=== PATIENT | female | born 1980 | race Caucasian/White ===

== ENCOUNTER 2020-02-01 16:02 | Emergency (ER) | payer BC, SELFPAY ==
--- NOTE | ~2020-02-01 | CT_ITS ---
EXAMINATION: CT brain wo con INDICATION: Headache COMPARISON: None TECHNIQUE: Standard unenhanced head CT. The dose-length product (DLP) was 605.33 mGy-cm. The mA was a djusted according to patient size. Iterative reconstruction technique was employed. FINDINGS: There is no intracranial hemorrhage, acute infarction, or abnormal mass lesion. The ventric les are normal. There is no abnormal mass effect or midline shift. The nava-white matter differentiat ion is normal. The basal cisterns are patent. The orbits are normal. The paranasal sinuses, mastoids and calvarium are normal. IMPRESSION: 1. No acute intracranial abnormality. Reviewed, dictated and finalized at location A. NOLOGIST
[2020-02-01 16:23] VITALS: BP 143/75; PULSE 83; RESP 17; TEMP 36.8; O2SAT 99
--- NOTE | 2020-02-01 17:54 | ED.HA ---
HPI - Headache General Chief Complaint: Headache Stated Complaint: MIGRAINE Time Seen by Provider: 02/01/20 17:33 Source: patient Mode of arrival: ambulatory Limitations: no limitations History of Present Illness HPI Narrative: This is a 39 year old female that presents to the ER for headaches for the last 3 weeks. Reports she has history of empty sella syndrome so gets headaches about once weekly. Reports over the last couple weeks she has been getting headaches daily. Reports no relief with uyop-fwa-ensdrve medications. Reports she also has a history of epilepsy for which she saw a neurologist, but she recently moved to the area and does not have one here. Reports some blurry vision with headaches. Denies fever, congestion, cough, vomiting, numbness, or weakness. Related Data Allergies Allergy/AdvReac Type Severity Reaction Status Date / Time tizanidine [From Zanaflex] Allergy Mild Unknown Verified 02/01/20 16:44 phenobarbital Allergy Unknown Verified 02/01/20 16:03 Review of Systems Review of Systems: Narrative: CONSTITUTIONAL: Denies fever EYES: Reports visual changes ENT: Denies rhinorrhea, congestion, sore throat RESPIRATORY: Denies cough GASTROINTESTINAL: Denies vomiting SKIN: Denies rash NEUROLOGIC: Reports headache. Denies numbness, or weakness. All systems reviewed & are unremarkable except as noted in HPI and below PMFSH Past Medical History Medical History (Updated 02/01/20 @ 19:29 by Dasha Diaz PA-C) Empty sella syndrome Epilepsy Surgical History Surgical History H/O section H/O: hysterectomy (~2008) Hx of appendectomy (~2018) Family History Family History Father Diabetes mellitus Hypertension Mother COPD (chronic obstructive pulmonary disease) Congestive heart failure Eczema Social History Social History Smoking status: Never smoker Second hand tobacco smoke exposure: No Alcohol intake: current Substance use: never Gender identity (if verbalized by the patient): Female Exam Narrative: Exam Narrative: GENERAL: Well-appearing, well-nourished, and in no acute distress. HEAD: Normocephalic, atraumatic. EYES: PERRLA and EOMI. ENT: Nares clear, no rhinorrhea or epistaxis. Mucous membranes moist. Oropharynx without tonsillar hypertrophy exudate or other lesions. Bilateral TMs pearly nava non-bulging NECK: Supple. No adenopathy or masses. CHEST: Clear to auscultation. No respiratory distress. No wheezes rales or rhonchi HEART: Regular rate and rhythm. No murmur heard. Normal peripheral pulses. EXTREMITIES: Normal range of motion. No edema. Strength equal in bilateral upper and lower extremities (5/5) SKIN: Warm, dry, no rash. NEURO: No focal deficits. Alert and oriented x3. Cranial nerves II through XII grossly intact. Normal [id number] PSYCH: Normal mood and affect Course Consultations Consultation #1: Spoke with Dr. Ott about patient and work-up will follow-up in clinic. Date: 02/01/20 Time: 19:27 Vital Signs Vital signs: Vital Signs Temperature 98.2 F 02/01/20 16:23 Pulse Rate 83 02/01/20 16:23 Respiratory Rate 17 02/01/20 16:23 Blood Pressure 143/75 H 02/01/20 16:23 Pulse Oximetry 99 02/01/20 16:23 Temperature 98.1 F 02/01/20 19:15 Pulse Rate 60 02/01/20 19:15 Respiratory Rate 16 02/01/20 19:15 Blood Pressure 102/59 L 02/01/20 19:15 Pulse Oximetry 95 02/01/20 19:15 MDM - Headache MDM Narrative Medical decision making narrative: Patient presents the emergency department for increasing headaches over the last couple of weeks. Reports history of empty sella syndrome for which she usually gets headaches that can be relieved by hccv-jsv-fnilvfx medicines. Also reports history of epilepsy that is controlled with lamotrigine and Keppra. [place]
[2020-02-01] MEDS: KETOROLAC 30 MG/ML VIAL (*BKC) IV PUSH (18:06)
[2020-02-01] MEDS: diphenhydrAMINE HCl INJ 50 MG/ML VIAL 25 MG IV PUSH (18:08)
[2020-02-01] MEDS: METOCLOPRAMIDE HCL INJ 10 MG/2 ML VIAL IV PUSH (18:11)
[2020-02-01] MEDS: SODIUM CHLORIDE 0.9% IV 1,000 ML 999 ML IV CONT (18:55)
[2020-02-01 19:15] VITALS: BP 102/59; PULSE 60; RESP 16; TEMP 36.7; O2SAT 95
[2020-02-01 20:09] VITALS: BP 121/74; PULSE 64; RESP 16; TEMP 36.6; O2SAT 98
== END 2020-02-01 20:15 | disposition home or self-care (01) ==
PROVIDERS: Emergency Provider Emergency Medicine; PCP Family Medicine
DX: R51.9 Headache, unspecified (principal); G40.909 Epilepsy, unspecified, not intractable, without status epilepticus; E23.6 Other disorders of pituitary gland
CPT/HCPCS: 70450; 96361; 96365; 96375; 99284; J0131; J1200; J1885; J2765; J7030

== ENCOUNTER 2020-03-17 08:31 | Outpatient (CLI) | payer BC, SELFPAY ==
--- NOTE | ~2020-03-17 | MR_ITS ---
EXAMINATION: MR brain/brain stem wo con EXAM DATE: 03/17/2020 08:59 INDICATION: Migraine headaches, symptoms 3 months. TECHNIQUE: Magnetic resonance imaging (MRI) of the brain/brain stem obtained without contrast. Jax al T1, axial diffusion, gradient echo (T2*), T1, T2, FLAIR sequences obtained. Correlation is made t o Head CT 02/01/2020 FINDINGS: There are no areas of restricted diffusion to suggest acute infarction. There is no acute hemorrhage seen on the T2*, a hemosiderin sensitive sequence. No intraparenchymal brain mass. The ve ntricles are normal in size. There are no extra-axial collections. Flow voids are seen in the cereb ral arteries on the T2-weighted sequences consistent with their expected patency. The orbits are unr emarkable. Soft tissue is unremarkable. IMPRESSION: 1. Normal brain MRI examination. Reviewed, dictated and finalized at location A. ROOM CLERK
== END 2020-03-17 08:32 ==
PROVIDERS: Visit Provider Psychiatry & Neurology Neurology
DX: G43.909 Migraine, unspecified, not intractable, without status migrainosus (principal)
CPT/HCPCS: 70551

== ENCOUNTER 2020-03-22 01:33 | Outpatient (CLI) | payer BC, SELFPAY ==
[2020-03-22 18:47] LABS: SARS-CoV-2 RNA PCR Negative
== END 2020-03-22 01:34 | disposition home or self-care (01) ==
LOC: ANHCOVIDDT 01:33
PROVIDERS: Family Medicine; Visit Provider Psychiatry & Neurology Neurology
DX: Z01.812 Encounter for preprocedural laboratory examination (principal); Z20.822 Contact with and (suspected) exposure to COVID-19
CPT/HCPCS: C9803; U0003; U0005

== ENCOUNTER 2020-03-25 08:55 | Outpatient (CLI) | payer BC, SELFPAY ==
[2020-03-21 11:42] VITALS: BMI 33.8
[2020-03-25] VITALS (9 sets, daily range): BP systolic 110–129; BP diastolic 63–81; PULSE 58–76; RESP 16–20; O2SAT 96–99
--- NOTE | ~2020-03-25 | XR_ITS ---
EXAMINATION: XR lumbar puncture diagnostic DATE: 03/25/2020 11:04 INDICATION: Migraine headache. TECHNIQUE: The procedure including the risks, benefits, and alternatives was discussed with the patie nt. Risks discussed included spinal headache, bleeding, and infection. The patient understood the ris ks and agreed to proceed. A timeout was performed to verify the patient's name, date of , and procedure to be performed. The skin overlying the L3-L4 level was prepped and draped in usual steri le fashion. Subcutaneous 1% lidocaine was used for local anesthesia. A 20 gauge spinal needle was a dvanced under fluoroscopic guidance. The needle was removed and the entry site was cleaned and dresse d. There were no immediate complications. Fluoroscopy exposure time was 0.0 minutes. The total numbe r of images was 1. FINDINGS: Real-time fluoroscopy demonstrates the needle at the L3-L4 level. The opening pressure was 13 cm water (Normal range is variably defined as 6-20 cm water and up to 25 cm water in obese patient s. Pressure >25 cm water is one of the modified Dandy criteria for idiopathic intracranial hypertensi on). 14 mL of clear, colorless fluid was collected in 4 tubes. IMPRESSION: 1. Successful fluoro-guided lumbar puncture. Reviewed, dictated and finalized at location A. TH INFORMATION TECHNOLOGIST
[2020-03-25 09:19] LABS: Mean Platelet Volume 9.7 fl (7.4-10.4); Platelet Count Result 217 k/mm3 (150-375)
[2020-03-25 09:53] LABS: INR 0.9; Prothrombin Time 12.6 Seconds (11.1-14.7)
[2020-03-25 11:00] LABS: Glucose CSF 57 mg/dL (40-70); Total Protein CSF 67 mg/dL (12-60)
--- NOTE | 2020-03-25 11:31 | SUR.PHASEII ---
RN checked on patient about 1125. Patient stated she had some discomfort at the puncture site and rated it a 6. RN assessed site and there is no drainage at this time. Patient also stated that she feels jittery. RN contacted Dr. Vargas. Dr. Vargas came to the bedside to assess patient himself.
[2020-03-25 11:32] LABS: Appearance CSF Clear (Clear); CSF source CSF; Color CSF Colorless (Colorless); Lymphocytes CSF 93 % (40-80); Monocytes CSF 5 % (15-45); Neutrophils CSF 2 % (0-6); Nucleated Cell CSF 5 /uL (0-5); Red Blood Cell CSF 0 (0-2)
--- NOTE | 2020-03-25 13:19 | SUR.PHASEII ---
1230 - DR PRABHAKAR CALLED WITH UPDATE. OKAYED FOR PT TO BE DISCHARGE
== END 2020-03-25 08:56 | disposition home or self-care (01) ==
PROVIDERS: Radiology Diagnostic Radiology; PCP Family Medicine; Visit Provider Psychiatry & Neurology Neurology
DX: G43.909 Migraine, unspecified, not intractable, without status migrainosus (principal)
CPT/HCPCS: 36415; 62328; 82945; 84157; 85049; 85610; 87070; 89051

== ENCOUNTER 2020-03-27 10:30 | Emergency (ER) | payer BC, SELFPAY ==
[2020-03-27] VITALS (21 sets, daily range): BP systolic 95–144; BP diastolic 54–102; PULSE 52–90; RESP 9–24; TEMP 36.4; O2SAT 97–100
--- NOTE | ~2020-03-27 | XR_ITS ---
EXAMINATION: XR injection blood patch w img EXAM DATE: 03/27/2020 14:00 INDICATION: Spinal headache. TECHNIQUE: Fluoroscopy used during XR injection blood patch w img performed by Dr. Ortiz. The DAP f or this procedure was 16.7 mGym2. Correlation made with LP image from 03/25/2020 Patient's headache and history was discussed with the patient who had a lumbar puncture 2 days earlie r. Benefits, risks, alternatives were discussed with her. She agreed to proceed with this blood patch as treatment for her headache. The same L3-4 level was sterilized and prepped in standard fashion. A total of 3 cc 1% lidocaine was injected for local anesthetic. The 18-gauge noncutting epidural needle was utilized with loss of resi stance technique. This needle was advanced into the epidural space. A lateral projection confirmed ne edle tip depth. At no time did CSF freely flow through the needle, including during Valsalva. Vascula r access nurse Elena placed in IV in patients forearm under sterile technique. She withdrew 15 mL of p atient's own blood after needle was in position. This was then injected slowly through the epidural n eedle. Needle was then removed. There are no immediate complications. Patient returned to emergency r o for 2 hours observation. FINDINGS: Images demonstrate localization of the L3-4 level and left paracentral approach. Lateral p rojection demonstrates tip of needle overlying the epidural canal. IMPRESSION: Successful L3-4 blood patch administration. Reviewed, dictated and finalized at location B. UM METALIZER OPERATOR
[2020-03-27 11:26] LABS: Basophils Absolute Auto 0.1 K/mm3 (0.0-0.1); Basophils Percent Auto 0.8 % (0.2-1.2); Eosinophils Absolute Auto 0.2 K/mm3 (0-0.3); Eosinophils Percent Auto 2.3 % (0-4.4); Hematocrit 43.2 % (37.0-47.0); Hemoglobin 14.8 g/dL (12.0-15.0); Immature Granulocyte Absolute 0.03 K/mm3 (0.00-0.031); Immature Granulocyte Percent A 0.4 % (0-0.5); Lymphocytes Absolute Auto 2.38 K/mm3 (0.9-3.2); Lymphocytes Percent Auto 31.7 % (18.3-44.2); Mean Corpuscular HGB Conc 34.3 g/dl (32-36); Mean Corpuscular Hemoglobin 30.5 pg (26-34); Mean Corpuscular Volume 89.1 fl (80-100); Mean Platelet Volume 9.9 fl (7.4-10.4); Monocytes Absolute Auto 0.5 K/mm3 (0.1-0.6); Monocytes Percent Auto 6.8 % (2.6-8.5); Neutrophils Absolute Auto 4.4 K/mm3 (1.3-6.7); Platelet Count Result 245 k/mm3 (150-375); Red Blood Count 4.85 M/mm3 (4.2-5.4); Red Cell Distribution Width 11.6 % (11.5-14.5); White Blood Count 7.5 K/mm3 (4.5-10.0)
[2020-03-27 11:38] LABS: Anion Gap 5 mmol/L (8-16); Blood Urea Nitrogen 12 mg/dL (7-17); Calcium 9.1 mg/dL (8.4-10.2); Carbon Dioxide 28 mmol/L (22-30); Chloride 104 mmol/L (98-107); Estimated CRCL calculation 102 ml/min; Estimated Glomerular Filt Rate > 60; Glucose 96 mg/dL (65-105); Potassium 3.7 mmol/L (3.4-5.0); Sodium 137 mmol/L (137-145)
[2020-03-27] MEDS: KETOROLAC 30 MG/ML VIAL (*BKC) IV PUSH (11:44)
[2020-03-27] MEDS: METOCLOPRAMIDE HCL INJ 10 MG/2 ML VIAL IV PUSH (11:44)
[2020-03-27] MEDS: SODIUM CHLORIDE 0.9% IV 1,000 ML 999 ML IV CONT (11:44)
[2020-03-27] MEDS: diphenhydrAMINE HCl INJ 50 MG/ML VIAL 25 MG IV PUSH (11:44)
--- NOTE | 2020-03-27 12:03 | ED.GENADULT ---
HPI - General Adult General Chief complaint: Headache Stated complaint: Headache, Vomiting Time Seen by Provider: 03/27/20 11:12 Source: patient Mode of arrival: ambulatory Limitations: no limitations History of Present Illness HPI narrative: Patient is a 39-year-old female who presents to emergency department for evaluation of headache and neck pain patient had a lumbar puncture performed on Tuesday at [facility] for migraine headaches that she has been experiencing she is followed by neurology at [place] who had ordered the lumbar puncture patient notes that since she has had neck and head pain had similar occurrence in the past when she had a lumbar puncture patient denies fever or URI symptoms or other complaints and on arrival appears to be uncomfortable but in no distress has not taken anything for her symptoms. Patient notes the headache is caused associated nausea and vomiting Related Data Home Medications Medication Instructions Recorded Confirmed lamotrigine [Lamictal] 100 mg PO BID 03/21/20 03/21/20 lamotrigine [Lamictal] 200 mg PO .at night 03/21/20 03/21/20 levetiracetam [Keppra] 1,000 mg PO Q12H 03/21/20 03/21/20 ubrogepant [Ubrelvy] 100 mg PRN 03/21/20 03/21/20 Allergies Allergy/AdvReac Type Severity Reaction Status Date / Time tizanidine [From Zanaflex] Allergy Mild Unknown-RECEIVED Verified 03/27/20 10:36 AN SMALL CHILD phenobarbital Allergy Unknown-RECEIVED Verified 03/27/20 10:36 A SMALL CHILD PMFSH Past Medical History Medical History Empty sella syndrome Epilepsy Surgical History Surgical History H/O section H/O: hysterectomy (~2008) Hx of appendectomy (~2018) Family History Family History Father Diabetes mellitus Hypertension Mother COPD (chronic obstructive pulmonary disease) Congestive heart failure Eczema Social History Social History Smoking status: Never smoker Second hand tobacco smoke exposure: No Alcohol intake: current Substance use: never Gender identity (if verbalized by the patient): Female Exam Narrative: Exam Narrative: GENERAL: Well-appearing, well-nourished, uncomfortable and in no acute distress. HEAD: Normocephalic, atraumatic. EYES: PERRLA and EOMI. ENT: Nares clear, no rhinorrhea or epistaxis. Mucous membranes moist. CHEST: Clear to auscultation. No respiratory distress. No wheezes rales or rhonchi HEART: Regular rate and rhythm. No murmur heard. Normal peripheral pulses. ABDOMEN: Soft, nontender, nondistended EXTREMITIES: Normal range of motion. No edema. SKIN: Warm, dry, no rash. NEURO: No focal deficits. Alert and oriented x3. Cranial nerves II through XII grossly intact PSYCH: Normal mood and affect. Course Reevaluation(s) Reevaluation #1: Patient notes that she is feeling markedly better at this time feels comfortable for discharge was observed 2 hours after the procedure is recommended Date: 03/27/20 Time: 16:07 Consultations Consultation #1: Discussed case with radiologist Dr. Vargas who will take the patient over to perform blood patch Date: 03/27/20 Time: 12:04 Vital Signs Vital signs: Vital Signs Temperature 97.5 F L 03/27/20 10:34 Pulse Rate 78 03/27/20 10:34 Respiratory Rate 18 03/27/20 10:34 Blood Pressure 144/85 H 03/27/20 10:34 Pulse Oximetry 99 03/27/20 10:34 Temperature 97.5 F L 03/27/20 10:34 Pulse Rate 52 L 03/27/20 14:37 Respiratory Rate 16 03/27/20 14:37 Blood Pressure 138/78 03/27/20 14:37 Pulse Oximetry 99 03/27/20 14:37 Medical Decision Making MDM Narrative Medical decision making narrative: Patient received blood patch for likely post LP headache with marked improvement with blood patch. There are o focal neurolo
[2020-03-27 12:56] LABS: INR 0.9; Prothrombin Time 12.7 Seconds (11.1-14.7)
[2020-03-27 12:58] LABS: Partial Thromboplastin Time 29.8 SECONDS (22.3-36.8)
== END 2020-03-27 16:50 | disposition home or self-care (01) ==
PROVIDERS: Emergency Provider Emergency Medicine; PCP Family Medicine
DX: G97.1 Other reaction to spinal and lumbar puncture (principal); G40.909 Epilepsy, unspecified, not intractable, without status epilepticus
CPT/HCPCS: 36415; 62273; 77003; 80048; 85025; 85610; 85730; 96365; 96375; 99284; J0131; J1200; J1885; J2765; J7030

== ENCOUNTER 2021-02-11 16:32 | Emergency (ER) | payer BC, SELFPAY ==
--- NOTE | ~2021-02-11 | CT_ITS ---
EXAMINATION: CT brain wo con DATE: 02/11/2021 21:48 INDICATION: Headache TECHNIQUE: Computed tomography (CT) of the head was performed without intravenous contrast. Sagittal and coronal reconstructions were performed. The mA was adjusted according to patient size. Iterative reconstruction technique was employed. The dose-length product was 605.33 mGy-cm. COMPARISON: head CT dated 02/01/2020 FINDINGS: No acute intracranial hemorrhage, acute infarction or abnormal extra axial fluid collection. Ventricl es are normal and symmetric. No mass/mass effect. The orbits, paranasal sinuses and mastoid air cells are normal. IMPRESSION: 1. Normal head CT. Reviewed, dictated and finalized at location H. ER OPERATOR IMPRESSION: 1. Normal head CT.
--- NOTE | ~2021-02-11 | XR_ITS ---
EXAMINATION: XR chest 2V 02/11/2021 17:11 INDICATION: Left-sided chest pain PROCEDURE: 2 view chest COMPARISON: No prior studies for comparison. FINDINGS: The lungs are clear. The cardiomediastinal silhouette is within normal limits. There are no pleural effusions. There is no pneumothorax suspected. IMPRESSION: 1: NO ACUTE CARDIOPULMONARY DISEASE. Reviewed, dictated and finalized at location A. ICAL PHLEBOTOMIST
--- NOTE | 2021-02-11 16:45 | ECG_ITS ---
Measurements Intervals [place] Rate: 80 P: 21 [place]: 160 QRS: 39 QRSD: 82 T: 18 QT: 342 QTc: 395 Interpretive Statements SINUS RHYTHM BASELINE ARTIFACT- I, II, III, AVF NORMAL ECG Electronically Signed On 02-12-2021 7:37:42 EMISSIONS ENGINEER by Mani Meyer D.O.
[2021-02-11 16:55] VITALS: BP 146/94; PULSE 71; RESP 18; TEMP 36.2; O2SAT 99
[2021-02-11 17:24] LABS: Basophils Absolute Auto 0.1 K/mm3 (0.0-0.1); Basophils Percent Auto 0.8 % (0.2-1.2); Eosinophils Absolute Auto 0.3 K/mm3 (0-0.3); Eosinophils Percent Auto 2.6 % (0-4.4); Hematocrit 40.7 % (37.0-47.0); Hemoglobin 14.1 g/dL (12.0-15.0); Immature Granulocyte Absolute 0.03 K/mm3 (0.00-0.031); Immature Granulocyte Percent A 0.3 % (0-0.5); Lymphocytes Absolute Auto 2.75 K/mm3 (0.9-3.2); Mean Corpuscular HGB Conc 34.6 g/dl (32-36); Mean Corpuscular Hemoglobin 31.8 pg (26-34); Mean Corpuscular Volume 91.9 fl (80-100); Mean Platelet Volume 9.7 fl (7.4-10.4); Monocytes Absolute Auto 0.9 K/mm3 (0.1-0.6); Monocytes Percent Auto 8.4 % (2.6-8.5); Neutrophils Absolute Auto 6.2 K/mm3 (1.3-6.7); Neutrophils Percent Auto 60.9 % (45.5-73.1); Platelet Count Result 225 k/mm3 (150-375); Red Blood Count 4.43 M/mm3 (4.2-5.4); White Blood Count 10.2 K/mm3 (4.5-10.0)
[2021-02-11 17:36] LABS: Alanine Aminotransferase 15 U/L (4-35); Albumin Level 4.5 g/dL (3.5-5.1); Alkaline Phosphatase 52 U/L (38-126); Anion Gap 6 mmol/L (8-16); Aspartate Amino Transferase 22 U/L (14-36); Bilirubin,Total 0.4 mg/dL (0.2-1.3); Blood Urea Nitrogen 16 mg/dL (7-17); Calcium 9.2 mg/dL (8.4-10.2); Carbon Dioxide 27 mmol/L (22-30); Chloride 101 mmol/L (98-107); Estimated CRCL calculation 105 ml/min; Estimated Glomerular Filt Rate > 60; Glucose 102 mg/dL (65-110); INR 0.9; Lipase 121 U/L (23-300); Potassium 3.5 mmol/L (3.4-5.0); Prothrombin Time 12.3 Seconds (11.1-14.7); Sodium 134 mmol/L (137-145)
[2021-02-11 17:37] LABS: Partial Thromboplastin Time 30.1 SECONDS (22.3-36.8)
[2021-02-11 17:47] LABS: Troponin I < 0.012 ng/mL (0.000-0.034)
[2021-02-11 19:46] VITALS: BP 160/78; PULSE 73; RESP 18; TEMP 36.8; O2SAT 97
--- NOTE | 2021-02-11 21:39 | ED.CHESTPAIN ---
HPI - Chest Pain General Chief Complaint: Chest Pain Stated Complaint: chest pain, onset 0100 Time Seen by Provider: 02/11/21 21:25 Source: patient Mode of arrival: ambulatory Limitations: no limitations History of Present Illness HPI narrative: Patient is a 40-year-old female complaining of chest pain, left chest wall, sharp, nonradiating, 6, currently down to 1 out of 10 started around 1 AM this morning states it woke her up from sleep. Patient also complaining of a headache, frontal, 3 out of 10, worse when she bends down started today. Patient also complaining of having a seizure 5 days ago that lasted for less than 1 minute, states that she has not had a seizure since 2009, currently taking Keppra, she does have a history of epilepsy. Patient denies any speech or visual disturbance, dizziness, neck pain or stiffness, focal weakness or numbness, or unsteady gait. Patient denies any shortness of breath, abdominal pain, nausea, vomiting, diaphoresis, fever or chills. Related Data Home Medications Medication Instructions Recorded Confirmed ubrogepant [Ubrelvy] 100 mg PRN 03/21/20 03/21/20 Allergies Allergy/AdvReac Type Severity Reaction Status Date / Time tizanidine [From Zanaflex] Allergy Mild Unknown-RECEIVED Verified 03/27/20 10:36 AN SMALL CHILD phenobarbital Allergy Unknown-RECEIVED Verified 03/27/20 10:36 A SMALL CHILD Review of Systems Review of Systems: All systems reviewed & are unremarkable except as noted in HPI and below Constitutional: Constitutional: Denies body ache(s), Denies chills, Denies excessive sweating, Denies fatigue, Denies fever(s), Denies headache(s), Denies lethargy, Denies malaise, Denies weakness and Denies weight loss Eyes: Eyes: Denies blurry vision, Denies change in vision and Denies loss of vision ENT: Denies dizziness, Denies ear discharge, Denies headache(s), Denies lip swelling, Denies epistaxis, Denies nasal congestion, Denies neck pain, Denies throat swelling and Denies tongue swelling Cardiovascular: Cardiovascular: Denies diaphoresis, Denies rapid heart rate, Denies edema, Denies irregular heart rhythm, Denies lightheadedness, Denies palpitations, Denies dyspnea and Denies dyspnea on exertion Respiratory: Respiratory: Denies chest congestion, Denies cough, Denies hemoptysis, Denies dyspnea and Denies dyspnea on exertion Gastrointestinal: Gastrointestinal: Denies abdominal pain, Denies melena, Denies hematochezia, Denies diarrhea, Denies nausea, Denies vomiting and Denies hematemesis Musculoskeletal: Musculoskeletal: Denies abnormal gait, Denies deformity, Denies joint swelling, Denies limited range of motion, Denies neck pain and Denies numbness Neurologic: Denies Abnormal speech present, Denies abnormal gait, Denies confusion, Denies dizziness, Denies focal weakness, Denies loss of vision, Denies numbness, Denies Other visual disturbances, Denies Sensory deficit (Neuro) and Denies weakness Psychiatric: Psychiatric: Denies confusion, Denies depression, Denies auditory hallucinations, Denies homicidal ideation and Denies suicidal ideation Endocrine: Endocrine: Denies cold intolerance, Denies excessive sweating, Denies fatigue, Denies heat intolerance and Denies palpitations Hematologic/Lymphatic: Hematologic/Lymphatic: Denies easy bleeding and Denies easy bruising Allergic/Immunologic: Allergic/Immunologic: Denies lip swelling, Denies throat swelling and Denies tongue swelling PMFSH Past Medical History Medical History Empty sella syndrome Epilepsy Surgical History Surgical History H/O section H/O: hysterectomy (~2009) Hx of appendectomy (~2019) Family History Family History Father Diabetes mellitus Hypertension Mother COPD (chronic obstructive pulmonary disease) Conges
[2021-02-11 22:13] VITALS: BP 121/73; PULSE 72; RESP 14; O2SAT 100
[2021-02-11 22:29] LABS: Troponin I < 0.012 ng/mL (0.000-0.034)
[2021-02-11 23:49] VITALS: BP 129/71; PULSE 67; RESP 18; O2SAT 100
[2021-02-16 06:21] LABS: Levetiracetam Keppra 18.5 mcg/mL (12.0-46.0)
== END 2021-02-11 23:53 | disposition home or self-care (01) ==
PROVIDERS: General Practice; Emergency Provider Emergency Medicine; PCP Family Medicine
DX: R07.89 Other chest pain (principal); R56.9 Unspecified convulsions; R51.9 Headache, unspecified
CPT/HCPCS: 36415; 70450; 71046; 80053; 80177; 83690; 84484; 85025; 85610; 85730; 93005; 99284

== ENCOUNTER 2021-02-15 08:19 | Emergency (ER) | payer BC, SELFPAY ==
[2021-02-15 08:35] VITALS: BP 114/94; PULSE 77; RESP 16; TEMP 37.2; O2SAT 98
--- NOTE | 2021-02-15 08:36 | ED.URI ---
HPI - URI/Sore Throat General Chief Complaint: Upper Respiratory Infection Stated Complaint: Positive covid Time Seen by Provider: 02/15/21 08:36 Source: patient and RN notes reviewed Mode of arrival: ambulatory Limitations: no limitations History of Present Illness HPI Narrative: Basia is a 40-year-old female patient who ambulated into the [facility]. Patient states she did not at home Covid test this morning that was positive. Patient states she has had nasal congestion, horrible body aches, sore throat since . Patient son that lives with her tested positive on . Patient does have a history of epilepsy., Patient has been taking ibuprofen, Tylenol, and Mucinex. MD elicited complaint: fever, cough and nasal congestion Related Data Home Medications Medication Instructions Recorded Confirmed ubrogepant [Ubrelvy] 100 mg PO PRN 03/21/20 02/15/21 dxnchtqywj-pmghlqyuxibrz-qsssmnyi 1 cap PO DAILY PRN cap 02/12/21 02/15/21 50 mg-300 mg-40 mg capsule ondansetron 4 mg PO DAILY 02/15/21 02/15/21 Allergies Allergy/AdvReac Type Severity Reaction Status Date / Time tizanidine [From Zanaflex] Allergy Mild Unknown-RECEIVED Verified 02/15/21 08:42 AN SMALL CHILD phenobarbital Allergy Unknown-RECEIVED Verified 02/15/21 08:42 A SMALL CHILD Review of Systems Review of Systems: CONSTITUTIONAL: + body aches,+ fever, +chills, denies sweats. EYES: Denies visual changes, redness, or discharge. ENT: + rhinorrhea, congestion, sore throat, denies otalgia. CARDIOVASCULAR: Denies chest pain, palpitations, or edema. RESPIRATORY: + cough denies dyspnea. GASTROINTESTINAL: Denies abdominal pain, nausea, vomiting, or diarrhea. GENITOURINARY: Denies dysuria or hematuria. SKIN: Denies rash, itching, or wounds. MUSCULOSKELETAL: Denies back pain, joint pain, or myalgia. NEUROLOGIC: Denies headache, numbness, tingling, or weakness. PSYCH: Denies depression or anxiety. All systems reviewed & are unremarkable except as noted in HPI and below PMFSH Past Medical History Medical History Empty sella syndrome Epilepsy Surgical History Surgical History H/O section H/O: hysterectomy (~2009) Hx of appendectomy (~2019) Family History Family History Father Diabetes mellitus Hypertension Mother COPD (chronic obstructive pulmonary disease) Congestive heart failure Eczema Social History Social History Smoking status: Never smoker Second hand tobacco smoke exposure: No Alcohol intake: current Substance use: never Gender identity (if verbalized by the patient): Female Sexual Orientation (if Verbalized by the Patient): Straight or Heterosexual Comments At time of signature, I have reviewed and agree with nursing past medical, surgical, social and family history unless otherwise noted. Please see nursing chart for further information. There is no relevant family history pertinent to the presenting complaint Exam Narrative: GENERAL: Well-appearing, well-nourished, and in no acute distress. HEAD: Normocephalic, atraumatic. EYES: EOMI. No redness or drainage. Conjunctivae normal. ENT: Mucous membranes pink and moist. Nasal membranes erythematous with clear rhinorrhea. Maxillary sinus swelling is noted. Bilateral tympanic membranes are dull with moderate fluid no erythema. Posterior pharynx is erythemic with mild edema and moderate postnasal drainage. . Uvula midline. NECK: Normal AROM. Supple. Bilateral anterior lymphadenopathy. CHEST: No respiratory distress. Clear to auscultation. HEART: Regular rate and rhythm. No murmur appreciated. Normal peripheral pulses. . MUSCULOSKELETAL: No bony tenderness. EXTREMITIES: Normal range of motion. No edema. SKIN
== END 2021-02-15 09:01 | disposition home or self-care (01) ==
PROVIDERS: Emergency Provider Nurse Practitioner Family; PCP Family Medicine
DX: J01.00 Acute maxillary sinusitis, unspecified (principal); Z20.822 Contact with and (suspected) exposure to COVID-19; G40.909 Epilepsy, unspecified, not intractable, without status epilepticus
CPT/HCPCS: 87426; 99213; C9803; G0463

== ENCOUNTER → 2021-02-16 07:47 | Outpatient (CLI) | payer BC, SELFPAY ==
[2021-02-16 19:04] LABS: SARS-CoV-2 RNA PCR Positive
== END ==
PROVIDERS: PCP Family Medicine; Visit Provider Nurse Practitioner Family
DX: U07.1 COVID-19 (principal); J32.9 Chronic sinusitis, unspecified
CPT/HCPCS: C9803; U0003; U0005

== ENCOUNTER 2021-04-19 17:04 | Emergency (ER) | payer BC, SELFPAY ==
--- NOTE | ~2021-04-19 | XR_ITS ---
EXAMINATION: XR foot LT min 3V DATE: 04/19/2021 17:28 INDICATION: Left foot pain TECHNIQUE: Dorsoplantar, lateral, and 2 oblique views of the left foot were obtained. COMPARISON: None. FINDINGS: Bone alignment is normal. There is no fracture. The soft tissues are unremarkable. A planta r calcaneal enthesophyte is noted. IMPRESSION: 1. No acute osseous abnormality. Reviewed, dictated and finalized at location F. 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
--- NOTE | ~2021-04-19 | XR_ITS ---
EXAMINATION: XR elbow RT min 3V INDICATION: Right elbow pain TECHNIQUE: Four views of the right elbow were obtained. COMPARISON: None available FINDINGS: There is no fracture, dislocation, or subluxation. The bones, soft tissues, and joint space s are normal. IMPRESSION: 1. No acute osseous abnormality. Reviewed, dictated and finalized at location F. ENGINEER
[2021-04-19 17:12] VITALS: BP 137/77; PULSE 87; RESP 16; TEMP 37.6; O2SAT 99
--- NOTE | 2021-04-19 17:13 | ED.FALL ---
HPI - Fall General Chief Complaint: Fall Stated Complaint: swollen rt elbow/left ankle pain Time Seen by Provider: 04/19/21 17:13 Source: patient, RN notes reviewed and old records reviewed Mode of arrival: ambulatory Limitations: no limitations History of Present Illness HPI Narrative: 40-year-old female presents to the [facility] with complaints of right elbow pain and left lateral foot pain patient states that she slipped and fell landing on her right elbow. Bruising noted. Did not hit head. No loss of consciousness. No neck pain or back pain. States this occurred last night. Related Data Allergies Allergy/AdvReac Type Severity Reaction Status Date / Time tizanidine [From Zanaflex] Allergy Mild Unknown-RECEIVED Verified 04/19/21 17:23 AN SMALL CHILD phenobarbital Allergy Unknown-RECEIVED Verified 04/19/21 17:23 A SMALL CHILD Review of Systems Review of Systems: All systems reviewed & are unremarkable except as noted in HPI and below Constitutional: Constitutional: Reports no additional constitutional complaints, Denies chills and Denies fever(s) Eyes: Eyes: Reports no additional eye complaints ENT: Reports system reviewed and no additional complaints, except as documented Cardiovascular: Cardiovascular: Reports no additional cardiovascular complaints and Denies chest pain Respiratory: Respiratory: Reports no additional respiratory complaints Gastrointestinal: Gastrointestinal: Reports no additional gastrointestinal complaints, Denies abdominal pain, Denies nausea and Denies vomiting Musculoskeletal: Musculoskeletal: Reports as per HPI and Reports joint swelling (Right elbow, left lateral foot) Integumentary/Breasts: Skin/Breast: Reports as per HPI Neurologic: Reports system reviewed and no additional complaints, except as documented Psychiatric: Psychiatric: Reports no additional psychiatric complaints Allergic/Immunologic: Allergic/Immunologic: Reports no additional allergic/immunologic complaints [facility] Past Medical History Medical History Empty sella syndrome Epilepsy History of COVID-19 Surgical History Surgical History H/O section H/O: hysterectomy (~2009) Hx of appendectomy (~2019) Family History Family History Father Diabetes mellitus Hypertension Mother COPD (chronic obstructive pulmonary disease) Congestive heart failure Eczema Social History Social History Second hand tobacco smoke exposure: No Alcohol intake: current Drinks per week: 2 Substance use: never Substance use type: marijuana Other substance usage details: smoking daily and edibles occasionally Gender identity (if verbalized by the patient): Female Sexual Orientation (if Verbalized by the Patient): Straight or Heterosexual Comments At the time of my signature, I reviewed and agree with the nursing past medical, surgical, social, and family history. There is no relevant family history pertinent to the patient complaint. Exam Const: General: healthy appearing, no acute distress and alert Nutritional Appearance: well nourished and obese Orientation/consciousness: patient oriented x3 Limitations: no limitations HENMT: Head: normal to inspection Ears: external ears normal Eyes: Pupils: Equal, round and reactive pupils present Neck: Neck: normal visual inspection, no lymphadenopathy and no meningeal signs Chest: Chest palpation & inspection: normal inspection of the chest Resp: Effort & Inspection: normal respiratory effort and no use of accessory muscles Auscultation: clear to auscultation bilaterally, no crackles, no rales, no rhonchi and no wheezes Cardio: Rate: regular rate Rhythm: regular rhythm GI: GI Palp: Yes Soft to palpati
== END 2021-04-19 17:45 | disposition home or self-care (01) ==
PROVIDERS: Emergency Provider Nurse Practitioner; PCP Physician Assistant
DX: S50.01XA Contusion of right elbow, initial encounter (principal); S90.32XA Contusion of left foot, initial encounter; W01.0XXA Fall on same level from slipping, tripping and stumbling without subsequent striking against object, initial encounter; G40.909 Epilepsy, unspecified, not intractable, without status epilepticus
CPT/HCPCS: 73080; 73630; 99214; G0463

== ENCOUNTER 2022-11-01 19:42 | Emergency (ER) | payer OTHER, SELFPAY ==
--- NOTE | ~2022-11-01 | CT_ITS ---
EXAMINATION: CT brain wo con DATE: 11/01/2022 22:34 INDICATION: headache, dizzy, photophobia, hx of CSF fluid leak . TECHNIQUE: Computed tomography (CT) of the head was performed without intravenous contrast. The mA wa s adjusted according to patient size. Iterative reconstruction technique was employed. The dose-lengt h product was 681.00 mGy-cm. COMPARISON: 02/11/2021. FINDINGS: No acute intracranial hemorrhage or extra-axial fluid collection. No hydrocephalus, mass, or herniation. No acute ischemic infarct. Unremarkable dural venous sinus attenuation. No acute osseous abnormality. The aerated spaces are clear. IMPRESSION: No acute intracranial process. Reviewed, dictated and finalized at location K.
[2022-11-01 20:28] VITALS: BP 146/78; PULSE 70; RESP 15; TEMP 36.4; O2SAT 100
[2022-11-01 23:01] VITALS: BP 157/81; PULSE 46; RESP 18; O2SAT 100
[2022-11-01] MEDS: METOCLOPRAMIDE HCL INJ 10 MG/2 ML VIAL IV PUSH (23:15)
[2022-11-01] MEDS: diphenhydrAMINE HCl INJ 50 MG/ML VIAL IV PUSH (23:16)
[2022-11-01] MEDS: SODIUM CHLORIDE 0.9% IV 1,000 ML 999 ML IV CONT (23:23)
[2022-11-02 00:36] VITALS: BP 110/67; PULSE 65; O2SAT 100
[2022-11-02] MEDS: KETOROLAC 30 MG/ML VIAL (*BKC) IV PUSH (00:41)
[2022-11-02] MEDS: MAGNESIUM SULF 2 GM/WATER 50ML 2 GM/50 ML BAG IVPB (00:42)
[2022-11-02 01:28] VITALS: BP 107/73; PULSE 57; RESP 18; O2SAT 100
--- NOTE | 2022-11-02 02:26 | ED.HA ---
HPI - Headache General Chief Complaint: Headache Stated Complaint: headache Time Seen by Provider: 11/01/22 22:23 History of Present Illness HPI Narrative: Pt presents to the ER from home with persistent headache over the past three days. She has a history of headaches but they normally go away with home medications. This headache has been persistent but waxing and waning in intensity. 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 The heat is making her headache worse. Today at work she felt fuzzy when working. A couple days ago when the headache restarted her speech was slurred. A few years ago patient had a history of headaches and was seen by a neurologist. She had an LP that drained fluid off and her headache resolved. Related Data Allergies Allergy/AdvReac Type Severity Reaction Status Date / Time tizanidine [From Zanaflex] Allergy Mild Unknown-RECEIVED Verified 11/01/22 23:00 AN SMALL CHILD phenobarbital Allergy Unknown-RECEIVED Verified 11/01/22 23:00 A SMALL CHILD Review of Systems Review of Systems: CONSTITUTIONAL: Denies fever, chills, or sweats. uncomfortable EYES: Denies visual changes, redness, or discharge. ENT: Denies rhinorrhea, congestion, sore throat, or otalgia. CARDIOVASCULAR: Denies chest pain, palpitations, or edema. RESPIRATORY: Denies cough or dyspnea. GASTROINTESTINAL: Denies abdominal pain, nausea, vomiting, or diarrhea. GENITOURINARY: Denies dysuria or hematuria. SKIN: Denies rash or itching. MUSCULOSKELETAL: Denies back pain, joint pain, or myalgia. NEUROLOGIC: Denies numbness, or weakness. + headache PSYCHIATRIC: Denies anxiety or depression. [facility] Past Medical History Medical History Depression Empty sella syndrome Epilepsy History of COVID-19 Surgical History Surgical History H/O section H/O: hysterectomy (~2008) Hx of appendectomy (~2019) Family History Family History Father Diabetes mellitus Hypertension Mother COPD (chronic obstructive pulmonary disease) Congestive heart failure Eczema Social History Social History (Updated 03/16/22 @ 08:59 by Nava Castle PA-C) Smoking status: Never smoker Second hand tobacco smoke exposure: No Alcohol intake: current Substance use: current Substance use type: marijuana Other substance usage details: smoking daily and edibles occasionally Lack of Transportation: No Lack of Food: Never True Current Housing: I Have Housing Concerned About Future Housing: No Difficulty Paying Gas/Electric Bills: No Difficulty Paying for Meds: No Currently Unemployed: No Education: Decline to Answer Difficulty w/ Childcare or Family Care: No Living arrangements: with family Occupation/Education: occupation Gender identity (if verbalized by the patient): Female Sexual Orientation (if Verbalized by the Patient): Straight or Heterosexual Exam Narrative: GENERAL: Well-appearing, well-nourished, and in no acute distress. HEAD: Normocephalic, atraumatic. EYES: PERRLA and EOMI. ENT: Nares clear, no rhinorrhea or epistaxis. Mucous membranes moist. NECK: Supple. CHEST: Clear to auscultation. No respiratory distress. HEART: Regular rate and rhythm. ABDOMEN: Soft, nontender, nondistended. EXTREMITIES: Normal range of motion. No edema. SKIN: Warm, dry, no rash. NEURO: No focal deficits. Alert and oriented x3. PSYCH: Normal mood and affect. Course Course Emergency Course: Patient took Benadryl a few hours prior to arrival. Given a second dose along with Reglan and fluids. Headache slightly improved. Magnesium and Toradol added after head CT resulted as normal. Vital Signs Vital signs: Vital Signs Temperature 36.4 C 11/01
[2022-11-02] MEDS: MORPHINE SULFATE (*CRX) 4 MG/ML INJ IV PUSH (03:41)
[2022-11-02 03:46] VITALS: BP 141/69; PULSE 54; RESP 17; O2SAT 100
[2022-11-02] MEDS: SUMAtriptan SUCCINATE 25 MG TABLET 100 MG PO (04:20)
[2022-11-02 04:38] VITALS: BP 121/71; PULSE 50; RESP 19; O2SAT 99
[2022-11-02 06:17] VITALS: BP 125/78; PULSE 70; O2SAT 97
== END 2022-11-02 06:16 | disposition home or self-care (01) ==
PROVIDERS: Emergency Provider Emergency Medicine; PCP Family Medicine
DX: R51.9 Headache, unspecified (principal); F12.90 Cannabis use, unspecified, uncomplicated; G40.909 Epilepsy, unspecified, not intractable, without status epilepticus; F32.A Depression, unspecified
CPT/HCPCS: 70450; 96361; 96365; 96374; 96375; 99284; A9270; J1100; J1200; J1885; J2270; J2765; J3475; J7030

== ENCOUNTER 2022-11-16 14:54 | Inpatient (IN) | payer OTHER, SELFPAY ==
[2022-11-16] VITALS (23 sets, daily range): BP systolic 106–137; BP diastolic 49–86; PULSE 59–83; RESP 10–30; TEMP 36.6–37; O2SAT 94–100; BMI 27.0
--- NOTE | ~2022-11-16 | MR_ITS ---
EXAMINATION: MR brain/brain stem wo/w con DATE: 11/17/2022 11:38 INDICATION: Headache. Lower extremity weakness. Slurred speech. TECHNIQUE: Magnetic resonance imaging (MRI) of the brain and brainstem was performed without and with 15 mL MultiHance intravenous contrast. COMPARISON: Brain MRI 03/17/2020 FINDINGS: There is no intracranial hemorrhage, acute infarction, or abnormal intracranial mass lesion .. The hippocampi are normal and symmetric. 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 The ventricles are normal in size. There is mild mucosal thickening in the ethmoid sinuses. The orbits are normal. The mastoid air cells are normal. IMPRESSION: 1. Normal brain. Reviewed, dictated and finalized at location E. IMPRESSION: 1. Normal brain.
--- NOTE | ~2022-11-16 | US_ITS ---
EXAMINATION: US carotid duplex BI DATE: 11/17/2022 12:03 INDICATION: Carotid bruit TECHNIQUE: Grayscale, color Doppler, and pulsed Doppler images of the cervical carotid arteries were obtained. The degree of vessel stenosis is placed in one of the following categories: normal, <50%, 5 0-69%, >=70% but less than near-occlusion, near-occlusion, or total occlusion. Note that percent sten osis relative to normal distal artery lumen diameter is indirectly measured from velocity measurement s as described by Rocky, et al. Radiology 2003; 229:340-346. COMPARISON: None. FINDINGS: RIGHT: The right common carotid artery (CCA) peak systolic velocity (PSV) is 103 cm/s. The right internal ca rotid artery (ICA) PSV is 99 cm/s. The right ICA end-diastolic velocity (EDV) is 46 cm/s. The right I CA/CCA PSV ratio is 1.0. Grayscale and color Doppler images yield an estimate of <50% diameter reduct ion from plaque in the ICA. The external carotid artery (ECA) PSV is 57 cm/s. There is antegrade flow in the right vertebral artery. LEFT: The left CCA PSV is 109 cm/s. The left ICA PSV is 92 cm/s. The left ICA EDV is 42 cm/s. The left ICA/ CCA PSV ratio is 0.8. Grayscale and color Doppler images yield an estimate of <50% diameter reduction from plaque in the ICA. The ECA PSV is 87 cm/s. There is antegrade flow in the left vertebral artery . IMPRESSION: 1. <50% stenosis in the right internal carotid artery. 2. <50% stenosis in the left internal carotid artery. Reviewed, dictated and finalized at location A.
--- NOTE | ~2022-11-16 | CT_ITS ---
EXAMINATION: CT brain wo con DATE: 11/16/2022 15:23 INDICATION: headache syncope . TECHNIQUE: Computed tomography (CT) of the head was performed without intravenous contrast. The mA wa s adjusted according to patient size. Iterative reconstruction technique was employed. The dose-lengt h product was 605.33 mGy-cm. COMPARISON: 11/01/2022. FINDINGS: No acute intracranial hemorrhage or extra-axial fluid collection. No hydrocephalus, mass, or herniation. No acute ischemic infarct. Unremarkable dural venous sinus attenuation. No acute osseous abnormality. The aerated spaces are clear. IMPRESSION: No acute intracranial process. Reviewed, dictated and finalized at location K.
--- NOTE | ~2022-11-16 | MR_ITS ---
EXAMINATION: MRA brain wo con DATE: 11/17/2022 11:38 INDICATION: Headache. Lower extremity weakness. Slurred speech. Epilepsy. TECHNIQUE: Magnetic resonance angiography (MRA) of the brain was performed without intravenous contra st with T1-weighted SPGR by the 3D [id number] technique. Maximum intensity projection 3D-reconstr uctions were obtained. COMPARISON: Head CTA 11/16/22 FINDINGS: Left vertebral artery is dominant. There is no significant stenosis of basilar artery or the posterio r cerebral arteries. The posterior communicating arteries are normal. There is no significant stenosi s of the intracranial internal carotid arteries or anterior or middle cerebral arteries. Anterior com municating artery is normal. There is no aneurysm. IMPRESSION: 1. Normal MRA. Reviewed, dictated and finalized at location E. IMPRESSION: 1. Normal MRA.
--- NOTE | ~2022-11-16 | XR_ITS ---
EXAMINATION: XR lumbar puncture diagnostic DATE: 11/18/2022 12:25 INDICATION: Abnormal neurologic presentation. Headaches. TECHNIQUE: The procedure including the risks and benefits was discussed with the patient. Risks discu ssed included spinal headache, cerebrospinal fluid leak, bleeding, and infection. The patient underst ood the risks and agreed to proceed. A timeout was performed to verify the patient's name, date of , and procedure to be performed. The skin overlying the L3-L4 level was prepped and draped in usual sterile fashion. Subcutaneous 1% lidocaine was used for local anesthesia. A 22 gauge spinal n eedle was advanced under fluoroscopic guidance utilizing a left paramedian interlaminar approach. The needle was removed and the entry site was cleaned and dressed. There were no immediate complication s. A total of 2 fluoroscopic image(s) were obtained. The amount of fluoroscopy time used during this procedure was 0.2 minutes. There were no immediate complications. FINDINGS: Real-time fluoroscopy demonstrates the needle at the L3-L4 level. Opening pressure was 13 c m water. (Normal range is variably defined as 6-20 cm water and up to 25 cm water in obese patients. Pressure >25 cm water is one of the modified Dandy criteria for idiopathic intracranial hypertension) . 15 mL of clear, colorless fluid was collected in 4 tubes. IMPRESSION: 1. Successful fluoro-guided lumbar puncture with normal opening pressure of 13 cm water. Reviewed, dictated and finalized at location A.
--- NOTE | ~2022-11-16 | MR_ITS ---
EXAMINATION: MR venography brain DATE: 11/17/2022 11:38 INDICATION: Headache. Lower extremity weakness. Slurred speech. Epilepsy. TECHNIQUE: Magnetic resonance venography (MRV) of the brain was performed without intravenous contras t. COMPARISON: Head CTA 11/16/22 FINDINGS: The internal cerebral veins, vein of Sergio, straight sinus, superior sagittal sinus, transv erse sinuses, and oblique sinuses are normal. IMPRESSION: 1. Normal MRV. Reviewed, dictated and finalized at location E. IMPRESSION: 1. Normal MRV.
--- NOTE | ~2022-11-16 | CT_ITS ---
EXAMINATION: CTA brain carotid DATE: 11/16/2022 16:41 INDICATION: headache, TIA TECHNIQUE: Computed tomographic angiography (CTA) of the head was performed without and with 100 mL O mnipaque-350 intravenous contrast. CTA of the neck was performed with intravenous contrast. The dose- length product was 995.11 mGy-cm. Maximum intensity projection and volume rendered 3D-reconstructions were created by the technologist on a separate workstation. COMPARISON: CT brain same date. MRI brain 03/17/2020. FINDINGS: CTA HEAD: No large vessel occlusion, aneurysm, high flow vascular malformation, nidus or extravasation. Persist ent origin of the right DRILL [employer]ESS TENDER, a normal variant. The distal right vertebral artery terminates in the right inferior cerebellar artery, a normal variant. Moderate diffuse narrowing of the distal left vertebral artery, basilar artery, and bilateral posterior cerebral arteries. Mild diffuse narrowing of the arteries in the anterior circulation. Patent cerebral veins. Symmetric parenchymal enhancement . CTA NECK: Aortic arch and proximal great vessels: Normal arch anatomy. Right common carotid, carotid bifurcation, and internal carotid artery: No plaque.There is 0% stenosi s of the proximal right internal carotid artery relative to normal distal artery lumen diameter (NASC ET criteria). Left common carotid, carotid bifurcation, and internal carotid artery: No plaque.There is 0% stenosis of the proximal left internal carotid artery relative to normal distal artery lumen diameter (NASCET criteria). Vertebral arteries: No significant plaque or stenosis. Left vertebral artery is dominant. Other findings: None. IMPRESSION: No large vessel occlusion. No significant carotid or vertebral artery stenosis. Diffuse, mild anterior and moderate posterior intracerebral arterial narrowing, may be normal for thi s patient or reflect a component of vasospasm, such as reversible cerebral vasoconstriction syndrome. Reviewed, dictated and finalized at location K. IMPRESSION: No large vessel occlusion. No significant carotid or vertebral artery stenosis. Diffuse, mild anterior and moderate posterior intracerebral arterial narrowing, may be normal for this patient or reflect a component of vasospasm, such as re versible cerebral vasoconstriction syndrome.
--- NOTE | 2022-11-16 15:52 | ECG_ITS ---
Measurements Intervals [place] Rate: 60 P: 47 ND: 167 QRS: 57 QRSD: 88 T: 39 QT: 378 QTc: 378 Interpretive Statements SINUS RHYTHM NORMAL ECG COMPARED TO ECG 02/11/2021 16:46:30 NO SIGNIFICANT CHANGES Electronically Signed On 11-16-2022 16:52:38 CDT by Mani Meyer D.O.
[2022-11-16 16:11] LABS: Basophils Percent Auto 0.4 % (0.2-1.2); Eosinophils Absolute Auto 0.1 K/mm3 (0-0.3); Eosinophils Percent Auto 0.7 % (0-4.4); Hematocrit 36.5 % (37.0-47.0); Hemoglobin 12.4 g/dL (12.0-15.0); Immature Granulocyte Absolute 0.01 K/mm3 (0.00-0.031); Immature Granulocyte Percent A 0.1 % (0-0.5); Lymphocytes Absolute Auto 1.55 K/mm3 (0.9-3.2); Lymphocytes Percent Auto 20.5 % (18.3-44.2); Mean Corpuscular Volume 94.1 fl (80-100); Monocytes Absolute Auto 0.7 K/mm3 (0.1-0.6); Neutrophils Absolute Auto 5.2 K/mm3 (1.3-6.7); Neutrophils Percent Auto 69.3 % (45.5-73.1); Platelet Count Result 187 k/mm3 (150-375); Red Blood Count 3.88 M/mm3 (4.2-5.4); Red Cell Distribution Width 11.7 % (11.5-14.5); White Blood Count 7.6 K/mm3 (4.5-10.0)
--- NOTE | 2022-11-16 16:12 | ED.GENADULT ---
HPI - General Adult General Chief complaint: Headache Stated complaint: via EMS with slurred speech and HASTINGS at 1330 Time Seen by Provider: 11/16/22 15:36 History of Present Illness HPI narrative: 42-year-old female with history of migraines presented the ED for evaluation after having a near syncopal episode associated with headache and left leg weakness. Patient states she does have history of empty sella syndrome and is following up with Dr. Mccann to have an MRA and MRV. Patient states that today she had some mild confusion and had some lightheaded and dizziness. 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 Patient was walking to the bathroom when she had an episode of near syncope and someone caught her and sat her on a chair. EMS was called. When patient attempted to walk to the cot she had weakness of the left leg. Upon arrival to the ED patient states that all numbness and weakness has resolved. Patient does still have a headache Related Data Allergies Allergy/AdvReac Type Severity Reaction Status Date / Time tizanidine [From Zanaflex] Allergy Mild Unknown-RECEIVED Verified 11/16/22 14:54 AN SMALL CHILD phenobarbital Allergy Unknown-RECEIVED Verified 11/16/22 14:54 A SMALL CHILD Review of Systems Review of Systems: All systems reviewed & are unremarkable except as noted in HPI and below PMFSH Past Medical History Medical History Depression Empty sella syndrome Epilepsy History of COVID-19 Surgical History Surgical History H/O section H/O: hysterectomy (~2008) Hx of appendectomy (~2019) Family History Family History Father Diabetes mellitus Hypertension Mother COPD (chronic obstructive pulmonary disease) Congestive heart failure Eczema Social History Social History (Updated 11/09/22 @ 15:52 by LINA Landis) Smoking status: Never smoker Second hand tobacco smoke exposure: No Alcohol intake: current Substance use: current Substance use type: marijuana Other substance usage details: smoking daily and edibles occasionally Lack of Transportation: No Lack of Food: Sometimes True Current Housing: I Have Housing Concerned About Future Housing: No Difficulty Paying Gas/Electric Bills: No Difficulty Paying for Meds: No Currently Unemployed: No Education: Decline to Answer Difficulty w/ Childcare or Family Care: No Living arrangements: with family Occupation/Education: occupation Gender identity (if verbalized by the patient): Female Sexual Orientation (if Verbalized by the Patient): Straight or Heterosexual Exam Narrative: APPEARANCE: Well appearing, no pain, no distress, well-nourished. HEAD: normocephalic, atraumatic. EYES: PERRLA/EOMI, conjunctivae clear. NOSE: Normal no drainage NECK: Supple. No adenopathy, no masses. RESPIRATORY: Airway patent, respirations nonlabored. Clear to auscultation bilaterally, no rales, rhonchi, wheezing. CARDIOVASCULAR: Regular rate and rhythm without murmurs rubs or gallops. ABDOMINAL: Soft, nontender, nondistended, normal bowel sounds MUSCULOSKELETAL: Moves all extremities. Strength/ROM intact, No edema, No calf tenderness. NEURO: Alert. Cranial nerves II through XII intact. No pronator drift no ataxia normal strength reflexes normal Romberg normal forward and backward tandem gait, no visual field deficit SKIN: Warm, dry. Normal Color Course Course Emergency Course: 42-year-old female presented to ED for evaluation after having a near syncopal episode and associated headache and left leg weakness. Head CT was negative. CTA brain with acute showed possible vasoconstrictive syndrome. Patient does feel back to her baseline and
[2022-11-16 16:20] LABS: Alanine Aminotransferase 13 U/L (6-35); Albumin Level 4.1 g/dL (3.5-5.1); Alkaline Phosphatase 46 U/L (38-126); Anion Gap 6 mmol/L (8-16); Aspartate Amino Transferase 20 U/L (14-36); Bilirubin,Total 0.6 mg/dL (0.2-1.3); Blood Urea Nitrogen 11 mg/dL (7-17); Calcium 8.8 mg/dL (8.4-10.2); Carbon Dioxide 27 mmol/L (22-30); Chloride 104 mmol/L (98-107); Estimated CRCL calculation 79 ml/min; Estimated Glomerular Filt Rate > 60; Glucose 87 mg/dL (65-110); Magnesium 1.9 mg/dL (1.6-2.3); Potassium 3.3 mmol/L (3.4-5.0); Sodium 137 mmol/L (137-145)
[2022-11-16] MEDS: SODIUM CHLORIDE 0.9% IV 1,000 ML 999 ML IV CONT (16:20)
[2022-11-16] MEDS: PROCHLORPERAZINE EDISYLATE 10 MG/2 ML VIAL IM (16:21)
[2022-11-16] MEDS: diphenhydrAMINE HCl INJ 50 MG/ML VIAL 25 MG IV PUSH (16:21)
[2022-11-16 16:24] LABS: INR 1.1; Prothrombin Time 14.4 Seconds (11.1-14.7)
[2022-11-16] MEDS: KETOROLAC 15 MG/ML VIAL (*BKC) IV PUSH ×2 (17:45→22:56)
--- NOTE | 2022-11-16 19:33 | ADMGEN ---
This patient, Jamila Jeff, was admitted to [facility] Room 311-01. Patient/family oriented to hospital policies and general routines including ID bracelet, bed and alarms, visiting hours, pain management, procedures, bathroom and other care routines, personal items, smoking policy, room service/diet, and visiting hours. Information on how to activate the Rapid Response Team has been discussed. Patient/Family are encouraged to report perceived risks to care and to ask questions if they do not understand what they are told or what they should do.
--- NOTE | 2022-11-16 21:24 | PM.IMHP ---
H&P: HPI History of Present Illness Date/Time: 11/16/22 20:45 Chief Complaint: Headache slurred speech, left leg weakness. Narrative: This is a very pleasant 42-year-old female with epilepsy, empty sella syndrome, migraine headaches, and anxiety who presented to the emergency department via EMS from her place of employment for evaluation of a headache, slurred speech, and left leg weakness. The patient provides the following history. She reports daily headaches for the last 3 weeks and describes a constant throbbing pain in the back of the head down to the base of the neck. Associated symptoms include sensitivity to light, small, and taste as well as nausea and occasional vomiting. She has been taking Excedrin migraine which does help take the edge off. She saw Dr. Mccann in the office sometime last week and was prescribed Imitrex though she has not yet had time to get that filled. She is supposed to have an upcoming MRA and MRV for further evaluation. Today at work she had a series of events which led her to the ED. 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 She then started to feel strange, similar to when she has had or is with her seizures though she has not had 1 for quite some time. She reports a warm feeling with cold and clammy hands, nausea, and lightheadedness. She sat down ultimately had to go to the bathroom as she was so nauseated. While in the bathroom she developed weakness and heaviness in her left leg and slurred speech and a co-worker called 911. She was unable to walk to the EMS cot and she reports that her left leg would not do what she wanted it to do. Her symptoms seem to have improved and resolved by the time she got to the ED however she continues to have a headache. She has had similar symptoms aside from the slurred speech and left leg weakness which she has always attributed to anxiety. On exam today she has a murmur heard throughout the precordium but loudest at the apex. 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 With further questioning she does endorse occasional episodes of lightheadedness and near-syncope, exertional shortness of breath, occasional exertional chest discomfort, and intermittent but brief in self-limiting episodes of fluttering in the chest. Vital signs were stable on arrival. CMP and CBC were unremarkable aside from a potassium of 3.3. Brain CT showed no acute intracranial process. CT of the head and neck showed no large vessel occlusion or significant carotid or vertebral artery stenosis. Diffuse, mild anterior moderate posterior intracerebral arterial narrowing was noted which may be normal for the patient or reflect a component of vasospasm. Review of Systems Review of Systems: Twelve systems were reviewed and are negative except for as per HPI. [facility] Past Medical History Medical History (Updated 11/17/22 @ 16:04 by Cristina Martini PA-C) Anxiety Depression Empty sella syndrome Epilepsy History of COVID-19 Surgical History Surgical History (Updated 11/17/22 @ 15:58 by Cristina Martini PA-C) History of appendectomy (2018) History of section History of hysterectomy (2008) Family History Family History (Updated 11/17/22 @ 16:08 by Cristina Martini PA-C) Father Diabetes mellitus Hypertension Mother COPD (chronic obstructive pulmonary disease) Congestive heart failure Eczema Son Ventricular septal defect Social History Social History (Updated 11/17/22 @ 15:58 by Cristina Martini PA-C) Social History: Code status: Full code. Smoking status: Never smoker Second hand tobacco smoke exposure: No Alcohol intake: never Substance use: current Substance use type: marijuana Other substance usage details: smoking daily and edibles occasionally
[2022-11-16] MEDS: LORazepam (*CRX) 1 MG TABLET PO (22:57)
[2022-11-16] MEDS: lamoTRIgine 100 MG TABLET 200 MG PO (22:57)
[2022-11-16] MEDS: levETIRAcetam 500 MG TABLET 1000 MG PO (22:57)
[2022-11-17] VITALS (7 sets, daily range): BP systolic 116–150; BP diastolic 56–80; PULSE 57–78; RESP 12–18; TEMP 36.4–36.8; O2SAT 97–100
--- NOTE | 2022-11-17 | ECHO_ITS ---
Patient Info Name: Jamila Jeff Age: 42 years : 1980 Gender: Female Ht: 64 in Wt: 157 lbs BSA: 1.81 m2 HR: 62 bpm BP: 150 / 80 mmHg Heart Rhythm: Sinus Rhythm Technical Quality: Good Exam Date: 11/17/2022 4:40 PM Exam Location: [facility] Pulmonary Patient Status: Inpatient Admit Date: 11/16/2022 Staff Ordering Physician: Tommie Hook APRN Wig Comber: Pastora Cabrera RDCS Attending Provider: Ramiro Phillips MD Referring Physician: Monster MACEDO; Exam Type: CA echo limited w bubble study Study Info Indications - loud murmur, neurologic dysfunction Limited two-dimensional transthoracic echocardiogram is performed with agitated saline. Contrast/Agitated Saline Contrast/Ag. Saline: Agitated Saline Amount: 20.00 ml Administered By: Pastora Cabrera RDCS Existing IV Access: Yes IV Access Condition: patent with no signs of infiltration Summary 1. This was a limited study for bubble study. 2. Suspected patent foramen ovale by agitated saline imaging. There is a small right to left shunt. Atrial Septum Suspected patent foramen ovale by agitated saline imaging. There is a small right to left shunt. Report Signatures
--- NOTE | 2022-11-17 | ECHO_ITS ---
Patient Info Name: Jamila Jeff Age: 42 years : 1980 Gender: Female Ht: 64 in Wt: 155 lbs BSA: 1.80 m2 HR: 58 bpm Heart Rhythm: Sinus Rhythm Technical Quality: Good Exam Date: 11/17/2022 9:24 AM Exam Location: [facility] Pulmonary Patient Status: Inpatient Admit Date: 11/16/2022 Staff Ordering Physician: Cristina Martini PA-C Attending Provider: Ramiro Phillips MD Referring Physician: Vini LAST; Exam Type: CA echo doppler color flow Study Info Indications - murmur Complete two-dimensional, color flow and Doppler transthoracic echocardiogram is performed. Summary 1. Complete two-dimensional, color flow and Doppler transthoracic echocardiogram is performed. 2. Left ventricular chamber dimension is normal. 3. Left ventricular systolic function is normal, estimated at 60-65%. 4. Right ventricular systolic function is normal. 5. No significant valvular disease. Left Ventricle Left ventricular chamber dimension is normal. Left ventricular systolic function is normal, estimated at 60-65%. There is no increased left ventricular wall thickness. Right Ventricle Right ventricular chamber dimension is normal. Right ventricular systolic function is normal. Left Atria Left atrial chamber dimension is normal. Right Atria Right atrial chamber dimension is normal. Atrial Septum Intact interatrial septum visualized by color flow imaging. Aortic Valve The aortic valve is trileaflet. There is no aortic valve stenosis. There is no aortic valve regurgitation. Pulmonic Valve The pulmonic valve is not well visualized. There is no pulmonic regurgitation. Mitral Valve There is trace mitral valve regurgitation. Tricuspid Valve There is trace tricuspid valve regurgitation. Pericardium/Pleural There is no pericardial effusion. Inferior Vena Cava Normal inferior vena cava with >50% collapse upon inspiration consistent with normal right atrial pressure, 3 mmHg. Aorta The aortic root size at the sinus of Valsalva is normal. Left Ventricular Outflow Tract Name Value Normal LVOT 2D LVOT Diameter 1.7 cm LVOT Doppler LVOT Peak Gradient 12 mmHg LVOT Mean Gradient 6 mmHg LVOT VTI 42 cm LVOT VTI/AV VTI Ratio 0.9 LVOT Stroke Volume 94 ml LVOT CO 15.3 l/min LVOT CI 8.5 l/min/m2 Pulmonic Valve Name Value Normal RVOT Doppler RVOT Peak Gradient 3 mmHg PV Doppler PV Peak Gradient 5 mmHg Mitral Valve Name Value Normal MV Regurgitation Doppler
[2022-11-17] MEDS: POTASSIUM CHLORIDE 20 MEQ ER TABLET PO (00:40)
[2022-11-17 00:48] LABS: Anion Gap 3 mmol/L (8-16); Blood Urea Nitrogen 10 mg/dL (7-17); Calcium 8.2 mg/dL (8.4-10.2); Carbon Dioxide 25 mmol/L (22-30); Chloride 109 mmol/L (98-107); Estimated CRCL calculation 88 ml/min; Estimated Glomerular Filt Rate > 60; Glucose 96 mg/dL (65-110); Potassium 3.3 mmol/L (3.4-5.0); Sodium 137 mmol/L (137-145)
[2022-11-17] MEDS: lamoTRIgine 100 MG TABLET PO ×2 (09:00→16:38)
[2022-11-17] MEDS: levETIRAcetam 500 MG TABLET 1000 MG PO ×2 (09:00→16:38)
[2022-11-17] MEDS: KETOROLAC 15 MG/ML VIAL (*BKC) IV PUSH ×2 (09:01→18:53)
--- NOTE | 2022-11-17 14:33 | WPDNEURCNPN ---
Assessment and Plan Assessment and plan (1) Murmur: Code(s): R01.1 - Cardiac murmur, unspecified Status: Acute (2) Migraine headache: Code(s): G43.909 - Migraine, unspecified, not intractable, without status migrainosus Status: Acute (3) Empty sella syndrome: Code(s): E23.6 - Other disorders of pituitary gland Status: Acute (4) Epilepsy: Qualifiers: Epilepsy type: unspecified Intractability: not intractable Status epilepticus: without status epilepticus Qualified Code(s): G40.909 - Epilepsy, unspecified, not intractable, without status epilepticus Code(s): G40.909 - Epilepsy, unspecified, not intractable, without status epilepticus Status: Acute Plan 1 migraine 2 history of epilepsy 3 question regarding empty sella syndrome and pseudotumor cerebri for which MRI a MRI and MRV have been ordered 4 cardiac murmur plan as being carried out Consult date: 11/17/22 HPI: Jamila Jeff is a 42 year old female admitted to the hospital through the emergency room where she was brought with complaints of headaches along with slurred speech and near syncopal episode but additionally complained of left lower extremity weakness patient reported to the ER physician that she has ongoing diagnosis of empty sella syndrome and is being followed by the neurologist has to have MRA and MRV as well on the day of admission to the ER she was complaining of increasing confusion increasing dizziness she works at a [employer] she was walking to the bathroom when she had an episode of near-syncope and sat on a chair when EMS were called to the scene and she was brought to the hospital. She has been allergic to tizanidine and phenobarbital and also carries the diagnosis of as mentioned above empty sella syndrome, depression, epilepsy, and history of covid19 in the past, she does drink alcohol currently but never smoker initial exam in the ER was nonfocal neurological he had normal routine lab except potassium 3.3 CT scan of the head was negative,EKG was normal with no atrial fibrillation, CTA documented no aneurysm or vascular malformation did have normal variant of distal right vertebral artery terminating in the right inferior cerebellar artery with moderate diffuse narrowing in the distal left vertebral artery, basilar artery, and bilateral posterior cerebral arteries and mild diffuse narrowing of the artery and anterior circulation with patent cerebral veins. At this stage echocardiogram is pending [facility] Past Medical History Medical History Depression Empty sella syndrome Epilepsy History of COVID-19 Surgical History Surgical History H/O section H/O: hysterectomy (~2009) Hx of appendectomy (~2019) Family History Family History Father Diabetes mellitus Hypertension Mother COPD (chronic obstructive pulmonary disease) Congestive heart failure Eczema Social History Social History (Updated 11/09/22 @ 15:52 by LINA Landis) Smoking status: Never smoker Second hand tobacco smoke exposure: No Alcohol intake: never Substance use: current Substance use type: marijuana Other substance usage details: smoking daily and edibles occasionally Last use: 11/16/2022 Lack of Transportation: No Lack of Food: Never True Current Housing: I Have Housing Concerned About Future Housing: No Difficulty Paying Gas/Electric Bills: No Difficulty Paying for Meds: No Currently Unemployed: No Education: Bachelor's Degree Difficulty w/ Childcare or Family Care: No Living arrangements: with family Occupation/Education: occupation Gender identity (if verbalized by the patient): Female Sexual Orientation (if Verbalized by the Patient): Straight or Heterosexual Spiritual care concerns:
--- NOTE | 2022-11-17 14:53 | PM.IMPN ---
Progress Note: A&P Assessment and Plan (1) Migraine headache: Code(s): G43.909 - Migraine, unspecified, not intractable, without status migrainosus Status: Acute Assessment and Plan: Ketorolac q6h prn as this has helped her pain, LP for opening pressure and CSF testing (2) Left leg weakness: Code(s): R29.898 - Other symptoms and signs involving the musculoskeletal system Status: Acute Assessment and Plan: Resolved, MRI, MRA, MRV do not explain event (3) Murmur: Code(s): R01.1 - Cardiac murmur, unspecified Status: Acute Assessment and Plan: Echo pending (4) Epilepsy: Qualifiers: Epilepsy type: unspecified Intractability: not intractable Status epilepticus: without status epilepticus Qualified Code(s): G40.909 - Epilepsy, unspecified, not intractable, without status epilepticus Code(s): G40.909 - Epilepsy, unspecified, not intractable, without status epilepticus Status: Acute Assessment and Plan: Remote history--on [facility], obtain EEG (5) Abnormal brain CT: Code(s): R90.89 - Other abnormal findings on diagnostic imaging of central nervous system Status: Acute Assessment and Plan: Empty sella syndrome on brain CT, MRI MRA MRV unremarkable and do not explain patient's presenting problems (6) Hypokalemia: Code(s): E87.6 - Hypokalemia Status: Acute Assessment and Plan: Potassium 3.3, oral replacement ordered, daily labs Plan MRA MRV the MRI are unremarkable. Ordered lumbar puncture with opening pressure and CSF testing, assess for idiopathic intracranial hypertension/pseudotumor cerebri Time Spent With Patient Time with patient: Greater than 35 minutes Subjective Date/time seen: 11/17/22 14:53 Interval history: This is a 42-year-old female patient with past history of seizures and migraine who has been dealing with recurrent migraine headaches for the past 3 weeks all on the left side of the head. She also had an episode confusion while at work and left leg weakness will attempting to ambulate to EMS stretcher. No recent seizure activity reported per patient. She was previously prescribed Imitrex for her headache but did not get that started or try it yet. Toradol has helped with her headache pain while in the hospital. Neurology consulted, appreciate recommendations. Review of Systems Review of Systems: Twelve systems were reviewed and are negative except for as per HPI. Exam Narrative: General: Well-developed female sitting up in bed in no acute distress. HEENT: Normocephalic, atraumatic. PERRL, EOMI. Sclera anicteric. Oral mucosa moist. Oropharynx clear. Neck: Supple. No obvious thyromegaly. Respiratory: Lungs are clear to auscultation bilaterally. Cardiovascular: Regular rate and rhythm with S1-S2. Systolic murmur heard throughout the precordium but loudest at the apex. Gastrointestinal: Abdomen is soft, nontender, and nondistended with positive bowel sounds. Skin: Warm and dry. Extremities: No cyanosis, clubbing, or edema. Radial and pedal pulses intact. Neurological: Alert and oriented. Cranial nerves 2-12 are grossly intact. Speech is clear. No facial asymmetry. No pronator drift. Normal ajeyaf-yb-ounm and rapid alternating movements. Normal strength and sensation throughout. Psychiatric: Anxious affect, dysthymic mood. Judgment and insight intact. Objective Data Vital Signs Vital Signs: Vital Signs - 24 hr 11/16/22 15:01 11/16/22 15:30 11/16/22 15:29 Temperature 37.0 C 36.6 C Pulse Rate 76 67 70 Respiratory Rate 16 15 13 Blood Pressure 106/49 L 120/72 Pulse Oximetry 100 100 99 Oxygen Delivery Room Air Room Air 11/16/22 15:30 11/16/22 15:31 11/16/22 15:45 Temperature Pulse Rate 68 70 65 Respiratory Rate 14 15 14 Blood Pressure 120/72 Pulse Oximetry 100 100 100 Oxygen Delivery 11/16/22 15:46 11/16/22 16:00 11/16/22 16:01 [place]
[2022-11-17] MEDS: POTASSIUM CHLORIDE 20 MEQ ER TABLET 40 MEQ PO (16:38)
[2022-11-17] MEDS: ONDANSETRON INJ 4 MG/2 ML VIAL IV PUSH (18:53)
[2022-11-17] MEDS: lamoTRIgine 100 MG TABLET 200 MG PO (20:17)
[2022-11-17] MEDS: LORazepam (*CRX) 1 MG TABLET PO (20:20)
[2022-11-18] VITALS (9 sets, daily range): BP systolic 106–121; BP diastolic 59–76; PULSE 61–91; RESP 13–20; TEMP 36.4–37.1; O2SAT 96–99
[2022-11-18] MEDS: KETOROLAC 15 MG/ML VIAL (*BKC) IV PUSH (04:31)
[2022-11-18 06:29] LABS: Basophils Percent Auto 0.6 % (0.2-1.2); Eosinophils Absolute Auto 0.1 K/mm3 (0-0.3); Eosinophils Percent Auto 1.5 % (0-4.4); Hematocrit 36.8 % (37.0-47.0); Hemoglobin 12.4 g/dL (12.0-15.0); Immature Granulocyte Absolute 0.01 K/mm3 (0.00-0.031); Immature Granulocyte Percent A 0.2 % (0-0.5); Lymphocytes Absolute Auto 1.56 K/mm3 (0.9-3.2); Lymphocytes Percent Auto 29.7 % (18.3-44.2); Mean Corpuscular HGB Conc 33.7 g/dl (32-36); Mean Corpuscular Hemoglobin 31.7 pg (26-34); Mean Corpuscular Volume 94.1 fl (80-100); Mean Platelet Volume 10.3 fl (7.4-10.4); Monocytes Absolute Auto 0.4 K/mm3 (0.1-0.6); Monocytes Percent Auto 7.6 % (2.6-8.5); Neutrophils Absolute Auto 3.2 K/mm3 (1.3-6.7); Neutrophils Percent Auto 60.4 % (45.5-73.1); Platelet Count Result 185 k/mm3 (150-375); Red Blood Count 3.91 M/mm3 (4.2-5.4); Red Cell Distribution Width 11.5 % (11.5-14.5); White Blood Count 5.3 K/mm3 (4.5-10.0)
[2022-11-18 06:40] LABS: Alanine Aminotransferase 13 U/L (6-35); Anion Gap 4 mmol/L (8-16); Aspartate Amino Transferase 22 U/L (14-36); Bilirubin,Total 0.5 mg/dL (0.2-1.3); Blood Urea Nitrogen 10 mg/dL (7-17); Calcium 8.6 mg/dL (8.4-10.2); Carbon Dioxide 25 mmol/L (22-30); Chloride 107 mmol/L (98-107); Estimated CRCL calculation 78 ml/min; Estimated Glomerular Filt Rate > 60; Glucose 95 mg/dL (65-110); Potassium 3.8 mmol/L (3.4-5.0); Sodium 136 mmol/L (137-145)
[2022-11-18 06:41] LABS: Albumin Level 3.8 g/dL (3.5-5.1); Alkaline Phosphatase 44 U/L (38-126)
[2022-11-18] MEDS: levETIRAcetam 500 MG TABLET 1000 MG PO ×2 (08:13→16:05)
[2022-11-18] MEDS: LORazepam (*CRX) 1 MG TABLET PO ×2 (08:13→15:55)
[2022-11-18] MEDS: lamoTRIgine 100 MG TABLET PO ×2 (08:13→16:05)
[2022-11-18] MEDS: SUMAtriptan SUCCINATE 6 MG/0.5 ML VIAL SUB-Q (08:38)
--- NOTE | 2022-11-18 10:05 | WPDNEUROPN ---
Progress Note: A&P Assessment and Plan (1) Syncope: Code(s): R55 - Syncope and collapse Status: Acute (2) Left leg weakness: Code(s): R29.898 - Other symptoms and signs involving the musculoskeletal system Status: Acute (3) Headache: Code(s): R51.9 - Headache, unspecified Status: Acute (4) Empty sella syndrome: Code(s): E23.6 - Other disorders of pituitary gland Status: Acute (5) Epilepsy: Qualifiers: Epilepsy type: unspecified Intractability: not intractable Status epilepticus: without status epilepticus Qualified Code(s): G40.909 - Epilepsy, unspecified, not intractable, without status epilepticus Code(s): G40.909 - Epilepsy, unspecified, not intractable, without status epilepticus Status: Acute Plan Ms. Jeff is a 42 year old female with a history of epilepsy and headaches currently admitted for worsening headaches and focal neurological symptoms. Patient reports a history of prior empty sella syndrome . Her MRI and MRV of the brain during this admission are normal. Given this prior history, we will still need to rule out the possibility of IIH so LP for opening pressure will be necessary. If that is normal, these are likely migraines and will be treated as such. - LP with opening pressure follwed by blood patch - Can give IV Valproic acid 500mg PRN BID for migraines while hospitalized - If opening pressure is normal, recommend starting Topamax 25mg BID for migraine prevention. I had also recommended that she take Imitrex 50mg as needed at onset of migraine - If opening pressure is elevated, will need to start Diamox. Subjective Date/time seen: 11/18/22 10:05 Interval history: Ms. Jeff is a 42 year old female with a history of epilepsy and headaches currently admitted for worsening headaches and focal neurological symptoms. Patient was recently evaluated by me in Neurology clinic earlier this month. At that time she reported that her headaches are worsening and that she has a history of empty sella syndrome . She had a MRI brain and opening pressure done in 2020 that were both normal. She takes Keppra 500mg BID for her epilepsy. Patient reports dull headache, that has gotten worse since this past summer. The headache is pounding. She went to the ER recently. She feels that her concentration and focus are worse. She feels that her speech and coordination have gotten worse. Her headache has been throbbing from the back of the head to her neck. She takes Benadryl and Excedrin which will dull the pain. She feels that her vision has gotten worse. She is having to use a magnifying glass to see things at work. She has lost weight recently. She has not had a dilated eye exam since her headaches have worsened. With the headaches she has photophobia, phonophobia, nausea, vomiting. She has a history of migraines. She has previously taken Ubrelvy. She has never taken Imitrex or sumatriptan. She does not have a history of IIH or papilledema as far as she knows. She has not had a seizure in over a year. She takes Keppra 500mg BID and Lamictal 100mg in the morning and 300mg qhs. No concerns regarding her seizures. She presented to [facility] ED due to worsening of the headache on the left side of head. She also complained of left leg weakness and a presyncopal episode while at work. She had an MRI brain and MRV brain done already during this admission that were both normal. CTA brain showed diffuse, mold anterior and moderate posterior intracerebral arterial narrowing (either normal for patient or vasospasm related). However MRA of the brain was normal. She has been getting Toradol PRN while she has been hospitalized which does seem to help. Patient is very anxious. She received Imitrex 6mg subcutaneous this morning which did help somewhat. Review of Systems Constitutional: Constitutional: Denies chills, Denies fever(s) and Denies weight loss Eyes: Eyes: Denies diplopia and D
[2022-11-18] MEDS: ONDANSETRON INJ 4 MG/2 ML VIAL IV PUSH (12:19)
[2022-11-18 12:28] LABS: Glucose CSF 55 mg/dL (40-70); Total Protein CSF 48 mg/dL (12-60)
[2022-11-18 12:50] LABS: Appearance CSF Clear (Clear); CSF source CSF; Color CSF Colorless (Colorless); Nucleated Cell CSF 2 /uL (0-5); Red Blood Cell CSF 1 (0-2)
[2022-11-18 12:53] LABS: Lymphocytes CSF 100 % (40-80)
--- NOTE | 2022-11-18 14:02 | PM.IMPN ---
Progress Note: A&P Assessment and Plan (1) Migraine headache: Code(s): G43.909 - Migraine, unspecified, not intractable, without status migrainosus Status: Acute Assessment and Plan: Ketorolac q6h prn as this has helped her pain LP with opening pressure 13, CSF studies pending (2) Left leg weakness: Code(s): R29.898 - Other symptoms and signs involving the musculoskeletal system Status: Acute Assessment and Plan: Resolved, MRI, MRA, MRV do not explain event (3) Murmur: Code(s): R01.1 - Cardiac murmur, unspecified Status: Acute Assessment and Plan: Echo pending (4) Epilepsy: Qualifiers: Epilepsy type: unspecified Intractability: not intractable Status epilepticus: without status epilepticus Qualified Code(s): G40.909 - Epilepsy, unspecified, not intractable, without status epilepticus Code(s): G40.909 - Epilepsy, unspecified, not intractable, without status epilepticus Status: Acute Assessment and Plan: Remote history--on [facility], obtain EEG (5) Abnormal brain CT: Code(s): R90.89 - Other abnormal findings on diagnostic imaging of central nervous system Status: Acute Assessment and Plan: Empty sella syndrome on prior brain CT, MRI MRA MRV unremarkable and do not explain patient's presenting problems (6) Hypokalemia: Code(s): E87.6 - Hypokalemia Status: Acute Assessment and Plan: Improved, trend daily labs Plan Workup including lumbar puncture opening pressure are unremarkable, CSF studies pending. Seen by Neurology, treat as migraine headache Per neurology recommendations ordered Depakote 500 mg b.i.d. IV p.r.n. for migraine as well as p.r.n. IV Benadryl IV Compazine ordered for breakthrough nausea and vomiting and RN instructed to delete this and administer very slowly Time Spent With Patient Time with patient: 25 - 35 minutes Subjective Date/time seen: 11/18/22 14:02 Interval history: Patient still complaining of significant left-sided headache had receive Imitrex subcu. EEG obtained, MRI MRA MRV are unremarkable. Initial echocardiogram unremarkable bubble study added. Lumbar puncture obtained with an opening pressure of 13. Will continue to treat as complex migraine. Review of Systems Review of Systems: Twelve systems were reviewed and are negative except for as per HPI. Exam Narrative: General: Well-developed female sitting up in bed in no acute distress. HEENT: Normocephalic, atraumatic. PERRL, EOMI. Sclera anicteric. Oral mucosa moist. Oropharynx clear. Neck: Supple. No obvious thyromegaly. Respiratory: Lungs are clear to auscultation bilaterally. Cardiovascular: Regular rate and rhythm with S1-S2. Systolic murmur heard throughout the precordium but loudest at the apex. Gastrointestinal: Abdomen is soft, nontender, and nondistended with positive bowel sounds. Skin: Warm and dry. Extremities: No cyanosis, clubbing, or edema. Radial and pedal pulses intact. Neurological: Alert and oriented. Cranial nerves 2-12 are grossly intact. Speech is clear. No facial asymmetry. No pronator drift. Normal rgavdt-qj-leny and rapid alternating movements. Normal strength and sensation throughout. Psychiatric: Anxious affect, dysthymic mood. Judgment and insight intact. Objective Data Vital Signs Vital Signs: Vital Signs - 24 hr 11/17/22 20:31 11/17/22 20:20 11/18/22 00:00 Temperature 36.8 C Pulse Rate 65 57 L 61 Respiratory Rate 18 Blood Pressure 124/56 L Pulse Oximetry 98 Oxygen Delivery 11/18/22 04:00 11/18/22 05:16 11/18/22 08:00 Temperature 36.4 C L Pulse Rate 73 75 Respiratory Rate 18 Blood Pressure 119/60 Pulse Oximetry 99 Oxygen Delivery Room Air 11/18/22 12:22 11/18/22 12:23 11/18/22 08:00 Temperature Pulse Rate 80 64 91 Respiratory Rate 16 20 Blood Pressure 121/76 111/63 Pulse Oximetry 98 98 Oxygen Delivery
[2022-11-18] MEDS: LACTATED RINGERS 1,000 ML 100 ML IV CONT (15:51)
[2022-11-18] MEDS: diphenhydrAMINE HCl INJ 50 MG/ML VIAL 25 MG IV PUSH (15:52)
[2022-11-18] MEDS: PROCHLORPERAZINE EDISYLATE 10 MG/2 ML VIAL IV PUSH (15:52)
[2022-11-18] MEDS: lamoTRIgine 100 MG TABLET 200 MG PO (21:24)
[2022-11-19] MEDS: LACTATED RINGERS 1,000 ML 100 ML IV CONT (02:22)
[2022-11-19] MEDS: KETOROLAC 15 MG/ML VIAL (*BKC) IV PUSH (02:28)
[2022-11-19 05:36] VITALS: BP 103/54; PULSE 70; RESP 13; TEMP 36.7; O2SAT 100
[2022-11-19 06:23] LABS: Basophils Absolute Auto 0.1 K/mm3 (0.0-0.1); Basophils Percent Auto 0.9 % (0.2-1.2); Eosinophils Absolute Auto 0.1 K/mm3 (0-0.3); Eosinophils Percent Auto 1.6 % (0-4.4); Hematocrit 37.1 % (37.0-47.0); Hemoglobin 12.4 g/dL (12.0-15.0); Immature Granulocyte Absolute 0.01 K/mm3 (0.00-0.031); Immature Granulocyte Percent A 0.2 % (0-0.5); Lymphocytes Absolute Auto 1.77 K/mm3 (0.9-3.2); Lymphocytes Percent Auto 31.8 % (18.3-44.2); Mean Corpuscular HGB Conc 33.4 g/dl (32-36); Mean Corpuscular Hemoglobin 31.7 pg (26-34); Mean Corpuscular Volume 94.9 fl (80-100); Mean Platelet Volume 10.1 fl (7.4-10.4); Monocytes Absolute Auto 0.5 K/mm3 (0.1-0.6); Monocytes Percent Auto 9.7 % (2.6-8.5); Neutrophils Absolute Auto 3.1 K/mm3 (1.3-6.7); Neutrophils Percent Auto 55.8 % (45.5-73.1); Platelet Count Result 170 k/mm3 (150-375); Red Blood Count 3.91 M/mm3 (4.2-5.4); Red Cell Distribution Width 11.6 % (11.5-14.5); White Blood Count 5.6 K/mm3 (4.5-10.0)
[2022-11-19 06:34] LABS: Alanine Aminotransferase 13 U/L (6-35); Albumin Level 3.7 g/dL (3.5-5.1); Alkaline Phosphatase 40 U/L (38-126); Anion Gap 2 mmol/L (8-16); Aspartate Amino Transferase 23 U/L (14-36); Bilirubin,Total 0.6 mg/dL (0.2-1.3); Blood Urea Nitrogen 11 mg/dL (7-17); Calcium 8.3 mg/dL (8.4-10.2); Carbon Dioxide 28 mmol/L (22-30); Chloride 107 mmol/L (98-107); Estimated CRCL calculation 78 ml/min; Estimated Glomerular Filt Rate > 60; Glucose 90 mg/dL (65-110); Potassium 3.9 mmol/L (3.4-5.0); Sodium 137 mmol/L (137-145)
[2022-11-19] MEDS: levETIRAcetam 500 MG TABLET 1000 MG PO (08:17)
[2022-11-19] MEDS: lamoTRIgine 100 MG TABLET PO (08:17)
[2022-11-19] MEDS: VALPROIC ACID INJ 500 MG in DEXTROSE 5% 100 ML 100 MG IVPB (08:17)
[2022-11-19] MEDS: LORazepam (*CRX) 1 MG TABLET PO (08:17)
--- NOTE | 2022-11-19 11:00 | WPDNEUROLOGY ---
Neurology EEG Report General Information Date of Study: 11/18/22 TEST Routine EEG DIAGNOSIS Migraine, history of seizures CONDITION OF RECORDING Awake, drowsy, asleep EEG NUMBER [id number] CLINICAL HISTORY Patient presenting due to severe migraines. She has a history of epilepsy. EEG DESCRIPTION During the awake state with eyes closed the background consists of 10 Hz posterior dominant rhythm which attenuates appropriately with eye opening. The recording is continuous. There is a well developed anterior-posterior gradient. No significant asymmetries of background activities are noted. With drowsiness there is waxing and waning of the dominant rhythm with eventual replacement by a mixture of beta, alpha, and theta activity. As the patient enters stage II sleep, symmetrical spindles and K-complexes are present. Arousal is unremarkable. There are no epileptiform discharges or seizures during this recording. Hyperventilation and photic stimulation were not performed. IMPRESSION This is a normal routine EEG recorded in awake and asleep states. There are no electrographic seizures identified, nor are there any epileptiform discharges. Please note that a normal EEG cannot exclude a seizure disorder. Clinical correlation is recommended.
--- NOTE | 2022-11-19 11:42 | WPDNEUROPN ---
Progress Note: A&P Assessment and Plan (1) Syncope: Code(s): R55 - Syncope and collapse Status: Acute (2) Left leg weakness: Code(s): R29.898 - Other symptoms and signs involving the musculoskeletal system Status: Acute (3) Headache: Code(s): R51.9 - Headache, unspecified Status: Acute (4) Empty sella syndrome: Code(s): E23.6 - Other disorders of pituitary gland Status: Acute (5) Epilepsy: Qualifiers: Epilepsy type: unspecified Intractability: not intractable Status epilepticus: without status epilepticus Qualified Code(s): G40.909 - Epilepsy, unspecified, not intractable, without status epilepticus Code(s): G40.909 - Epilepsy, unspecified, not intractable, without status epilepticus Status: Acute Plan Ms. Jeff is a 42 year old female with a history of epilepsy and headaches currently admitted for worsening headaches and focal neurological symptoms. Patient reports a history of prior empty sella syndrome . Her MRI and MRV of the brain during this admission are normal. Opening pressure normal as well. She does not have empty sella syndrome or IIH. This headaches appear to be most likely migraines. - Patient is okay to discharge - Take Depakote 500mg BID x 5 days - Start Topamax 25mg at bedtime for 1 week, then increase to 25mg BID - Call Neurology office with update in about 2 weeks - Will have her follow-up as outpatient Subjective Date/time seen: 11/19/22 11:42 Interval history: Ms. Jeff is a 42 year old female with a history of epilepsy and headaches currently admitted for worsening headaches and focal neurological symptoms. Patient was recently evaluated by me in Neurology clinic earlier this month. At that time she reported that her headaches are worsening and that she has a history of empty sella syndrome . She had a MRI brain and opening pressure done in 2020 that were both normal. She takes Keppra 500mg BID for her epilepsy. Patient reports dull headache, that has gotten worse since this past summer. The headache is pounding. She went to the ER recently. She feels that her concentration and focus are worse. She feels that her speech and coordination have gotten worse. Her headache has been throbbing from the back of the head to her neck. She takes Benadryl and Excedrin which will dull the pain. She feels that her vision has gotten worse. She is having to use a magnifying glass to see things at work. She has lost weight recently. She has not had a dilated eye exam since her headaches have worsened. With the headaches she has photophobia, phonophobia, nausea, vomiting. She has a history of migraines. She has previously taken Ubrelvy. She has never taken Imitrex or sumatriptan. She does not have a history of IIH or papilledema as far as she knows. She has not had a seizure in over a year. She takes Keppra 500mg BID and Lamictal 100mg in the morning and 300mg qhs. No concerns regarding her seizures. She presented to [place] ED due to worsening of the headache on the left side of head. She also complained of left leg weakness and a presyncopal episode while at work. She had an MRI brain and MRV brain done already during this admission that were both normal. CTA brain showed diffuse, mold anterior and moderate posterior intracerebral arterial narrowing (either normal for patient or vasospasm related). However MRA of the brain was normal. She has been getting Toradol PRN while she has been hospitalized which does seem to help. Opening pressure normal. Patient received her first dose of VPA this morning. Says she feels better. Rating headache 5/10. Review of Systems Constitutional: Constitutional: Denies chills, Denies fever(s) and Denies weight loss Eyes: Eyes: Denies diplopia and Denies loss of vision ENT: Reports dizziness, Denies hearing loss and Denies tinnitus Cardiovascular: Cardiovascular: Denies chest pain, Denies syncope and Denies dyspnea Re
--- NOTE | 2022-11-19 13:01 | PM.DS ---
DS: Admitting Diagnosis Discharge Date 11/19/22 Admitting Diagnosis migraine DS: Discharge Diagnosis Discharge Diagnosis (1) Migraine headache: Code(s): G43.909 - Migraine, unspecified, not intractable, without status migrainosus Status: Acute DS: Summary Hospital Course Reason for hospitalization: Headaches Hospital Course: Patient is a 42-year-old female with past medical history of epilepsy and possibly empty sella syndrome presents to ED with complaints of worsening headache. MRI MRV of brain are normal. Opening pressure on lumbar puncture 13, normal. Patient seen by Neurology consultation please patient likely had migraines. Her condition from neurology's for Depakote 500 mg twice daily for 5 days and Topamax type titrate to 25 mg twice daily. Patient follow-up with Neurology in 2 weeks. Patient has prescription of Imitrex for migraine abortive therapy. At time of discharge patient's labs stable, vitals stable patient is stable for discharge home. Patient understands and agrees with plan. Status at Discharge Cognitive/behavioral status at discharge: baseline Time Spent with Patient Time attestation: Total time spent providing and/or coordinating discharge services: 35 Exam Narrative: - GENERAL: Pleasant woman in no acute distress. Well-nourished. - EYES: EOMI. Anicteric. - HENT: Moist mucous membranes. - LUNGS: Clear to auscultation bilaterally, no wheezing, rhonchi, or rales. - CARDIOVASCULAR: Regular rate and rhythm. No murmur. No JVD. - ABDOMEN: Soft, non-tender and non-distended. No palpable masses. - EXTREMITIES: No edema. Peripheral pulses 2+. Non-tender. - NEUROLOGIC: No focal neurological deficits. CN II-XII grossly intact. - PSYCHIATRIC: Awake, Alert and oriented x 3. Appropriate mood and affect. - SKIN: No rashes or lesions. Warm. - LYMPH: No cervical lymphadenopathy. DS: Data Data Completed and Pending Labs on day of discharge: Labs from last 24 hours 11/19/22 06:06 WBC 5.6 RBC 3.91 L Hgb 12.4 Hct 37.1 MCV 94.9 MCH 31.7 MCHC 33.4 RDW 11.6 Plt Count 170 MPV 10.1 Immature Gran % (Auto) 0.2 Neut % (Auto) 55.8 Lymph % (Auto) 31.8 [place] % (Auto) 9.7 H Eos % (Auto) 1.6 Baso % (Auto) 0.9 Lymph # (Auto) 1.77 [place] # (Auto) 0.5 Eos # (Auto) 0.1 Baso # (Auto) 0.1 Abs Immat Gran (auto) 0.01 Absolute Neuts (auto) 3.1 Absolute Nucleated RBC 0.0 Nucleated RBC % 0.0 Sodium 137 Potassium 3.9 Chloride 107 Carbon Dioxide 28 Anion Gap 2 L BUN 11 Creatinine 0.80 Estim Creat Clear Calc 78 Estimated GFR > 60 Glucose 90 Calcium 8.3 L Total Bilirubin 0.6 AST 23 ALT 13 Alkaline Phosphatase 40 Total Protein 6.0 L Albumin 3.7 Imaging Radiologist's impression: head CT 11/16 IMPRESSION:? No acute intracranial process. CTA head/neck 11/16 IMPRESSION: No large vessel occlusion. No significant carotid or vertebral artery stenosis. Diffuse, mild anterior and moderate posterior intracerebral arterial narrowing, may be normal for this patient or reflect a component of vasospasm, such as reversible cerebral vasoconstriction syndrome. brain MRI 11/17 IMPRESSION: 1. Normal brain. brain MRV 11/17 IMPRESSION: 1. Normal MRA. Discharge Plan Discharge Attending physician on discharge: Elizabeth Kay Consulting providers: Tian Ott Discharging Clinician: Elizabeth Kay Anticipated Discharge Date/Time: 11/19/22 11:45 Patient Disposition: Home, Self-Care Activity: may shower Diet: regular Discharge Instructions: For migraine we will start preventative measures with topamax 25mg BID. Use imitrex to break a migraine. Depakote for 5 days. Follow up with PCP in 1 week with the new med changes, neurology in 2 weeks. Patient Instructions: Topiramate (By mouth) Stand Alone Forms: General Discharge Information, Work/School Release IP Follow-up/Referrals: Mallory Saldivar MD [Primary Care Provider] - 1
[2022-11-20 20:19] LABS: Herpes Simplex Type 1 DNA PCR Not Detected (Not Detected); Herpes Simplex Type 2 DNA PCR Not Detected (Not Detected)
[2022-11-21 00:41] LABS: Cryptococcus Antigen Not Detected (Not Detected); Cryptococcus Specimen Source CSF
[2022-11-21 05:59] LABS: Epstein Barr Virus DNA PCR Not Detected (Not Detected); Source Epstein Barr Virus CSF
[2022-11-26 18:49] LABS: Albumin, CSF 27.3 mg/dL (8.0-42.0); Albumin, Serum 4.1 g/dL (3.6-5.1); IgG Index, CSF 0.52 (<0.70); IgG, CSF 3.2 mg/dL (0.8-7.7); Immunoglobulin G, Serum 922 mg/dL (600-1640); Myelin Basic Protein, CSF <2.0 mcg/L (<=4.0); Oligoclonal Bands (IgG), CSF Absent (Absent); Synthesis Rate IgG, CSF -1.1 mg/24 h (-9.9-3.3)
== END 2022-11-19 12:31 | disposition home or self-care (01) | DRG 103 ==
LOC: ANHED 15:46 → ANH3MEDSUR 18:58
PROVIDERS: Nurse Practitioner; Physician Assistant; Admitting Provider Chiropractor; Emergency Provider Emergency Medicine; PCP Family Medicine; Visit Provider Student in an Organized Health Care Education/Training Program
DX: G43.909 Migraine, unspecified, not intractable, without status migrainosus (principal); G81.94 Hemiplegia, unspecified affecting left nondominant side; R55 Syncope and collapse; G40.909 Epilepsy, unspecified, not intractable, without status epilepticus; E23.6 Other disorders of pituitary gland; E87.6 Hypokalemia; F32.A Depression, unspecified; F12.90 Cannabis use, unspecified, uncomplicated; F41.9 Anxiety disorder, unspecified; R47.81 Slurred speech; R01.1 Cardiac murmur, unspecified; Z86.16 Personal history of COVID-19; Z90.49 Acquired absence of other specified parts of digestive tract; Z90.710 Acquired absence of both cervix and uterus
CPT/HCPCS: 36415; 62328; 70450; 70496; 70498; 70544; 70553; 80048; 80053; 82040; 82042; 82784; 82945; 83735; 83873; 83916; 84157; 84443; 85025; 85610; 85730; 86403; 86617; 87070; 87529; 87798; 89051; 93005; 93306; 93308; 93880; 95816; 96361; 96372; 96374; 96375; 96376; 99285; A9270; A9577; G0378; J0780; J1200; J1885; J2405; J3030; J7030; J7120; Q9967

== ENCOUNTER 2022-11-24 14:02 | Outpatient (CLI) | payer OTHER, SELFPAY ==
--- NOTE | ~2022-11-24 | XR_ITS ---
XR chest 2V DATE: 11/24/2022 14:20 INDICATION: Abnormal weight loss TECHNIQUE: PA and lateral views COMPARISON: 02/11/2021 2 view chest FINDINGS: Normal heart size. No hilar or mediastinal enlargement. No pulmonary infiltrate or consol idation, pulmonary vascular congestion or pleural effusion or pneumothorax. IMPRESSION: No active cardiopulmonary disease Reviewed, dictated and finalized at location B.
[2022-11-24 14:45] LABS: Hematocrit 41.8 % (37.0-47.0); Mean Corpuscular HGB Conc 33.5 g/dl (32-36); Mean Corpuscular Volume 95.4 fl (80-100); Platelet Count Result 235 k/mm3 (150-375); Red Blood Count 4.38 M/mm3 (4.2-5.4); Red Cell Distribution Width 11.7 % (11.5-14.5); White Blood Count 5.8 K/mm3 (4.5-10.0)
[2022-11-24 14:55] LABS: Alanine Aminotransferase 16 U/L (6-35); Albumin Level 4.4 g/dL (3.5-5.1); Alkaline Phosphatase 47 U/L (38-126); Anion Gap 7 mmol/L (8-16); Aspartate Amino Transferase 19 U/L (14-36); Bilirubin,Total 0.5 mg/dL (0.2-1.3); Blood Urea Nitrogen 13 mg/dL (7-17); Calcium 9.1 mg/dL (8.4-10.2); Carbon Dioxide 27 mmol/L (22-30); Chloride 104 mmol/L (98-107); Estimated Glomerular Filt Rate > 60; Glucose 100 mg/dL (65-110); Potassium 3.4 mmol/L (3.4-5.0); Sodium 138 mmol/L (137-145)
[2022-11-24 16:47] LABS: Free T4 Free Thyroxine 1.08 ng/mL (0.78-2.19)
== END 2022-11-24 14:03 | disposition home or self-care (01) ==
PROVIDERS: PCP Family Medicine; Visit Provider Physician Assistant
DX: R63.4 Abnormal weight loss (principal); D64.9 Anemia, unspecified; R53.83 Other fatigue; Z13.1 Encounter for screening for diabetes mellitus
CPT/HCPCS: 36415; 71046; 80053; 84439; 84443; 85027

== ENCOUNTER 2023-01-12 02:32 | Day surgery (SDC) | payer OTHER, SELFPAY ==
[2022-12-29 13:51] VITALS: BMI 25.0
--- NOTE | 2023-01-10 09:17 | SUR.PREOP ---
Patient called regarding upcoming procedure. Reviewed preop instructions, appointment times, and procedure prep.
[2023-01-12 08:39] VITALS: BP 117/75; PULSE 84; RESP 18; TEMP 36.9; O2SAT 99; BMI 23.8
--- NOTE | 2023-01-12 08:46 | WPDANESEPPF ---
Anes - Initial Pre Proc Eval Procedure: Operation Date: 01/12/23 10:00 Proposed Procedures p Esophagogastroduodenoscopy & Colonoscopy - Polo Graham MD Date/Time: 01/12/23 08:46 Surgeon: Polo Graham MD Pre Op Diagnosis: Abnormal weight loss, Left upper quadrant pain, Patient Data Age: 42 Gender: F Height: 1.63 m Weight: 62.8 kg Last Vital Signs Temp 36.9 C 01/12/23 08:39 Pulse 84 01/12/23 08:39 Resp 18 01/12/23 08:39 BP 117/75 01/12/23 08:39 Pulse Ox 99 01/12/23 08:39 O2 Del Method Room Air 01/12/23 08:39 Allergies Allergy/AdvReac Type Severity Reaction Status Date / Time tizanidine [From [facility]] Allergy Mild Unknown-RECEIVED Verified 01/12/23 08:38 AN SMALL CHILD phenobarbital Allergy Unknown-RECEIVED Verified 01/12/23 08:38 A SMALL CHILD Home Medications Medication Instructions Recorded Confirmed Type lamotrigine 100 mg tablet 100 mg PO BID 11/16/22 01/12/23 History lamotrigine 200 mg tablet 200 mg PO HS 11/16/22 01/12/23 History levetiracetam 500 mg tablet 1,000 mg PO BID 11/16/22 01/12/23 History topiramate 25 mg tablet (Topamax) 50 mg PO BID 30 days #120 tabs 11/24/22 01/12/23 Rx ubrogepant 100 mg tablet (Ubrelvy) 100 mg PO ONCE PRN migraine #14 11/24/22 01/12/23 Rx tabs escitalopram oxalate 5 mg tablet 5 mg PO DAILY 12/29/22 01/12/23 History Patient hx anesthesia problems: none Family hx anesthesia problems: none Results Review: All pre-operative results and documents have been reviewed as part of the pre-operative evaluation. [facility] Past Medical History Medical History Abnormal weight loss Anxiety Chronic constipation Depression Early satiety Empty sella syndrome Epilepsy Hematochezia History of COVID-19 LUQ pain Mucus in stool Nausea Surgical History Surgical History History of appendectomy (2019) History of section History of hysterectomy (2009) Family History Family History Father Diabetes mellitus Hypertension Mother COPD (chronic obstructive pulmonary disease) Congestive heart failure Eczema Son Ventricular septal defect Social History Social History Social History: Code status: Full code. Smoking status: Never smoker Second hand tobacco smoke exposure: No Alcohol intake: never Substance use: current Substance use type: marijuana Other substance usage details: daily Last use: 11/16/2022 Lack of Transportation: No Lack of Food: Never True Current Housing: I Have Housing Concerned About Future Housing: No Difficulty Paying Gas/Electric Bills: No Difficulty Paying for Meds: No Currently Unemployed: No Education: Bachelor's Degree Difficulty w/ Childcare or Family Care: No Living arrangements: with family Occupation/Education: occupation Spiritual care concerns: No Anes - Eval Final PreProcedure Day of Procedure 01/12/23 08:46 Patient weight: normal Heart: regular rate and rhythm Lungs: clear to auscultation Airway: Mallampati scale class II Neurological: alert and oriented Last oral intake: >/= 8 hours ASA classification: III Emergent: no Anesthetic plan: proceed Anesthesia type and monitoring: general GIVS and standard monitoring Results Review: All pre-operative results and documents have been reviewed as part of the pre-operative evaluation. Informed Consent: The patient's anesthetic plan and its attendant risks and benefits were discussed with the patient/family/POA. Questions were solicited and answers provided to the satisfaction of the patient/family/POA.
[2023-01-12] MEDS: LACTATED RINGERS 1,000 ML 150 ML IV CONT (08:48)
--- NOTE | 2023-01-12 08:49 | SUR.PREOP ---
Patient states she has had a hysterectomy. Urine not obtained.
--- NOTE | 2023-01-12 09:32 | PM.HPGS ---
History of Present Illness History of Present Illness Consent: Risks, benefits, and alternatives have been discussed and questions answered. Patient agrees to proceed with procedure. Chief complaint: Abnormal weight loss, Left upper quadrant pain, Narrative: Jamila Jeff is a 42 year old female with weight loss and constipation, never had scopes Review of Systems Constitutional: Constitutional: Denies headache(s) and Denies weakness Eyes: Eyes: Denies blurry vision ENT: Reports Normal hearing present, Denies headache(s) and Denies neck pain Cardiovascular: Cardiovascular: Denies chest pain and Denies dyspnea Respiratory: Respiratory: Denies dyspnea Gastrointestinal: Gastrointestinal: Reports no additional gastrointestinal complaints Genitourinary: Genitourinary: Denies dysuria Musculoskeletal: Musculoskeletal: Denies neck pain Integumentary/Breasts: Skin/Breast: Denies dry skin Neurologic: Reports Normal hearing present, Denies headache(s) and Denies weakness Psychiatric: Psychiatric: Denies anxiety Endocrine: Endocrine: Denies change in body appearance Hematologic/Lymphatic: Hematologic/Lymphatic: Denies easy bleeding Allergic/Immunologic: Allergic/Immunologic: Denies urticaria PMFSH Past Medical History Medical History Abnormal weight loss Anxiety Chronic constipation Depression Early satiety Empty sella syndrome Epilepsy Hematochezia History of COVID-19 LUQ pain Mucus in stool Nausea Surgical History Surgical History History of appendectomy (2019) History of section History of hysterectomy (2009) Family History Family History Father Diabetes mellitus Hypertension Mother COPD (chronic obstructive pulmonary disease) Congestive heart failure Eczema Son Ventricular septal defect Social History Social History Social History: Code status: Full code. Smoking status: Never smoker Second hand tobacco smoke exposure: No Alcohol intake: never Substance use: current Substance use type: marijuana Other substance usage details: daily Last use: 11/16/2022 Lack of Transportation: No Lack of Food: Never True Current Housing: I Have Housing Concerned About Future Housing: No Difficulty Paying Gas/Electric Bills: No Difficulty Paying for Meds: No Currently Unemployed: No Education: Bachelor's Degree Difficulty w/ Childcare or Family Care: No Living arrangements: with family Occupation/Education: occupation Spiritual care concerns: No Meds Home Medications and Allergies Home Medications Medication Instructions Recorded Confirmed Type lamotrigine 100 mg tablet 100 mg PO BID 11/16/22 01/12/23 History lamotrigine 200 mg tablet 200 mg PO HS 11/16/22 01/12/23 History levetiracetam 500 mg tablet 1,000 mg PO BID 11/16/22 01/12/23 History topiramate 25 mg tablet (Topamax) 50 mg PO BID 30 days #120 tabs 11/24/22 01/12/23 Rx ubrogepant 100 mg tablet (Ubrelvy) 100 mg PO ONCE PRN migraine #14 11/24/22 01/12/23 Rx tabs escitalopram oxalate 5 mg tablet 5 mg PO DAILY 12/29/22 01/12/23 History Allergies Allergy/AdvReac Type Severity Reaction Status Date / Time tizanidine [From [facility]] Allergy Mild Unknown-RECEIVED Verified 01/12/23 08:38 AN SMALL CHILD phenobarbital Allergy Unknown-RECEIVED Verified 01/12/23 08:38 A SMALL CHILD Vital Signs Vital Signs - 24 hr 01/12/23 08:39 Temperature 98.4 F Pulse Rate 84 Respiratory Rate 18 Blood Pressure 117/75 Pulse Oximetry 99 Oxygen Delivery Room Air Exam Const: General: comfortable and no acute distress HENMT: Face/Nose/Sinus: Normal nares present Eyes: General: appearance normal, both eyes and all related structures Nec
--- NOTE | 2023-01-12 10:05 | SUR.OPER ---
EGD ended at 947. Colonoscopy began at 953.
[2023-01-12 10:09] VITALS: BP 134/62; PULSE 62; RESP 17; O2SAT 100
[2023-01-12 10:19] VITALS: BP 103/68; PULSE 61; RESP 17; O2SAT 100
[2023-01-12 10:29] VITALS: BP 108/62; PULSE 60; RESP 16; O2SAT 100
== END 2023-01-12 10:39 | disposition home or self-care (01) ==
PROVIDERS: PCP Family Medicine; Visit Provider Internal Medicine Gastroenterology
PROC: 0DJ08ZZ Inspection of Upper Intestinal Tract, Via Natural or Artificial Opening Endoscopic (ICD-10-PCS; CPT 43235; principal; 2023-01-12 10:00)
DX: Z12.11 Encounter for screening for malignant neoplasm of colon (principal); K29.80 Duodenitis without bleeding; K31.89 Other diseases of stomach and duodenum; K21.00 Gastro-esophageal reflux disease with esophagitis, without bleeding; K44.9 Diaphragmatic hernia without obstruction or gangrene; K64.8 Other hemorrhoids; R63.4 Abnormal weight loss; K29.70 Gastritis, unspecified, without bleeding; Z68.23 Body mass index [BMI] 23.0-23.9, adult; F41.9 Anxiety disorder, unspecified; K59.09 Other constipation; F32.A Depression, unspecified; G40.909 Epilepsy, unspecified, not intractable, without status epilepticus; Z79.899 Other long term (current) drug therapy
CPT/HCPCS: 43239; 45378; 88305; J2704; J7120

== ENCOUNTER 2024-01-03 08:28 | Emergency (ER) | payer OTHER, SELFPAY ==
[2024-01-03 08:40] VITALS: BP 122/69; PULSE 78; RESP 20; TEMP 36.8; O2SAT 98
--- NOTE | 2024-01-03 09:09 | ED.URI ---
HPI - URI/Sore Throat General Chief Complaint: Upper Respiratory Infection Stated Complaint: fever/chest heavy/mucas Time Seen by Provider: 01/03/24 09:10 Source: patient, RN notes reviewed and old records reviewed Mode of arrival: ambulatory Limitations: no limitations History of Present Illness HPI Narrative: 43-year-old female to Express Care with complaint cough, fever, fatigue, bilateral ear discomfort, body aches for 3 days. Patient states that her children are currently being treated for pneumonia. Patient has attempted to treat symptoms at home with cjnb-woc-gopphlp medications. Patient denies shortness of breath, difficulty swallowing, pertinent medical history. Patient able to tolerate fluids By mouth. Patient resting comfortably in exam room, appears tired and acutely ill. Respirations even and nonlabored. Patient no acute distress. Related Data Home Medications Medication Instructions Recorded Confirmed lamotrigine 100 mg tablet 100 mg PO BID 11/16/22 01/03/24 levetiracetam 500 mg tablet 1,000 mg PO BID 11/16/22 01/03/24 escitalopram oxalate 5 mg tablet 5 mg PO DAILY 12/29/22 01/03/24 gabapentin 300 mg capsule 300 mg PO TID 01/03/24 01/03/24 ubrogepant 100 mg tablet (Ubrelvy) 100 mg PO DAILY PRN Migraine 01/03/24 01/03/24 Headache Allergies Allergy/AdvReac Type Severity Reaction Status Date / Time tizanidine [From Zanaflex] Allergy Mild Unknown-RECEIVED Verified 01/03/24 09:08 AN SMALL CHILD phenobarbital Allergy Unknown-RECEIVED Verified 01/03/24 09:08 A SMALL CHILD Review of Systems Review of Systems: All systems reviewed & are unremarkable except as noted in HPI and below Constitutional: Constitutional: Reports as per HPI, Reports body ache(s), Reports fatigue and Reports fever(s) Eyes: Eyes: Reports no additional eye complaints ENT: Reports as per HPI and Reports otalgia Cardiovascular: Cardiovascular: Reports no additional cardiovascular complaints, Denies chest pain and Denies dyspnea Respiratory: Respiratory: Reports no additional respiratory complaints, Reports cough and Denies dyspnea Musculoskeletal: Musculoskeletal: Reports no additional musculoskeletal complaints Neurologic: Reports system reviewed and no additional complaints, except as documented Psychiatric: Psychiatric: Reports no additional psychiatric complaints PMFSH Past Medical History Medical History Abnormal weight loss Anxiety Chronic constipation Depression Early satiety Empty sella syndrome Epilepsy Hematochezia History of COVID-19 LUQ pain Mucus in stool Nausea Surgical History Surgical History History of appendectomy (2019) History of section History of hysterectomy (2008) Family History Family History Father Diabetes mellitus Hypertension Mother COPD (chronic obstructive pulmonary disease) Congestive heart failure Eczema Son Ventricular septal defect Social History Social History Social History: Code status: Full code. Smoking status: Never smoker Second hand tobacco smoke exposure: No Alcohol intake: never Substance use: current Substance use type: marijuana Other substance usage details: daily Last use: 11/16/2022 Lack of Transportation: No Lack of Food: Never True Current Housing: I Have Housing Concerned About Future Housing: No Difficulty Paying Gas/Electric Bills: No Difficulty Paying for Meds: No Currently Unemployed: No Education: Bachelor's Degree Difficulty w/ Childcare or Family Care: No Living arrangements: with family Occupation/Education: occupation Spiritual care concerns: No Comments At the time of my signature, I reviewed and agree with the nursing past medical, surgical, social, and family history. There is no relevant family history pertinent to the patient complaint. Exam Const: General: cooperative, no acute distress, well developed, alert, ill appearing acutely, tired appearing, uncomfortable, well groomed and well nourished Nutritional Appearance: well nourished Orientation/consciousness: patient oriented x3 Limitations: no limitations HENMT: Head: normal to inspection Ears: external ears normal and TM abnormal with fluid behind the TM bilateral Face/Nose/Sinus: Normal external nose present, Normal nares present, normal facial exam, No erythema and No edema Face and sinus: normal facial exam, no erythema and no edema Mouth: Yes Normal oral and palatal mucosa present Eyes: General: appearance normal, both eyes and all related structures Neck: Neck: normal visual inspection, full ROM and no meningeal signs Lymphatic: no lymphadenopathy noted and no lymphedema noted Chest: Chest palpation & inspection: normal inspection of the chest Resp: Effort & Inspection: normal respiratory effort and able to speak in complete sentences Auscultation: crackles on the left in the lower lung be and diminished lung sounds bilateral Cardio: Jugular venous distension: no JVD Rate: regular rate Rhythm: regular rhythm Back/Spine/Pelvis: Cervical Spine: cervical ROM normal Skin: General skin exam: normal color, no rashes or lesions noted and turgor normal Neuro: General: patient oriented x3, gait normal, moves all extremities and no meningeal signs Speech: normal speech Gait exam (Neuro): Normal gait present Extrem: General: normal to inspection, full ROM and capillary refill normal Psych: Appearance: grossly normal and well kempt Course Course Emergency Course: Some parts of this dictation were generated by voice recognition software and may contain typographical and/or grammatical inaccuracies. Level of Care: Express Care Visit Vital Signs Vital signs: Vital Signs Temperature 36.8 C 01/03/24 08:40 Pulse Rate 78 01/03/24 08:40 Respiratory Rate 20 01/03/24 08:40 Blood Pressure 122/69 01/03/24 08:40 Pulse Oximetry 98 01/03/24 08:40 Oxygen Delivery Room Air 01/03/24 08:40 Temperature 36.8 C 01/03/24 08:40 Pulse Rate 78 01/03/24 08:40 Respiratory Rate 20 01/03/24 08:40 Blood Pressure 122/69 01/03/24 08:40 Pulse Oximetry 98 01/03/24 08:40 Oxygen Delivery Room Air 01/03/24 08:40 reviewed MDM - URI/Sore Throat MDM Narrative Medical decision making narrative: 43-year-old female to Express Care with complaint cough, fever, fatigue, bilateral ear discomfort, body aches for 3 days. Patient states that her children are currently being treated for pneumonia. Patient has attempted to treat symptoms at home with wehc-hhg-kizkkuz medications. Patient denies shortness of breath, difficulty swallowing, pertinent medical history. Patient able to tolerate fluids By mouth. Patient resting comfortably in exam room, appears tired and acutely ill. Respirations even and nonlabored. Patient no acute distress. On exam, bilateral TMs with fluid. On auscultation, bilateral lower lung sounds diminished. Crackles left Lower lung. Consistent with pneumonia Patient is sitting uncomfortably in exam room nontoxic in appearance. Patient appropriate for outpatient treatment and follow-up. Discharge instructions reviewed with patient, as well as provided in writing per nursing staff. The instructions also include specific and strict return/GO TO THE ER as well as f/u information. All questions have been answered, and the patient deny any further questions with discharge and discharge plan. Some parts of this dictation were generated by voice recognition software and may contain typographical and/or grammatical inaccuracies. Differential Diagnosis Differential diagnosis: Likely upper respiratory infection, croup, otitis media, sinusitis, viral infection, bronchitis, influenza and pharyngitis Discharge Plan Discharge Clinical Impression: Pneumonia Patient Disposition: Home, Self-Care Condition: Stable Instructions: Pneumonia (ED) Additional Instructions: -Alternate Tylenol and Motrin per package directions for fever or pain. -Antihistamine medication such as Benadryl at night and Zyrtec/Claritin/Sussy during the day can help improve symptoms. -Use Flonase twice a day for 5 days then daily to help reduce the inflammation and dry up your sinuses. -You can also use Sudafed or Mucinex. Be sure to drink plenty of water with these medications at least 8 ounces with every dose and it is important to drink 8 to 10 glasses of water per day. Water is a natural decongestant -Eat and drink things that are easy to swallow, like tea or soup, or popsicles. -Oral rinses such as: Salt water gargles and/or may use topical anesthetic (eg. Chloraseptic spray) or lozenges to relieve dryness or throat pain). -Frequent hand washing or hand fruit and vegetable parer is one of the best ways to prevent spread of infection. -Using a vaporizer or humidifier at night will also help thin secretions and help with coughing up phlegm. -Follow up with primary care provider in 2-3 days if condition is not improving; or seek ER visit if you have trouble breathing, cannot drink enough fluids, have muffled voice, difficulty opening your mouth, or severe swelling. Prescriptions: New prednisone 20 mg tablet See Rx Instructions .ROUTE .COMPLEX Qty: 9 0RF Rx Instructions: Take 40mg x3 days, 20mg x3 days amoxicillin-pot clavulanate 875-125 mg tablet 1 tablet PO Q12H Qty: 20 0RF albuterol sulfate 90 mcg/actuation HFA aerosol inhaler 2 puff inhalation QID PRN (Reason: shortness of breath or wheezing) Qty: 8.5 0RF No Action gabapentin 300 mg capsule 300 mg PO TID Ubrelvy 100 mg tablet 100 mg PO DAILY PRN (Reason: Migraine Headache) escitalopram oxalate 5 mg tablet 5 mg PO DAILY levetiracetam 500 mg tablet 1,000 mg PO BID lamotrigine 100 mg tablet 100 mg PO BID omeprazole 40 mg capsule,delayed release(DR/EC) 40 mg PO .daily Qty: 90 3RF Follow-up/Referrals: Eliza,Mallory Cross DO [Primary Care Provider] -
== END 2024-01-03 09:30 | disposition home or self-care (01) ==
PROVIDERS: Emergency Provider Nurse Practitioner Family; PCP Internal Medicine
DX: J18.9 Pneumonia, unspecified organism (principal); G40.909 Epilepsy, unspecified, not intractable, without status epilepticus; F41.9 Anxiety disorder, unspecified; F32.A Depression, unspecified; Z86.16 Personal history of COVID-19
CPT/HCPCS: 99213; G0463

== ENCOUNTER → 2024-04-16 12:50 | Outpatient (CLI) | payer OTHER, SELFPAY ==
--- NOTE | ~2024-04-16 | XR_ITS ---
EXAMINATION: XR foot RT min 3V DATE: 04/16/2024 13:50 INDICATION: Fibromyalgia TECHNIQUE: Dorsoplantar, two oblique and lateral views of the right foot were obtained. COMPARISON: None. FINDINGS: Bone alignment is normal. No fracture. Mild polyarticular osteoarthritis at the first metatarsophalan geal joint, several joints in the midfoot and multiple interphalangeal joints. Small Achilles and martha ntar calcaneal spurs. Soft tissues are unremarkable. IMPRESSION: 1. Small Achilles and plantar calcaneal spurs and mild polyarticular osteoarthritis in the right foot . Reviewed, dictated and finalized at location B. CTOR OF BRAND MARKETING IMPRESSION: 1. Small Achilles and plantar calcaneal spurs and mild polyarticular osteoarthr itis in the right foot.
--- NOTE | ~2024-04-16 | XR_ITS ---
EXAMINATION: XR foot LT min 3V DATE: 04/16/2024 13:52 INDICATION: Fibromyalgia TECHNIQUE: Dorsoplantar, oblique and lateral views of the left foot were obtained. COMPARISON: 04/19/2021 FINDINGS: Bone alignment is normal. No fracture. Mild polyarticular osteoarthritis at the first metatarsophalan geal joint, several joints in the midfoot and several interphalangeal joints. Small plantar calcaneal spur. Soft tissues are unremarkable. IMPRESSION: 1. Small plantar calcaneal spur and mild polyarticular osteoarthritis in the left mid and forefoot. Reviewed, dictated and finalized at location B. E INSTALLER HELPER IMPRESSION: 1. Small plantar calcaneal spur and mild polyarticular osteoarthritis in the le ft mid and forefoot.
--- NOTE | ~2024-04-16 | XR_ITS ---
EXAMINATION: XR hand RT min 3V DATE: 04/16/2024 13:54 INDICATION: Fibromyalgia. TECHNIQUE: 3 views of right hand were obtained. COMPARISON: None. FINDINGS: Alignment is normal. No fracture. There is mild osteoarthritis of fourth and fifth distal i nterphalangeal joints. IMPRESSION: 1. Mild polyarticular osteoarthritis. Reviewed, dictated and finalized at location A. CE SYSTEM ANALYST
--- NOTE | ~2024-04-16 | XR_ITS ---
EXAMINATION: XR sacrum coccyx min 2V DATE: 04/16/2024 13:50 INDICATION: Polyarthritis and fibromyalgia TECHNIQUE: Frontal, angled frontal and lateral views of the sacrum and coccyx were obtained. COMPARISON: None. FINDINGS: Bone alignment is normal. No fracture. Bilateral hip joint spaces appear relatively preserved. Mild o steoarthritis at the bilateral sacralized joints. No erosions to suggest inflammatory sacroiliitis. M oderate lower lumbar spondylosis. Surgical clip projects of the left hemipelvis. IMPRESSION: 1. Moderate lumbar spondylosis and mild bilateral sacral iliac osteoarthritis. Reviewed, dictated and finalized at location B. G[facility] HOME
--- NOTE | ~2024-04-16 | XR_ITS ---
EXAMINATION: XR hand LT min 3V DATE: 04/16/2024 13:52 INDICATION: Fibromyalgia. TECHNIQUE: 3 views of left hand were obtained. COMPARISON: None. FINDINGS: Alignment is normal. No fracture. There is mild osteoarthritis of first carpometacarpal florentino nt, third metacarpophalangeal joint, and second and fourth distal interphalangeal joints. IMPRESSION: 1. Mild polyarticular osteoarthritis. Reviewed, dictated and finalized at location A. STENCILER
--- OUTSIDE RECORDS SUMMARY | 2024-04-16 14:38 | XMS_ITS | Clinical Summary ---
Author Organization [facility] Address [address] [place] [address] Care Team Providers Care Stamp Mounter Name Role Phone ElizaMallory Crissy RICHTER Primary Care Provider [phone] Allergies Active Allergy Reactions Criticality Noted Date Comments Phenobarbital Unknown 11/21/2011 wirely Unknown reaction - she was a baby Tizanidine Unknown,Other (See comments) Low 11/22/2022 Stiffened me up so I couldn't move. Medications DULoxetine DR (CYMBALTA) 60 mg capsule Take 1 capsule (60 mg total) by mouth daily Active gabapentin (NEURONTIN) 300 mg capsule TAKE 1 CAPSULE BY MOUTH ONCE DAILY IN THE MORNING AND AFTERNOON AND 2 CAPSULES AT BEDTIME Active lamoTRIgine (LaMICtal) 200 mg tablet Take 1 tablet (200 mg total) by mouth daily 8 Active lamoTRIgine (LaMICtal) 100 mg tablet Take 1 tablet (100 mg total) by mouth 2 (two) times a day Active levETIRAcetam (KEPPRA) 500 mg tablet Take 2 tablets (1,000 mg total) by mouth 2 (two) times a day Active Ubrelvy 100 mg tablet TAKE ONE TABLET BY MOUTH ONCE NEEDED FOR HEADACHE. IF SYMPTOMS PERSIST, A SECOND DOSE MAY BE TAKEN IN 2 HOURS. MAX 2 DOSES IN A 24 HOUR PERIOD Active Active Problems No known active problems Encounters Date Type Department Care Team Description 04/16/2024 11:55 AM SAFETY OFFICER Lab [facility] [address] [place] [address] Arrived 04/09/2024 11:00 AM SAFETY OFFICER Office Visit [facility] at [address] [place] [address] Azam Gordon DO Shortness of breath (Primary Dx); Left-sided chest pain from Last 3 Months Surgical History Surgery Date Site/Laterality Comments SECTION x2 APPENDECTOMY DILATION AND CURETTAGE OF UTERUS Medical History Medical History Date Comments Epilepsy (HCC) Fibromyalgia Migraines Family History Medical History Relation Name Comments Coronary artery disease Father htn Father Stroke Maternal Grandmother COPD Mother Emphysema Mother HTN Mother Heart failure Mother Emphysema Mother's Sister Francoise htn Mother's Sister Francoise CABG Sister 1 Jeanne Cancer Sister 1 Jeanne Coronary artery disease Sister 1 Jeanne Throat cancer Sister 2 Kay Relation Name Status Comments Father Alive Maternal Grandmother Mother Mother's Sister Francoise Alive Sister 1 Jeanne Sister 2 Kay Social History Tobacco Use Types Packs/Day Years Used Date Smoking Tobacco: Never Passive Smoke Exposure: Past Tobacco Cessation:Counseling Given: Not Answered Personal Safety Answer Date Recorded Have you ever been in or are you currently in a harmful physical or emotional relationship or is someone making you feel afraid or unsafe? Denies 06/09/2023 Comments No Sex and Gender Information Value Date Recorded Sex Assigned at Not on file Legal Sex Female 10:49 PM SAFETY OFFICER Gender Identity Not on file Sexual Orientation Not on file Obstetrics History Last Filed Vital Signs Vital Sign Reading Time Taken Comments Blood Pressure 117/76 04/09/2024 10:48 AM SAFETY OFFICER Pulse 70 04/09/2024 10:48 AM SAFETY OFFICER Temperature 36.5 C (97.7 F) 04/09/2024 10:48 AM SAFETY OFFICER Respiratory Rate 16 06/09/2023 10:25 AM CDT Oxygen Saturation 98% 04/09/2024 10:48 AM SAFETY OFFICER Inhaled Oxygen Concentration - - Weight 83.2 kg (183 lb 8 oz) 04/09/2024 10:48 AM SAFETY OFFICER Height 162.6 cm (5' 4 ) 04/09/2024 10:48 AM SAFETY OFFICER Body Mass Index 31.5 04/09/2024 10:48 AM SAFETY OFFICER Plan of Treatment Health Maintenance Due Date Last Done Comments Depression Screening 1981 Hepatitis C Screening 1981 DTaP/Tdap/Td Vaccine (1 - Tdap) 1992 Varicella Vaccines (1 of 2 - 13+ 2-dose series) 1994 Hepatitis B Screening 09/20/1999 Regular Well Visit/Exam 18-64 09/20/1999 Covid-19 Vaccine (2023-2 5 season) 2023 06/06/2021, 06/01/2020, 05/12/2020 Breast Cancer Screening-Mammogram 02/13/2025 02/14/2024, 02/14/2024 Influenza Vaccine Completed 11/07/2023, 11/15/2022 HPV Vaccines Aged Out No longer eligi ble based on patient's age to complete this topic Pneumococcal vaccine <65 Aged Out No longer eligible based on patient's age to complete this topic Insurance [employer] [facility] [employer] Care Teams Stamp Mounter Relationship Specialty Start Date End Date Mallory Kay DO PCP - General Internal Medicine 03/10/23
--- OUTSIDE RECORDS SUMMARY | 2024-04-16 14:38 | XMS_ITS | Continuity of Care Document ---
Author Organization [facility] Address [address] [place] [address] Phone Care Team Providers Care Stand In Name Role Phone Maxime Acuña Unavailable Unavailable Allergies, Adverse Reactions, Alerts Substance Reaction Status Criticality phenobarbital Active No Information TIZANIDINE HCL Active No Informatio n Medications Medication Instructions Dosage Effective Dates (start - stop) Status Comments Medium Cream topical UAD - Active DX: S66.911A, M77.8 Keppra 500 mg tablet take 1 tablet by oral route 2 times every day 500 MG - Active Lamictal 100 mg tablet take 1 tablet by oral route 2 times every day 100 MG - Active Lamictal 200 mg tablet take 1 tablet by oral route @ bedtime - Active Medium Cream topical UAD - No Longer Active DX: S66.911A, M77.8 Procedures Procedure Date Office/outpatient visit,new, mod 2015 Methylprednisolone 80 Mg UN15 Injection Ketorolac Tromethamine Therapeutic, Prophylactic, Or Diagnostic Injection WHFO, W/O Joint(s), Prefabricated Advance Directives Directive Yes / No Effective Date File Name No Information Encounters Encounter Description Practice Location Reason(s) For Visit Diagnoses Date Provider Providers Copied on Encounter [facility], [address], [place], [id number], [place] tel:[phone] [facility] No Information [address], [place], [id number] , [place]. tel:[phone] Office/outpa tient visit,new, mod [facility], [address], [place], [id number], [place] tel:[phone] [facility] wrist (chief complaint) Strain of wrist, right, initial encounterTendinitis of right wrist [address], [place], [id number] , . tel:[phone] [facility], [address], [place], [id number], tel:[phone] [facility] No Information [address], [place], [id number] , . tel:[phone] Referring Provider: Maxime Fairchild, [address] [place], [address] . tel:[phone] Family History Family Member Type Diagnosis Age At Onset Problem (finding) Family history of hyper tension Problem (finding) Family history of chronic obstructive lung disease Problem (finding) Family history of diabetes mellitus in first degree relative Problem (finding) Family history of pulmo nary emphysema Payers Payer name Insurance type Covered green party ID Authoriza tiesmer(s) [employer] Medicaid [place] [id number] Social History Type Description Quantity Date Captured Comments Sex Female Smoking Status No Information Chief Complaint And Reason For Visit No Information Reason For Referral Reason For Referral No Information Plan Of Treatment Date Type Action Status Goal Tobacco cessation counseling completed History Of Present Illness Encounter Date Complaint History Of Prese nt Illness wrist Functional Status Date Functional Assessmen t No Information Instructions Date Instruction Additional Infor mation No Information Assessments Type Assessment Date No Information Patient Care Teams Name Effective Dates (start - stop) Status Members No Information
--- OUTSIDE RECORDS SUMMARY | 2024-04-16 14:38 | XMS_ITS | Clinical Summary ---
Author Organization [facility] Address [address] [place] [address] Care Team Providers Care Leg Man Name Role Phone Licha Kay DO Primary Care Provider [phone] Allergies Active Allergy Reactions Criticality Noted Date Comments Phenobarbital Hallucinations,Unknown 04/04/1982 Tizanidine Other (see comment),Unknown 04/04/19 03 Medications lamoTRIgine (LAMICTAL) 100 MG tablet Take 1 tablet (100 mg total) by mouth 2 (two) times daily. Active lamoTRIgine (LAMICTAL) 200 MG tablet Take 1 tablet (200 mg total) by mouth nightly at bedtime. Active levETIRAcetam (KEPPRA) 500 MG tablet Take 2 tablets (1,000 mg total) by mouth 2 (two) times daily. Active omeprazole (PRILOSEC) 40 MG capsule 40 MG ORALLY DAILY 01/28/2023 Active DULoxetine (CYMBALTA) 60 MG capsule Take 1 capsule (60 mg total) by mouth daily. 06/20/2023 Active gabapentin (NEURONTIN) 300 MG capsule Take 1 capsule (300 mg total) by mouth 3 (three) times daily. 06/20/2023 Active ubrogepant (UBRELVY) 100 MG tablet Take 1 tablet (100 mg total) by mouth 2 (two) times daily as needed for Migraine. Max of 2 tablets (200 mg) in 24 hours Active marijuana edibles 09/01/2018 Active Active Problems Problem Noted Date Diagnosed Date Cervical radiculopathy 06/24/2023 Lumbar radiculopathy 06/24/2023 Episode of altered consciousness 04/19/2023 Family history of premature coronary artery dise ase 04/19/2023 Palpitations 04/19/2023 Pre-syncope 04/19/2023 Premature atrial contractions 04/19/2023 Premature ventricular contractions 04/19/2023 Insomnia 12/10/2022 Concussion 04/20/2012 Nasal congestion 02/28/2012 Upper respiratory infection 01/07/2012 Anxiety 12/22/2011 Depression 12/22/2011 Epilepsy ([facility]) 12/22/2011 Migraines 04/04/1993 Murmur 1981 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 Encounters Date Type Department Care Team Description 02/14/2024 7:48 AM PROFILE SHAPER OPERATOR - 02/14/2024 11:59 PM PROFILE SHAPER OPERATOR Hospital Encounter [facility] Mammography [address] [place] [address] Licha Kay, DO Discharge Disposition: Home or Self Care (Routine Discharge) 02/14/2024 Travel from Last 3 Months Family History Medical History Relation Comments Breast Cancer Mother Breast Cancer Sister Relation Status Comments Mother Sister Social History Tobacco Use Types Packs/Day Years Used Date Smoking Tobacco: Never Smokeless Tobacco: Never Tobacco Cessation:Counseling Given: No Alcohol Use Standard Drinks/Week Comments Not Currently 0 (1 standard drink = 0.6 oz pur e alcohol) Comments No Sex and Gender Information Value Date Recorded Sex Assigned at Female 04/05/2023 8:40 AM PROFILE SHAPER OPERATOR Legal Sex Female 6:08 PM CDT Gender Identity Female 04/05/2023 8:40 AM PROFILE SHAPER OPERATOR Sexual Orientation Straight 04/05/2023 8: 40 AM PROFILE SHAPER OPERATOR 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 Not on file Not on file Last Filed Vital Signs Vital Sign Reading Time Taken Comments Blood Pressure 135/82 10/31/2023 8:08 AM CDT Pulse 83 10/31/2023 8:08 AM CDT Temperature 37.1 C (98.8 F) 10/31/2023 8:08 AM CDT Respiratory Rate 18 09/27/2023 9:39 AM CDT Oxygen Saturation 100% 10/31/2023 8:08 AM CDT Inhaled Oxygen Concentration - - Weight 78.3 kg (172 lb 9.6 oz) 10/31/2023 8:08 A M CDT Height 162.6 cm (5' 4 ) 10/31/2023 8:08 AM CDT Body Mass Index 29.63 10/31/2023 8:08 AM CDT Plan of Treatment Health Maintenance Due Date Last Done Comments Annual Physical 1984 Hepatitis C 09/20/1999 DTaP, Tdap and Td Vaccines ( 1 - Tdap) 2000 Hepatitis B Vaccines (1 of 3 - 19+ 3-dose series) 2000 COVID-19 Vaccine (2023-2 5 season) 2023 06/06/2021, 06/01/2020, 05/12/2020 Influenza Adult (#1) 2023 11/15/2022, 01/27/2012 PHQ-2 (Physician [place]) 02/22/2024 Mammogram Screening 02/13/2026 02/14/2024 HPV Vaccines Aged Out No longer eligi ble based on patient's age to complete this topic Meningococcal B Vaccine Aged Out No l onger eligible based on patient's age to complete this topic Meningococcal Vaccine Aged Out No jeremiah sandra eligible based on patient's age to complete this topic Pneumococcal Vaccine: Pediatrics (0 to 5 Years) and At-Risk Patients (6 to 64 Years) Aged Out No longer eligible b ased on patient's age to complete this topic RSV Immunizations Under 20 Months Aged Out No longer eligible b ased on patient's age to complete this topic Procedures Procedure Name Priority Date/Time Associated Diagnosis Comments MG DIAG W LIZ BILAT DIGI STAT 02/14/2024 8:16 AM PROFILE SHAPER OPERATOR Breast pain, left from Last 3 Months Results * MG DIAG W LIZ BILAT DIGI (02/14/2024 8:16 AM PROFILE SHAPER OPERATOR) Anatomical Region Laterality Modality Breast Bilateral Mammography 02/14/2024 8:32 AM PROFILE SHAPER OPERATOR Impressions 02/14/2024 8:35 AM PROFILE SHAPER OPERATOR =====IMPRESSION:===== No mammographic findings suggestive of malignancy ASSESSMENT: ACR BI-RADS 2 - BENIGN FINDING(S) Recommendation: 1: Routine Screening Bilateral Ordered By: LICHA KAY Interpreted By: González Higginbotham MD, 02/14/2024 8:32 AM Narrative 02/14/2024 8:35 AM PROFILE SHAPER OPERATOR [facility] [address] [place] [address] EXAMINATION: Digital bilateral diagnostic mammogram with 3-D tomography EXAM DATE/TIME: 02/14/2024 7:54 AM REASON FOR EXAM: Left breast pain. Family history of breast cancer in her mother and sister. COMPARISON: None. TECHNIQUE: Digital diagnostic mammography of both breasts was performed in addition to 3-D Tomosynthesis technique. This study was read with the assistance of a computer-aided detection system. TISSUE DENSITY: There are scattered areas of fibroglandular density. FINDINGS: The breast parenchymal pattern is grossly symmetric. There are no suspicious calcifications, masses, architectural distortion or skin thickening on either side. Licha Kay DO MAMMO Final Result from Last 3 Months Insurance Care Teams Leg Man Relationship Specialty Start Date End Date [place], Licha A, DO [address] [place] [address] PCP - General INTERNAL MEDICINE 03/11/23
--- OUTSIDE RECORDS SUMMARY | 2024-04-16 14:38 | XMS_ITS | Encounter Summary ---
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 Gender Identity Not on file Sexual Orientation Not on file documented as of this encounter Plan of Treatment Pending Results Name Type Priority Associated Diagnoses Date /Time Uric acid Lab Routine 04/16/2024 12: 06 PM [employer]ER [employer] MACHINE OPERATOR Urinalysis reflex to microscopic Lab Routine 04/16/2024 12:06 PM P[employer]ER [employer] MACHINE OPERATOR TSH Lab Routine 04/16/2024 12: 06 PM [employer] MACHINE OPERATOR Erythrocyte sedimentation rate Lab Routine 04/16/2024 12 :06 PM [employer] MACHINE OPERATOR Rheumatoid factor Lab Routine 025 12:06 PM P[employer]ER [employer] MACHINE OPERATOR Hepatitis panel, acute Blood Microbiology Routine 04/16/2024 12:06 PM [employer] MACHINE OPERATOR Hepatitis B surface antibody (immune status) Blood Microbiology Routine 04/16/2024 12:06 PM P[employer] MACHINE OPERATOR IgG Lab Routine 04/16/2024 12: 06 PM P[employer]ER [employer] MACHINE OPERATOR IgA Lab Routine 04/16/2024 12: 06 PM P[employer]ER [employer]ODU[employer] MACHINE OPERATOR CRP (acute phase) Lab Routine 025 12:06 PM P[employer]ER [employer] MACHINE OPERATOR CBC with auto differential Lab Routine 04/16/2024 12:06 PM P[employer] MACHINE OPERATOR Comprehensive metabolic panel Lab Routine 04/16/2024 12:06 PM P[employer] MACHINE OPERATOR Differential, auto Lab Routine 2024 12:06 PM P[employer]ER [employer] MACHINE OPERATOR Phosphorus Lab Routine 04/16/2024 12: 06 PM P[employer]ER [employer] MACHINE OPERATOR Scheduled Orders Name Type Priority Associated Diagnoses Orde r Schedule Angiotensin converting enzyme Lab Routine Ordered: 04/16/2024 TB test, quantiferon gold Lab Routine Ordered: 04/16/2024 Cyclic citrul peptide antibody, IgG Lab Routine Ordered: 025 documented as of this encounter Visit Diagnoses Not on filedocumented in this encounter Care Teams Carton Wrapper Relationship Specialty Start Date End Date Mallory Kay DO PCP - General Internal Medicine 03/10/23 documented as of this encounter
--- OUTSIDE RECORDS SUMMARY | 2024-04-16 14:38 | XMS_ITS | Continuity of Care Document ---
Author Organization [facility] [place] Address [address] [place] [address] Phone Care Team Providers Care Environmental Scientist Name Role Phone Mallory Kay DO Unavailable Unavailable Allergies, Adverse Reactions, Alerts Substance Reaction Status Criticality TIZANIDINE HCL body stiffness Active High phenobarbital Active No Information Medications Medication Instructions Dosage Effective Dates (start - stop) Status Comments levETIRAcetam 500 MG Oral Tablet Take 2 tablets by mouth twice daily - Active Ubrelvy 100 MG Oral Tablet TAKE 1 TAB BY MOUTH ONCE NEEDED FOR HEADACHE. MAY REPEAT ONCE AFTER 2 HOURS IF NEEDED. MAX 2 TABS PER DAY - Active DULoxetine HCl 60 MG Oral Capsule Delayed Release Particles Take 1 capsule by mouth once daily - Active gabapentin 300 mg capsule TAKE 1 CAPSULE BY MOUTH IN MORNING AND AFTERNOON AND 2 CAPSULES AT BEDTIME - Active fluconazole 150 mg tablet take 1 tablet by oral route once 150 MG - Active hydroxyzine HCl 25 mg tablet take 1-2 tablet by oral route 3 times every day as needed for anxiety. - Active LAMOTRIGINE 100 MG TABLET TAKE 1 TABLET BY MOUTH TWICE A DAY - Active Lamictal 200 mg tablet take 1 tablet by oral route every day at bedtime - Active omeprazole 40 mg capsule,delayed release take 1 capsule by oral route every day before a meal 40 MG - Active Procedures Procedure Date OFFICE POFBT-WNP-HXRMEVVU ANTINUCLEAR ANTIBODIES (MELISSA) C-REACTIVE PROTEIN (CRP) GENERAL HEALTH PANEL CYCLIC CITRULLINE PEPTIDE (CCP) 024 RHEUMATOID FACTOR: QN RBC SED RATE, AUTOMATED IMMUN ADMIN (INC PERCUTANEOUS) SINGLE, F IRST INJ INFLUENZA VACCINE, 0.5mL DOSAGE; FLUZONE ROUTINE VENIPUNCTURE [place] OFFICE [id number] BODY MASS INDEX DOCD SYST BP LT 130 MM HG DIAST BP < 80 MM HG OFFICE [id number]-[id number] BODY MASS INDEX DOCD SYST BP LT 130 MM HG DIAST BP < 80 MM HG Pt inelig neg scrn depres OFFICE [id number]-[id number] BODY MASS INDEX DOCD SYST BP GE 130 - 139MM HG DIAST BP 80-89 MM HG OFFICE [id number] OFFICE [id number]-[id number] BODY MASS INDEX DOCD SYST BP LT 130 MM HG DIAST BP < 80 MM HG DSCHRG MED/CURRENT MED MERGE OFFICE [id number] BODY MASS INDEX DOCD SYST BP LT 130 MM HG DIAST BP < 80 MM HG FORM CHARGE GENERAL HEALTH PANEL ROUTINE VENIPUNCTURE IL OFFICE RLWOH-FQB-SOOQIUMO BODY MASS INDEX DOCD SYST BP LT 130 MM HG DIAST BP < 80 MM HG Brief Emotional/Behavioral A ssessment, With Scoring/Doct, Per Stndrd Instrument Brief Emotional/Behavioral A ssessment, With Scoring/Doct, Per Stndrd Instrument Clin depression screen doc OFFICE [id number]-[id number]-MED BODY MASS INDEX DOCD SYST BP LT 130 MM HG DIAST BP < 80 MM HG Advance Directives Directive Yes / No Effective Date File Name No Information Encounters Encounter Description Practice Location Reason(s) For Visit Diagnoses Date Provider Providers Copied on Encounter [facility], [address], [place], [place], [address] , tel: [phone] [facility] No Information 5 Eliza Mallory. [address] [place] [address], [id number] , . tel: [phone] [facility], [address], [place], [place], [address] , tel: [phone] [facility] No Information 5 Dinesh Gaylin. [address] [place] [address], [facility], . tel: [phone] [facility], [address], [place], [place], [address] , tel: [phone] [facility] No Information 5 Eliza Mallory. [address] [place] [address], [id number] , [place]. tel: [phone] [facility], [address], [place], [place], [address] , tel: [phone] [facility] FibromyalgiaTinea unguium 5 Eliza Mallory. [address] [place] [address], [id number] , [place]. tel: [phone] [facility], [address], [place], [place], [address] , [place] tel: [phone] [facility] No Information 4 Eliza Tejada. [address] [place] [address], [id number] , [place]. tel: [phone] [facility], [address], [place], [place], [address] , [place] tel: [phone] [facility] Encounter for screening mammogram for malignant neoplasm of breastBreast pain, left 4 Eliza Tejada. [address] [place] [address], [id number] , [place]. tel: [phone] OFFICE XHGLU-WUP-VT [facility], [address], [place], [place], [address] , [place] tel: [phone] [facility] Chronic Conditions (chief complaint)o ther (chief complaint) Major depressive disorder, recurrent, moderateYeast infectionMemory changesPolyarthral ladonna 4 Hearn Rosi. [address] [place] [address], [id number] , [place]. tel: [phone] Referring Provider: Mallory Ross, [address] [place] [address], [address] . tel:[phone] [facility], [address], [place], [place], [address] , [place] tel: [phone] [facility] History of pneumonia 4 Eliza Tejada. [address] [place] [address], [id number] , [place]. tel: [phone] [facility], [address], [place], [place], [address] , [place] tel: [phone] [facility] No Information 4 Francisco Betts. [address] [address], [place], [place], [id number] , [place]. tel: [phone] Referring Provider: Mahesh Montiel, [address] [place] [address], [address]. tel:[phone] OFFICE VZULR-WRP-AI [facility], [address], [place], [place], [address] , tel: [phone] [facility] 3 month (chief complaint)C hronic Conditions (chief complaint)c hronic conditions (chief complaint) Body mass index [BMI] 27.0-27.9, adultOther epilepsy, intractable, without status epilepticusMigrain e with aura, not intractable, without status migrainosusMajor depressive disorder, recurrent, moderateFibromyalg iaRadiculopathy, cervical regionRadiculopath y, lumbar regionPolyarthralg ia 4 Dinesh Aragon. [address] [place] [address], [address], . tel: [phone] Referring Provider: Mallory Ross, [address] [place] [address], [address] . tel:[phone] [facility], [address], [place], [place], [address] , [place] tel: [phone] [facility] Low back pain, unspecified back pain laterality, unspecified chronicity, unspecified whether sciatica presentFibromyalgi a 4 Eliza Tejada. [address] [place] [address], [id number] , [place]. tel: [phone] [facility], [address], [place], [place], [address] , tel: [phone] [facility] No Information 4 Dinesh Aragon. [address] [place] [address], [address], . tel: [phone] OFFICE QFKBT-ZBY-SW [facility], [address], [place], [place], [address] , tel: [phone] [facility] 6 week (chief complaint)C hronic Conditions (chief complaint)c hronic conditions (chief complaint) Body mass index [BMI] 25.0-25.9, adultOther epilepsy, intractable, without status epilepticusMajor depressive disorder, recurrent, moderateAnxiety disorder, unspecifiedRadicul opathy, cervical regionLumbar radiculopathy, rightEncounter for screening mammogram for malignant neoplasm of breast Josh- 4 Dinesh Aragon. [address] [place] [address], [address], . tel: [phone] Referring Provider: Mallory Ross, [address] [place] [address], [address] . tel:[phone] OFFICE HCMHW-RVN-ND TAILED [facility], [address], [place], [place], [address] , tel: [phone] [facility] Follow-Up (chief complaint)a bdominal pain (chief complaint)b ack pain (chief complaint)C hronic Conditions (chief complaint) Radiculopathy, cervical regionOther epilepsy, intractable, without status epilepticusFibromy algiaMigraine with aura, not intractable, without status migrainosusBody mass index [BMI] 23.0-23.9, adult May- 4 Eliza Tejada. [address] [place] [address], [id number] , [place]. tel: [phone] Referring Provider: Mallory Ross, [address] [place] [address], [address] . tel:[phone] [facility], [address], [place], [place], [address] , [place] tel: [phone] [facility] Cervical radiculopathy 4 Eliza Tejada. [address] [place] [address], [id number] , [place]. tel: [phone] [facility] [address], [place], [place], [address] , [place] tel: [phone] [facility] Telehealth (chief complaint)C hronic Conditions (chief complaint) FibromyalgiaOther epilepsy, intractable, without status epilepticus 4 Dinesh Aragon. [address] [place] [address], [address], . tel: [phone] Referring Provider: Mallory Ross, [address] [place] [address], [address] . tel:[phone] OFFICE EXNKW-XQF-VG [facility], [address], [place], [place], [address] , [place] tel: [phone] [facility] 3 week (chief complaint)C hronic Conditions (chief complaint) MDD (major depressive disorder), recurrent episode, moderateMigraine with aura and without status migrainosus, not intractableFibromy algiaHeart palpitationsGAD (generalized anxiety disorder)Other epilepsy, intractable, without status epilepticus 4 Dinesh Aragon. [address] [place] [address], [address], [place]. tel: [phone] Referring Provider: Mallory Ross, [address] [place] [address], [address] . tel:[phone] [facility], [address], [place], [place], [address] , [place] tel: [phone] [facility] No Information 4 Hearn Rosi. [address] [place] [address], [id number] , [place]. tel: [phone] OFFICE IMBBD-SSR-YG [facility], [address], [place], [place], [address] , [place] tel: [phone] [facility] ER fu (chief complaint)C hronic Conditions (chief complaint) Heart palpitationsMigrai ne with aura and without status migrainosus, not intractableGastric ulcer, unspecified chronicity, unspecified whether gastric ulcer hemorrhage or perforation presentNonintracta ble epilepsy with status epilepticus, unspecified epilepsy typeBrain fog Fe 4 Dinesh Aragon. [address] [place] [address], [address], [place]. tel: [phone] Referring Provider: Mallory Ross, [address] [place] [address], [address] . tel:[phone] [facility], [address], [place], [place], [address] , tel: [phone] [facility] No Information 0 4 Eliza Tejada. [address] [place] [address], [id number] , [place]. tel: [phone] [facility], [address], [place], [place], [address] , tel: [phone] [facility] No Information 0 4 Francisco Betts. [address], [id number] , . tel: [phone] Referring Provider: Mahesh Montiel, [address] [place] [address], [address]. tel:[phone] OFFICE XKYVI-NZD-MV [facility], [address], [place], [place], [address] , tel: [phone] [facility] Fatigue (chief complaint) Other fatigueGeneralized weaknessBody mass index [BMI] 23.0-23.9, adultGastric ulcer, unspecified chronicity, unspecified whether gastric ulcer hemorrhage or perforation presentMigraine with aura and without status migrainosus, not intractableGAD (generalized anxiety disorder)MDD (major depressive disorder), recurrent episode, moderateNonintract able epilepsy with status epilepticus, unspecified epilepsy typeBrain fogPFO (patent foramen ovale) 0 4 Dinesh Aragon. [address] [place] [address], [address], [place]. tel: [phone] Referring Provider: Mallory Ross, [address] [place] [address], [address] . tel:[phone] OFFICE FEWDC-BAD-WU -MED [facility], [address], [place], [place], [address] , [place] tel: [phone] [facility] Laura new pt (chief complaint) Body mass index [BMI] 23.0-23.9, adultNonintractabl e epilepsy with status epilepticus, unspecified epilepsy typeDizzinessGAD (generalized anxiety disorder)MDD (major depressive disorder), recurrent episode, moderateMigraine with aura and without status migrainosus, not intractableAcute gastritis, presence of bleeding unspecified, unspecified gastritis typeGastric ulcer, unspecified chronicity, unspecified whether gastric ulcer hemorrhage or perforation presentEncounter for screening mammogram for malignant neoplasm of breast 3 Nadiya Aranda. [address] [place] [address], [id number] , . tel: [phone] Referring Provider: Mallory Ross, [address] [place] [address], [address] . tel:[phone] Family History Family Member Type Diagnosis Age At Onset No Information Immunizations Vaccine Date Status Comments Fluzone Trivalent, split virus, 0.5mL dosage administered Source: New Immuniza tion Record Payers Payer name Insurance type Covered alliance party ID Authoriza tion(s) [employer] CI [id number] [employer] CI [id number] Social History Type Description Quantity Date Captured Comments Alcohol Use Details Unknown Caffeine Use Details Unknown Tobacco Use Status No Information Smoking Status No Information Sex Female Sexual Orientation Straight or heterosexual Gender Identity Female Chief Complaint And Reason For Visit No Information Reason For Referral Reason For Referral No Information Plan Of Treatment Date Type Action Status Goal Dietary manageme nt education, guidance, and counseling completed Goal Dietary manageme nt education, guidance, and counseling completed Goal Dietary manageme nt education, guidance, and counseling completed Goal Dietary manageme nt education, guidance, and counseling completed Referral Ordered: Dr. Subhash Corey -Rheumatology (related to Fibromyalgia) ordered Referral Ordered: [facility] / Dr. Chiu -Podiatry (related to Tinea unguium) ordered Referral Referred To: [facility] / Dr. Chiu Ordered: Referrals: Podiatry. [facility] / Dr. Chiu. Evaluation/diagnostic/treatment - Level 3 ordered Referral Referred To: Dr. Subhash Corey Ordered: Referrals: Rheumatology. Dr. Subhash Corey. Evaluation/diagnostic/treatment - Level 3 ordered Referral Referred To: [address] [place], [place], [id number] Ordered: DIAGNOSTIC MAMMOGRAM (CAD) ONE BREAST Appointment date/timeframe: 05/03/2024 ordered Referral Referred To: [address] [place], [place], [phone] Ordered: DIAGNOSTIC MAMMOGRAM (CAD) BOTH BREASTS Appointment date/timeframe: 05/03/2024 ordered Referral Referred To: [facility] Ordered: Referrals: [facility] Appointment date/timeframe: 04/24/2024 ordered Referral Referred To: [address] [place] [address] [place], [phone] Ordered: Chest x-ray, PA and lateral Appointment date/timeframe: 04/07/2024 ordered Referral Referred To: Freda Ott [facility]
[address] [place], [phone] Ordered: Referrals: Pain Medicine. Freda Ott. Evaluation/diagnostic/treatment - Level 3 Appointment date/timeframe: 11/09/2023 ordered Referral Referred To: [address] [place] [address], [id number] [phone] Ordered: SCREENING MAMMOGRAM (CAD) Appointment date/timeframe: 11/02/2023 ordered Referral Referred To: Freda Ott [facility]
[address] [place], [phone] Ordered: Referrals: Anesthesiology. Freda Ott. Evaluation/diagnostic/treatment - Level 3 ordered Referral Ordered: SCREENING MAMMOGRAM (CAD) Bilateral breast Appointment date/timeframe: 2023 ordered Referral Referred To: Dr. Miley Mcgill Ordered: Referrals: Neurology. Dr. Miley Mcgill. Evaluation/diagnostic/treatment - Level 3 Appointment date/timeframe: 04/22/2023 ordered Appointment Jamila Hall BOOKED History Of Present Illness Encounter Date Complaint History Of Prese nt Illness Chronic Conditions *See Chronic Conditions HPI other Patient reports cognition changes over the last few months likely related to her fibromyalgia.She is having an issue with managing her medications.Both the patient and her were in agreements that he would oversee medications due to this.She also reports developing an yeast infection related to recent antibiotics. 3 month Here with son fo r follow-up.She tells me she was laid off from her job but did get a good severance pay.She has been having a lot of increased pain and this is causing trouble with sleeping.She has found comfort in joining fibromyalgia support group online. 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 She tells me that she was recently laid off from work. They are now getting legal involvement due to wrongful termination.She is getting more phone calls and is anxious on the phone. She has trouble with her words and unable to answer questions. She cries, gets hot. No presyncopal symptoms. Asking about benzodiazepine. Previously took 3 mg of Ativan as needed.MRI lumbar - Dr. Ott.neck injection 17 of this monthhad lumbar MRI on Tuesday.Told Dr. Ott about hip and she ordered lumbar MRI.Lumbar MRI consistent with degenerative changes, multilevel disc bulging and foraminal stenosis, mild in nature.Has been trouble with walking.Had severe pain in her right hip the other day. Tempted to use a cane. Has been trying to stay busy with housework. Walking to stay active. Chronic Conditions *See Chronic Conditions HPI back pain Additional infor matgarcía: pain starts in the neck and feels like it is compressing on her shoulderspt started at [facility] left after 2 hours of waiting and went to [facility] in [facility]. Hospital Follow-Up The patient w as seen today for a hospital follow- up visit. abdominal pain Chronic Conditions *See Chronic Conditions HPI Telehealth I provided this telemedicine visit with real-time audio and video. The patient gave informed consent for the use of telemedicine for this visit. Pt presents on [employer] platform via audio and visual interaction. Patient was located in their car driving in [place] and I was located at the office in [place], [place]. Patient has diagnosis of fibromyalgia and is needing reasonable accommodation at work. Currently she is required to lift at least 50 to 150 pounds multiple times a day. She also has underlying seizure disorder.She has a diagnosis of fibromyalgia and has had several flares over the years. These flares prevent her from the ability to focus, movement to a certain degree due to widespread musculoskeletal pain, sleep and mood dysregulation.We reviewed the paperwork that needs to be submitted to her employer together.Total face to face encounter time was 22 minutes Chronic Conditions *See Chronic Conditions HPI Chronic Conditions *See Chronic Conditions HPI 3 week Pt is here for 2 weeks f/uShe was seen for ER f/u on 04.20. She presented to [facility] in [place] on April 15 due to heart palpitations. In the emergency room she reported that her Apple Watch noted that she had atrial fibrillation. EKG unremarkable and workup negative.She did wear holter and did stress test that were negative. We do not have those records.She still has heart palpitations occasionally, none while in the office. Not on medication. Has follow up with cardiology but she is unsure if she will go since she was told the tests were negative and she will only get time off work to see neurologist.Mammo not scheduled - pt has a lot of appointments Pushed mammo order to August ER fu Patient is here for an emergency room follow-up. She is here with her . She presented to [facility] in [place] on April 15 due to heart palpitations. In the emergency room she reported that her Apple Watch noted that she had atrial fibrillation. EKG unremarkable and workup. She was referred to cardiology to wear a Holter monitor.Saw cardiology Tuesday - [facility] and wore a holter for 1 day but phone fore monitor started to malfunction and now she is waiting for the second one. She has not had any more episodes.Having trouble contacting Neurologist office about ADA and spouses FMLA paperwork Chronic Conditions *See Chronic Conditions HPI Fatigue Patient is here as an add-on to discuss extreme fatigue, brain fog, weakness and migraines. She has a history of epilepsy, major depression, anxiety, migraines and gastric ulcer. She went to the emergency room at [facility] on March 10 for similar symptoms along with left sided hemiparesis and was told she did not have a stroke. She has an appointment on 05 April with neurology.Epilepsy–grand mal seizures since childhood. She thinks she had a petit mall seizure last week. Taking 1000 mg of Keppra, 100 mg Lamictal twice a day with an additional 200 mg at night.She used to see neurology at [facility] but was dissatisfied with her care and is reestablishing as stated above.For anxiety depression she is currently taking 20 mg of Lexapro.She is not suicidal or homicidal. She is getting on April 06. Her son moved out of the home. She is having increased stress and she thinks that she is having a flareup of MS.She is under the impression that she has MS. she was recently hospitalized in October after syncopal episode. 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 Her head CT showed 2 narrowing veins in her brain and the patient portal states her lumbar puncture results were consistent with MS. 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 She is on Topamax for migraine and she also takes Ubrelvy as needed.She is unable to take ibuprofen due to history of gastric ulcer. She follows up with GI. She takes omeprazole. She denies any abdominal pain.After office visit I was able to review previous medical records her previous doctor notated that she has a prior diagnosis of empty sella syndrome dating January 2020.Plan indicating that headaches that were reported at that visit could be from empty sella syndrome with the neurology referral in process.I was also able to review previous labs from [facility] including CSF sampling from 2020 and 2022. She was under the impression that she had an abnormal CSF from LP with evidence of MS.The only abnormality I could see was a mildly elevated CSF protein in 2020, elevated lymphocyte count at 120 23 and 93 in 2020. A low CSF monocyte at 5LCSF IgG absentSerum IgG was 922CSF IgG normal at 0.52.Negative Lyme, negative cryptococcus, Precious-Quintanilla, West Nile RNAShe had a normal MRV of the brain dating November 16, 2022MRI, MR brain/brainstem with and without contrast from same date Impression normal brain.I was also able to find echocardiogram from October 2022 with suspected PFO by agitated saline imaging with a small right to left shunt. EF estimated at 60 to 65% with no significant valvular disease.patient is interested in seeing cardiology at [facility]. new pt Patient presents to office to establish care as a new patient.Previous PCP: Dr Mallory FanThe patient is single and lives at home with her 17-year-old son. 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 She also has a 22-year-old son and 2 grandchildren.The patient was recently hospitalized in October after syncopal episode. 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 She states that her head CT showed 2 narrowing veins in her brain and her patient portal states her lumbar puncture results were consistent with MS. She is frustrated as no one has explained the results to her. is under the care urology but is not satisfied with care. Reports another incident of passing out which occurred in November in the middle the night when she got up to go to the restroom. She denies other instances. The patient had an echocardiogram and a Holter monitor but did not receive results of these.Specialists: Dr Mccann (Neuro), Rafal Barreto NP (GI)Allergies: Zanaflex, phenobarbitalDiagnoses: migraines, heart murmur, 2 narrowing veins in her brain, epilepsyMDD/DENISE: reports a longstanding hx with anxiety and depression but has had worsening issues related to medical issues after hospitalization in Oct. does not feel Lexapro was optimizing her depression and anxiety. She denies suicidal and homicidal ideation.gastritis: is being managed by GI. states EGD/cscope showed gastritis, ulcers, and duodenitis. She was advised to start omeprazole but did not do so as she has taken this in the past and it was not helping with her abdominal pain. She is scheduled for CT scan of the abdomen and pelvis on Tuesday at [place].migraines: issues since age 16. reports daily headaches and migraines once a week. is taking Topamax but not able to increase morning dose d/y drowsiness. take Ubrelvy for abortive purposes. reports nausea, vomiting, and photophobia with migrainesEpilepsy: grand mal seizures since childhood. reports last seizure was in November but prior to this had been over year. is taking Keppra and Lamictal. states she is not currently drivingSurgeries: appendectomy, hysterectomy w/ unilateral oophorectomy, 2 c-sections, D and CFamily hx:Son ([place]): SVT, HTN, anxiety, depressionSon: hear murmurGranddaughter: seizuresMother: age 72 d/t HF, COPD (smoker), alcoholism, CAD, MDD, anxiety, migraines, brain tumor and aneurysmFather: alcoholism, HTN, DM, diverticulitis, CAD w/ stentingSister: age 47, alcoholism, OSASister: age 46, CABG x 4Sister: aliveBrother: HTN, DDD, Brother: livingMaternal grandmother: , CVA, NH, HFScreenings:Colorectal screening - 01/12/2023Mammogram: noPap: s/p hysterectomyEye exam Dec 2022Immunizations:Flu - yesCOVID - yesTetanus - yesTobacco: noAlcohol: noCaffeine: noExercise: deniesCurrent concerns: pt has had many medical issues and has not had anyone explain or go over problems with her Functional Status Date Functional Assessmen t No Information Instructions Date Instruction Additional Infor mation I will send an order for a cane Related to Polyarthralgia This is likely relat ed to your fibromyalgia and poorly managed depression.I would recommend her oversee your medications to make sure that you are taking them as prescribed Related to Memory changes I sent prescription for Diflucan to the pharmacy.You can also start taking a daily probiotic to help in addition to your Monistat and Azo.Please call us if symptoms do not improve Related to Yeast infection You are interested i n establishing with psychiatry.[facility] behavioral health walk-in clinic is open Tuesday - Tuesday 8 to 5.[address] [place] [id number]: [phone] options [facility] [phone] call if you need additional recommendations.Please call questions or concerns prior to next appointment.Follow-up again in 2 to 3 months Related to Major depressive disorder, recurrent, moderate Disease process Autoimmune workup wi ll be done.Please call me with an update in a couple weeks with how you are doing on the increased gabapentin dose.Call with any questions or concernsFlu shot todayReturn in 2 to 3 months Related to Polyarthralgia As above. Related to Radic ulopathy, cervical region We will rule out aut oimmune process.We will hold off referral for rheumatology if your lab workup is negative today and focus on adjusting the gabapentin first before changing the duloxetine dose.We discussed the importance of staying active.You can increase the gabapentin slowly to your pain comfort.If you feel that 600 mg at a time is too much I could always send in 100 mg capsules to add to the 300.Please let me know if you have any further questions or need refills. Related to Fibromyalgia Please let me know i f you would like me to refer you to a counselor.Our behavioral health team can contact you with recommendations.We will hold off increasing the duloxetine and focus on managing your fibromyalgia pain and sleeping first.If your depression worsens or changes in any way please let me know. Related to Major depressive disorder, recurrent, moderate As above.Follow-up w ith pain management as needed. Related to Radiculopathy, lumbar region Continue on current medication and follow with neurology. Related to Other epilepsy, intractable, without status epilepticus Continue on current medication and follow with neurology. Related to Migraine with aura, not intractable, without status migrainosus Giving encouragement to exercise Related to Body mass index (BMI) 27.0-27.9, adult Disease process Dietary management e ducation, guidance, and counseling Related to Body mass index (BMI) 27.0-27.9, adult good luck with injec tions next weekfollow with Dr. Ott Related to Radiculopathy, cervical region ok to buy a cane ove r the counterfollow with Dr. Ott.back exercises givenCall with any questions or concernsno labs todayreturn in 3 months Related to Lumbar radiculopathy, right continue on duloxeti necall if depression worsens Related to Major depressive disorder, recurrent, moderate continue on current medication and follow with Dr. Beasley Related to Other epilepsy, intractable, without status epilepticus we will not change d uloxetine dose.I will let you know about as needed benzodiazepine Related to Anxiety disorder, unspecified Dietary management e ducation, guidance, and counseling Related to Body mass index (BMI) 25.0-25.9, adult Disease process Giving encouragement to exercise Related to Body mass index (BMI) 25.0-25.9, adult continue with the cu rrent medication and keep scheduled follow up with neurology Related to Migraine with aura, not intractable, without status migrainosus I reviewed with you that Fibromyalgia is a diagnosis of exclusion.Fibromyalgia is a condition that causes pain all over the body, also called widespread pain. Fibromyalgia also causes sleep problems, fatigue, and emotional and mental distress. People with fibromyalgia may be more sensitive to pain than people without fibromyalgia. This is called abnormal pain perception processing. Fibromyalgia affects about 4 million [place] adults, about 2% of the adult population. The cause of fibromyalgia is not known, but it can be effectively treated and managed. I would recommend continuing with the duloxetine and increasing to 60 mg daily in 1-2 weeks if you have no improvement in your painsee above for pain management recommendations.I recommend a combination of the following: Medications, including prescription drugs and [id number] pain relievers.Aerobic exercise and muscle strengthening exercise.Stress management techniques such as meditation, yoga, and massage.Good sleep habits Cognitive behavioral therapy (CBT) to treat underlying depression. CBT is a type of talk therapy meant to change the way people act or think.Healthy diet and staying well hydratedfocus on foods that are not processed and more organic to help lower the levels of inflammation in your body Related to Fibromyalgia I would recommend in creasing the gabapentin to 300 mg by mouth three times per day.if this does not help in 1-2 weeks would recommend increasing the duloxetine to 60 mg po dailycall with concerns or side effectscontinue with the lifting restriction at workPlease call and make an appointment with pain managementI gave you the referral for Dr. Ott as well as information to make an appointment with Dr. 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, intractable, without status epilepticus Disease process Weight monitoring Related to Bod y mass index (BMI) 23.0-23.9, adult Dietary management e ducation, guidance, and counseling Related to Body mass index (BMI) 23.0-23.9, adult Continue on current medication and follow with neurology.No driving for total of 6 months.Call with any questions or concerns.No labs todayReturn as scheduled in October, sooner if needed 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 This will be faxed to your human resources contact and a copy will be mailed to you. Related to Fibromyalgia Disease process Continue on current medication and follow with neurology. 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 Related to Fibromyalgia As above. Related to DENISE ( generalized anxiety disorder) Please sign the jose rd release so I can try to get the results from your cardiac tests.Hopefully this will improve with managing the anxiety betterCall with any questions or concernsNo labs todayReturn in 6 months, sooner if needed Related to Heart palpitations Hopefully these will improve with the new medication to manage fibromyalgia better.Continue with Ubrelvy as needed. Related to Migraine with aura and without status migrainosus, not intractable We will start you on duloxetine 30 mg.I will call you in a month to see how you are doing.If you have any symptoms, side effects or worsening depression please let me know. Related to MDD (major depressive disorder), recurrent episode, moderate Disease process You are in the proce ss of getting a another Holter monitor and following with cardiology. Related to Heart palpitations For now, stay off of the Topamax. The next working diagnosis would be fibromyalgia. We have to rule out other conditions before coming to this conclusion but it sounds like you do have a lot of the symptoms. We can discuss medications like duloxetine in the near future.Call with any questions or concernsNo labs todayReturn as scheduled Related to Brain fog I will send in the p rescription for Ubrelvy.Stay off of the Topamax for now. Follow with neurology Related to Migraine with aura and without status migrainosus, not intractable Continue on omeprazo le and avoid NSAIDs. Follow-up with GI.I will send refill of this medication Related to Gastric ulcer, unspecified chronicity, unspecified whether gastric ulcer hemorrhage or perforation present Follow-up with neuro logy. I will send in the refill of your medications. EEG scheduled for the fourth.Handicap placard paperwork will be filled out. Related to Nonintractable epilepsy with status epilepticus, unspecified epilepsy type Disease process referral to [facility] will be made Related to PFO (patent foramen ovale) As above. Related to DENISE ( generalized anxiety disorder) Continue on omeprazo le and avoid NSAIDs. Follow-up with GI.Call with any questions or concernsCBC, CMP, TSH todayReturn as scheduled Related to Gastric ulcer, unspecified chronicity, unspecified whether gastric ulcer hemorrhage or perforation present Continue on the esci talopram.If your depression worsens or changes please let me know. Related to MDD (major depressive disorder), recurrent episode, moderate Continue on the Topa max and use the Ubrelvy as needed.Follow-up with neurology Related to Migraine with aura and without status migrainosus, not intractable As above. I am going to give you a couple days off. It is unclear what the cause of this is. Hopefully neurology will give you answers. Related to Generalized weakness For now, remain on c urrent seizure medication and follow-up with neurology. Related to Nonintractable epilepsy with status epilepticus, unspecified epilepsy type As above.I suggest t hat you have your chart opened up so that you can show the neurologist the results of the testing.Okay to look into marijuana to help with your symptoms. Related to Brain fog I am drawing labs to day for further evaluation.Please keep your scheduled appointment with neurology. Related to Other fatigue Disease process As stated above Related to DENISE ( generalized anxiety disorder) We will increase you r Lexapro to 20 mg daily to help with your anxiety and depression.We will hold off on prescribing Ativan due to your dizziness and fainting episodes Related to MDD (major depressive disorder), recurrent episode, moderate I will send an order for a mammogram to [facility] today Related to Body mass index [BMI] 23.0-23.9, adult I do recommend takin g omeprazole 40 mg daily due to the inflammation and ulcers that were noted with your scopes.Follow-up for your CT scan on Tuesday as scheduled Related to Acute gastritis, presence of bleeding unspecified, unspecified gastritis type Continue your Topamax and Ubrelv y Related to Migraine with aura and without status migrainosus, not intractable As stated above Related to Gastr ic ulcer, unspecified chronicity, unspecified whether gastric ulcer hemorrhage or perforation present Keep up the great wo rk with adequate hydration.Please call if you pass out again.I will review your medical records once they are received and determine next steps for follow-up.Follow-up again in 2 months.Please call us with questions or concerns prior to next appointment Related to Dizziness I will send a referr al to neurology at [facility] to get you established and assist with both the epilepsy and the migraines as well as to review your CT scan and LP results from October.Please call their office if you do not receive a phone call in a week. Related to Nonintractable epilepsy with status epilepticus, unspecified epilepsy type Dietary management e ducation, guidance, and counseling Related to Body mass index (BMI) 23.0-23.9, adult Weight monitoring Related to Bod y mass index (BMI) 23.0-23.9, adult Assessments Type Assessment Date No Information Patient Care Teams Name Effective Dates (start - stop) Status Members No Information
--- OUTSIDE RECORDS SUMMARY | 2024-04-16 14:38 | XMS_ITS | Referral Summary ---
Author Organization [facility] Address [address] [place] [address] Care Team Providers Care Journeyman Millwright Name Role Phone Mallory Kay DO Primary Care Provider [phone] Encounters Date Type Department Care Team Description 04/16/2024 11:55 AM LEAD DRIVER Lab [facility] [address] [place] [id number] Arrived 04/09/2024 11:00 AM LEAD DRIVER Office Visit [facility] at [address] [place] [phone] Azam Gordon DO Shortness of breath (Primary Dx); Left-sided chest pain from Last 3 Months Allergies Active Allergy Reactions Criticality Noted Date [...] Active Active Problems No known active problems Social History Tobacco Use Types Packs/Day Years [...] on file Legal Sex Female 10:49 PM LEAD DRIVER Gender Identity Not on file Sexual Orientation Not on file Last Filed Vital Signs Vital Sign Reading Time Taken Comments Blood Pressure 117/76 04/09/2024 10:48 AM LEAD DRIVER Pulse 70 04/09/2024 10:48 AM LEAD DRIVER Temperature 36.5 C (97.7 F) 04/09/2024 10:48 AM LEAD DRIVER Respiratory Rate 16 06/09/2023 10:25 AM CDT Oxygen Saturation 98% 04/09/2024 10:48 AM LEAD DRIVER Inhaled Oxygen Concentration - - Weight 83.2 kg (183 lb 8 oz) 04/09/2024 10:48 AM LEAD DRIVER Height 162.6 cm (5' 4 ) 04/09/2024 10:48 AM LEAD DRIVER Body Mass Index 31.5 04/09/2024 10:48 AM LEAD DRIVER Plan of Treatment Not on file Insurance LUIS [employer]GIANCE LUIS [employer] Care Teams Journeyman Millwright Relationship Specialty Start Date End Date Mallory Kay DO PCP - General Internal Medicine 03/10/23
--- OUTSIDE RECORDS SUMMARY | 2024-04-16 14:39 | XMS_ITS | Continuity of Care Document ---
Author Organization [email or web address] Address [address] [place] [address] Phone Care Team Providers Care Instructional Developer Name Role Phone Mallory Kay DO Unavailable [...] MG - Active Procedures Procedure Date OFFICE WNGFH-GUK-BNEESKEH ANTINUCLEAR ANTIBODIES (MELISSA) C-REACTIVE PROTEIN (CRP) GENERAL HEALTH PANEL CYCLIC CITRULLINE PEPTIDE (CCP) 024 RHEUMATOID FACTOR: QN RBC SED RATE, AUTOMATED IMMUN ADMIN (INC PERCUTANEOUS) SINGLE, F IRST INJ INFLUENZA VACCINE, 0.5mL DOSAGE; FLUZONE ROUTINE VENIPUNCTURE [place] OFFICE TOLHR-POM-QOGIDECJ BODY MASS INDEX DOCD SYST BP LT 130 MM HG DIAST BP < 80 MM HG OFFICE OYEGJ-SWO-CDSZYJAH BODY MASS INDEX DOCD SYST BP LT 130 MM HG DIAST BP < 80 MM HG Pt inelig neg scrn depres OFFICE DWSLK-UJD-ULBLKADV BODY MASS INDEX DOCD SYST BP GE 130 - 139MM HG DIAST BP 80-89 MM HG OFFICE RWNUN-LHG-TNULWAQU OFFICE XESFT-IAJ-ABQLXJUW BODY MASS INDEX DOCD SYST BP LT 130 MM HG DIAST BP < 80 MM HG DSCHRG MED/CURRENT MED MERGE OFFICE FZROW-QFG-GMDCICTP BODY MASS INDEX DOCD SYST BP LT 130 MM HG DIAST BP < 80 MM HG FORM CHARGE GENERAL HEALTH PANEL ROUTINE VENIPUNCTURE [place] OFFICE LYKTU-IDU-FDKLMKEV BODY MASS INDEX DOCD SYST BP LT 130 MM HG DIAST BP < 80 MM HG Brief Emotional/Behavioral A ssessment, With Scoring/Doct, Per Stndrd Instrument Brief Emotional/Behavioral A ssessment, With Scoring/Doct, Per Stndrd Instrument Clin depression screen doc OFFICE JMVJV-ZJI-ONIT-MED BODY MASS INDEX DOCD SYST BP LT 130 MM HG DIAST BP < 80 MM HG Advance Directives Directive Yes / No Effective Date File Name No Information Encounters Encounter Description Practice Location Reason(s) For Visit Diagnoses Date Provider Providers Copied on Encounter [facility], [address], [place], [place], [id number] , tel: [phone] [facility] No Information 5 Eliza Mallory. [address] [place] [address], [id number] , . tel: [phone] [facility], [address], [place], [place], [address] , tel: [phone] [facility] No Information 5 Dinesh Gaylin. [address] [place] [address], [facility], . tel: [phone] [facility], [address], [place], [place], [address] , tel: [phone] [facility] No Information 5 Eliza Mallory. [address] [place] [address], [id number] , [place]. tel: [phone] [facility], [address], [place], [place], [address] , tel: [phone] [facility] FibromyalgiaTinea unguium 5 Eliza Mallory. [address] [place] [address], [id number] , [place]. tel: [phone] [facility], [address], [place], [place], [address] , [place] tel: [phone] [facility] No Information 4 Eliza Tejada. [address] [place] [address], [id number] , [place]. tel: [phone] [facility], [address], [place], [place], [address] , [place] tel: [phone] [facility] Encounter for screening mammogram for malignant neoplasm of breastBreast pain, left 4 Eliza Tejada. [address] [place] [address], [id number] , [place]. tel: [phone] OFFICE XVPFD-BRG-FO [facility], [address], [place], [place], [address] , [place] tel: [phone] [facility] Chronic Conditions (chief complaint)o ther (chief complaint) Major depressive disorder, recurrent, moderateYeast infectionMemory changesPolyarthral ladonna 4 Hearn Rosi. [address] [place] [address], [id number] , [place]. tel: [phone] Referring Provider: Mallory Ross, [address] [place] [address], [address] . tel:[phone] [facility], [address], [place], [place], [address] , [place] tel: [phone] [facility] History of pneumonia 4 Eliza Tejada. [address] [place] [address], [id number] , [place]. tel: [phone] [facility], [address], [place], [place], [address] , [place] tel: [phone] [facility] No Information 4 Francisco Betts. [address] [address], [place], [place], [address] , [place]. tel: [phone] Referring Provider: Mahesh Montiel, [address] [place] [address], [address]. tel:[phone] OFFICE FWTZM-ZMK-LV [facility], [address], [place], [place], [address] , tel: [phone] [facility] 3 month (chief complaint)C hronic Conditions (chief complaint)c hronic conditions (chief complaint) Body mass index [BMI] 27.0-27.9, adultOther epilepsy, intractable, without status epilepticusMigrain e with aura, not intractable, without status migrainosusMajor depressive disorder, recurrent, moderateFibromyalg iaRadiculopathy, cervical regionRadiculopath y, lumbar regionPolyarthralg ia 4 Dniesh Aragon. [address] [place] [address], [address], . tel: [phone] Referring Provider: Mallory Ross, [address] [place] [address], [address] . tel:[phone] [facility], [address], [place], [place], [address] , [place] tel: [phone] [facility] Low back pain, unspecified back pain laterality, unspecified chronicity, unspecified whether sciatica presentFibromyalgi a 4 Eliza Tejada. [address] [place] [address], [id number] , [place]. tel: [phone] [facility], [address], [place], [address] , tel: [phone] [facility] No Information 4 Dinesh Aragon. [address] [place] [address], [address], . tel: [phone] OFFICE FKOBG-GHH-VA [facility], [address], [place], [place], [address] , tel: [phone] [facility] 6 week (chief complaint)C hronic Conditions (chief complaint)c hronic conditions (chief complaint) Body mass index [BMI] 25.0-25.9, adultOther epilepsy, intractable, without status epilepticusMajor depressive disorder, recurrent, moderateAnxiety disorder, unspecifiedRadicul opathy, cervical regionLumbar radiculopathy, rightEncounter for screening mammogram for malignant neoplasm of breast Josh- 4 Dinesh Aragon. [address] [place] [address], [address], . tel: [phone] Referring Provider: Mallory Ross, [address] [place] [address], [address] . tel:[phone] OFFICE XMJHW-SXX-WC TAILED [facility], [address], [place], [place], [address] , tel: [phone] [facility] Follow-Up (chief complaint)a bdominal pain (chief complaint)b ack pain (chief complaint)C hronic Conditions (chief complaint) Radiculopathy, cervical regionOther epilepsy, intractable, without status epilepticusFibromy algiaMigraine with aura, not intractable, without status migrainosusBody mass index [BMI] 23.0-23.9, adult May- 4 Eliza Tejada. [address] [place] [address], [id number] , [place]. tel: [phone] Referring Provider: Mallory Ross, [address] [place] [address], [address] . tel:[phone] [facility], [address], [place], [place], [address] , [place] tel: [phone] [facility] Cervical radiculopathy 4 Eliza Tejada. [address] [place] [address], [id number] , [place]. tel: [phone] OFFICE LVGIK-OZT-HU PANDCHI [facility], [address], [place], [place], [address] , [place] tel: [phone] [facility] Telehealth (chief complaint)C hronic Conditions (chief complaint) FibromyalgiaOther epilepsy, intractable, without status epilepticus 4 Dinesh Aragon. [address] [place] [address], [address], . tel: [phone] Referring Provider: Mallory Ross, [address] [place] [address], [address] . tel:[phone] OFFICE YGVGV-RVO-OY [facility], [address], [place], [place], [address] , [place] tel: [phone] [facility] 3 week (chief complaint)C hronic Conditions (chief complaint) MDD (major depressive disorder), recurrent episode, moderateMigraine with aura and without status migrainosus, not intractableFibromy algiaHeart palpitationsGAD (generalized anxiety disorder)Other epilepsy, intractable, without status epilepticus 4 Dinesh Aragon. [address] [place] [address], [address], [place]. tel: [phone] Referring Provider: Mallory Ross, [address] [place] [address], [address] . tel:[phone] [facility], [address], [place], [place], [address] , [place] tel: [phone] [facility] No Information 4 Hearn Rosi. [address] [place] [address], [id number] , [place]. tel: [phone] OFFICE ONRKC-ZBK-GX [facility], [address], [place], [place], [address] , [place] tel: [phone] [facility] ER fu (chief complaint)C hronic Conditions (chief complaint) Heart palpitationsMigrai ne with aura and without status migrainosus, not intractableGastric ulcer, unspecified chronicity, unspecified whether gastric ulcer hemorrhage or perforation presentNonintracta ble epilepsy with status epilepticus, unspecified epilepsy typeBrain fog Fe 4 Dinesh Aragon. [address] [place] [address], [address], [place]. tel: [phone] Referring Provider: aMllory Ross, [address] [place] [address], [address] . tel:[phone] [facility], [address], [place], [place], [address] , tel: [phone] [facility] No Information 0 4 Eliza Tejada. [address] [place] [address], [id number] , [place]. tel: [phone] [facility], [address], [place], [address] , tel: [phone] [facility] No Information 0 4 Francisco Betts. [address], [id number] , . tel: [phone] Referring Provider: Mahesh Montiel, [address] [place] [address], [address]. tel:[phone] OFFICE NSRXN-RIH-UQ [facility], [address], [place], [place], [address] , tel: [phone] [facility] Fatigue (chief complaint) Other fatigueGeneralized weaknessBody mass index [BMI] 23.0-23.9, adultGastric ulcer, unspecified chronicity, unspecified whether gastric ulcer hemorrhage or perforation presentMigraine with aura and without status migrainosus, not intractableGAD (generalized anxiety disorder)MDD (major depressive disorder), recurrent episode, moderateNonintract able epilepsy with status epilepticus, unspecified epilepsy typeBrain fogPFO (patent foramen ovale) 0 4 Dinesh Aragon. [address] [place] [address], [address], [place]. tel: [phone] Referring Provider: Mallory Ross, [address] [place] [address], [address] . tel:[phone] OFFICE LYXKP-HML-NG -MED [facility], [address], [place], [address] , [place] tel: [phone] [facility] Laura new pt (chief complaint) Body mass [...] malignant neoplasm of breast 3 Nadiya Aranda. [address] [place] [address], [id number] , . tel: [phone] Referring Provider: Mallory Ross, [address] [place] [address], [address] . tel:[phone] Family History Family Member Type Diagnosis Age At Onset No Information Immunizations Vaccine Date Status Comments Fluzone Trivalent, split virus, 0.5mL dosage administered Source: New Immuniza tion Record Payers Payer name Insurance type Covered constitution party ID Authoriza tion(s) [employer] CI [id number] C[employer] CI [id number] Social History Type Description Quantity Date Captured [...] Level 3 ordered Referral Referred To: [address] [place], [place], [id number] Ordered: DIAGNOSTIC MAMMOGRAM (CAD) ONE BREAST Appointment date/timeframe: 05/03/2024 ordered Referral Referred To: [address] [place], [place], [phone] Ordered: DIAGNOSTIC MAMMOGRAM (CAD) BOTH BREASTS Appointment date/timeframe: 05/03/2024 ordered Referral Referred To: Single [facility]ane Ordered: Referrals: [facility] Appointment date/timeframe: 04/24/2024 ordered Referral Referred To: [address] [place] [address] [address] [place], [id number] Ordered: Chest x-ray, PA and lateral Appointment date/timeframe: 04/07/2024 ordered Referral Referred To: Freda Ott [address] [facility]
[address] [place], [phone] Ordered: Referrals: Pain Medicine. Freda Ott. Evaluation/diagnostic/treatment - Level 3 Appointment date/timeframe: 11/09/2023 ordered Referral Referred To: [address] [place] [address], [id number] Ordered: SCREENING MAMMOGRAM (CAD) Appointment date/timeframe: 11/02/2023 ordered Referral Referred To: Freda Ott 3 [facility]
[address] [place], [phone] Ordered: Referrals: Anesthesiology. Freda Ott. Evaluation/diagnostic/treatment - [...] of them see pain management and also enameler and is asking if she could be [...] is compressing on her shoulderspt started at [facility] left after 2 hours of waiting and went to [facility] in [facility]. Hospital Follow-Up The patient w as seen today for a hospital follow- up visit. abdominal pain Chronic Conditions *See Chronic Conditions HPI Telehealth I provided this telemedicine visit with real-time audio and video. The patient gave informed consent for the use of telemedicine for this visit. Pt presents on [employer] platform via audio and visual interaction. Patient was located in their car driving in [place] and I was located at the office in [place], [place]. Patient has diagnosis of fibromyalgia and [...] ER f/u on 04.20. She presented to [facility] in [place] on April 15 due to heart palpitations. [...] here with her . She presented to [facility] in [place] on April 15 due to heart palpitations. In the emergency room she reported that her Apple Watch noted that she had atrial fibrillation. EKG unremarkable and workup. She was referred to cardiology to wear a Holter monitor.Saw cardiology Tuesday - [facility] and wore a holter for 1 [...] She went to the emergency room at [facility] on March 10 for similar symptoms [...] at night.She used to see neurology at [facility] but was dissatisfied with her care and [...] also able to review previous labs from [facility] including CSF sampling from 2020 and 2022. [...] disease.patient is interested in seeing cardiology at [facility]. new pt Patient presents to office to establish care as a new patient.Previous PCP: Dr Mallory FanThe patient is single and lives at home with her 17-year-old son. 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 She also has a 22-year-old son and [...] the abdomen and pelvis on Tuesday at [place].migraines: issues since age 16. reports daily headaches [...] HTN, DDD, Brother: livingMaternal grandmother: , CVA, [place], HFScreenings:Colorectal screening - 01/12/2023Mammogram: noPap: s/p hysterectomyEye [...] You are interested i n establishing with psychiatry.[facility] behavioral health walk-in clinic is open Tuesday - Tuesday 8 to [address] [place] [address]Zexkg: [phone] options [facility] [phone] call if you need additional recommendations.Please call [...] with aura, not intractable, without status migrainosus Dietary management e ducation, guidance, and counseling Related to Body mass index (BMI) 27.0-27.9, adult Giving encouragement to exercise Related to Body mass index (BMI) 27.0-27.9, adult Disease process good luck with injec tions next weekfollow [...] the following: Medications, including prescription drugs and oxjk-rhr-etokduc pain relievers.Aerobic exercise and muscle strengthening exercise.Stress [...] send an order for a mammogram to [facility] today Related to Body mass index [...] send a referr al to neurology at [facility] to get you established and assist [...]
--- OUTSIDE RECORDS SUMMARY | 2024-04-16 14:39 | XMS_ITS | Continuity of Care Document ---
Author Organization [facility] Address [address] [place] [address] Phone Care Team Providers Care Segmental Wall Installer Name Role Phone Maxime Acuña Unavailable Unavailable [...] Diagnoses Date Provider Providers Copied on Encounter [facility], [address], [place], [id number], [place] tel:[phone] [facility] No Information 6 Gurinder Swartz. [address], [place], [id number] , [place]. [phone] Office/outpa tient visit,new, mod [facility], [address], [place], [address], [place] tel:[phone] [facility] wrist (chief complaint) Strain of wrist, right, initial encounterTendinitis of right wrist 6 Gurinder Swartz. [address], [place], [address] , . tel:[phone] [facility], [address], [place], [address], tel:[phone] [facility] No Information 6 Gurinder Swartz. [address], [place], [address] , . tel:[phone] Referring Provider: Maxime Fairchild, [address] [place], [address] . tel:[phone] Family History Family Member Type Diagnosis Age At Onset Problem (finding) Family history of hyper tension Problem (finding) Family history of chronic obstructive lung disease Problem (finding) Family history of diabetes mellitus in first degree relative Problem (finding) Family history of pulmo nary emphysema Payers Payer name Insurance type Covered democrat ID Authoriza tiesmer(s) [employer] Medicaid [place] [id number] Social History Type Description Quantity Date Captured [...]
--- OUTSIDE RECORDS SUMMARY | 2024-04-17 08:00 | XMS_ITS | Referral Summary ---
Author Organization [facility] Address [address] [place] [address] Care Team Providers Care Gluing Machine Offbearer Name Role Phone Mallory Kay DO Primary Care Provider [phone]- [phone] Encounters Date Type Department Care Team Description 04/16/2024 11:55 AM DOCK ATTENDANT Lab [facility] [address] [place] [phone] Arrived 04/09/2024 11:00 AM DOCK ATTENDANT Office Visit [facility] Pulmonary at [address] [place] [phone] Azam Gordon DO Shortness of breath (Primary [...] on file Legal Sex Female 10:49 PM DOCK ATTENDANT Gender Identity Not on file Sexual Orientation Not on file Last Filed Vital Signs Vital Sign Reading Time Taken Comments Blood Pressure 117/76 04/09/2024 10:48 AM DOCK ATTENDANT Pulse 70 04/09/2024 10:48 AM DOCK ATTENDANT Temperature 36.5 C (97.7 F) 04/09/2024 10:48 AM DOCK ATTENDANT Respiratory Rate 16 06/09/2023 10:25 AM CDT Oxygen Saturation 98% 04/09/2024 10:48 AM DOCK ATTENDANT Inhaled Oxygen Concentration - - Weight 83.2 kg (183 lb 8 oz) 04/09/2024 10:48 AM DOCK ATTENDANT Height 162.6 cm (5' 4 ) 04/09/2024 10:48 AM DOCK ATTENDANT Body Mass Index 31.5 04/09/2024 10:48 AM DOCK ATTENDANT Plan of Treatment Not on file Procedures Procedure Name Priority Date/Time Associated Diagnosis Comments EGFR Routine 04/16/2024 12:06 PM DOCK ATTENDANT PHOSPHORUS Routine 04/16/2024 12:06 PM DOCK ATTENDANT DIFFERENTIAL AUTO Routine 04/16/2024 12: 06 PM DOCK ATTENDANT COMPREHENSIVE METABOLIC PANEL Routine 04/16/2024 12:06 PM DOCK ATTENDANT CBC WITH AUTO DIFFERENTIAL Routine 04/16/2024 12:06 PM DOCK ATTENDANT CRP (ACUTE PHASE) Routine 04/16/2024 12: 06 PM DOCK ATTENDANT IGA Routine 04/16/2024 12:06 PM DOCK ATTENDANT IGG Routine 04/16/2024 12:06 PM DOCK ATTENDANT RHEUMATOID FACTOR Routine 04/16/2024 12: 06 PM DOCK ATTENDANT ERYTHROCYTE SEDIMENTATION RATE Routine 04/16/2024 12:06 PM DOCK ATTENDANT TSH Routine 04/16/2024 12:06 PM DOCK ATTENDANT URINALYSIS AND REFLEX TO MICROSCOPIC Routine 04/16/2024 12:06 PM DOCK ATTENDANT URIC ACID Routine 04/16/2024 12:06 PM DOCK ATTENDANT HEPATITIS B SURFACE ANTIBODY (IMMUNE STATUS) Routine 04/16/2024 12:06 PM DOCK ATTENDANT HEPATITIS PANEL, ACUTE Routine 12:06 PM DOCK ATTENDANT from Last 3 Months Results * eGFR (04/16/2024 12:06 PM DOCK ATTENDANT) eGFR >90 >=60 mL/min/1. 73 m2 Comment: Interpretive Data Reference Interval Normal >/= 90 mL/min/1.73m2 Mildly decreased* 60 - 89 mL/min/1.73m2 Mildly to moderately decreased 45 - 59 mL/min/1.73m2 Moderately to severely decreased 30 - 44 mL/min/1.73m2 Severely decreased 15 - 29 mL/min/1.73m2 Kidney Failure < 15 mL/min/1.73m2 *Relative to young adult level Estimated glomerular filtration rate is determined by the 2020 CKD-EPI equation recommended by the National Kid[employer] (A Unifying Approach to GFR Estimation: Recommendations of the NKF-ASK Task Force on Reassessing the Inclusion of Race in Diagnosing Kidney Disease, JASN 2020). The CKD-EPI equation should not be used for patients with unstable renal function and has not been validated in children and those over 70. Current interpretive data was last reviewed 2020. Testing performed by: [address] [address] Blood 04/16/2024 12:0 6 PM DOCK ATTENDANT 04/16/2024 6:40 PM DOCK ATTENDANT Subhash Corey MD LAB BLOOD ORDERABLES Final Res ult [facility] ([place]) 1 [facility] Department [place] [address] * Differential, auto (04/16/2024 12:06 PM DOCK ATTENDANT) Neutrophil abs 4.0 1.5 - 6.5 K/cumm Comment:Testing performed by : [address] [address] Imm gran abs 0.0 0.0 - 0.1 K/cumm [facility] ([place]) Comment:Testing performed by : [address], [address] Lymphocyte abs 1.8 0.8 - 3.3 K/cumm [facility] ([place]) Comment:Testing performed by : [facility], [address] [place] [address], [address] Monocyte abs 0.4 0.2 - 0.8 K/cumm [facility] ([place]) Comment:Testing performed by : [address] [address] Eosinophil abs 0.1 0.0 - 0.5 K/cumm [facility] ([place]) Comment:Testing performed by : [address] [address] Basophil abs 0.1 0.0 - 0.1 K/cumm [facility] ([place]) Comment:Testing performed by : [address], [address] Neutrophil pct 62.5 % [facility] ([place]) Comment: Interpretive Data Percent cell count reference ranges are not reported, since discordance with absolute values may lead to misinterpretation of CBC data. Current Interpretive Data was last revised on 2017. Testing performed by: [facility], [address], [place]., [address] Imm gran pct 0.3 % [facility] ([place]) Comment: Interpretive Data Percent cell count reference ranges are not reported, since discordance with absolute values may lead to misinterpretation of CBC data. Current Interpretive Data was last revised on 2017. Testing performed by: [facility], [address] [place] [address]., [address] Lymphocyte pct 28.5 % [facility] ([place]) Comment: Interpretive Data Percent cell count reference ranges are not reported, since discordance with absolute values may lead to misinterpretation of CBC data. Current Interpretive Data was last revised on 2017. Testing performed by: [facility], [address] [place] [address]., [address] Monocyte pct 6.7 % [facility] ([place]) Comment: Interpretive Data Percent cell count reference ranges are not reported, since discordance with absolute values may lead to misinterpretation of CBC data. Current Interpretive Data was last revised on 2017. Testing performed by: [facility], [address] [place] [address]., [address] Eosinophil pct 0.9 % [facility] ([place]) Comment: Interpretive Data Percent cell count reference ranges are not reported, since discordance with absolute values may lead to misinterpretation of CBC data. Current Interpretive Data was last revised on 2017. Testing performed by: [facility], [address] [place] [address]., [address] Basophil pct 1.1 % [facility] ([place]) Comment: Interpretive Data Percent cell count reference ranges are not reported, since discordance with absolute values may lead to misinterpretation of CBC data. Current Interpretive Data was last revised on 2017. Testing performed by: [address] [address] Blood 04/16/2024 12:0 6 PM DOCK ATTENDANT 04/16/2024 12:08 PM DOCK ATTENDANT us Subhahs Corey MD LAB BLOOD ORDERABLES Final Res ult [facility] ([place]) 1 [facility] Department [place] [address] * (ABNORMAL) Urinalysis reflex to microscopic (04/16/2024 12:06 PM DOCK ATTENDANT) Color, ur Yellow Yellow Comment:Testing performed by : [address] [address] Clarity, ur Clear Clear [facility] ([place]) Comment:Testing performed by : [address], [address] Specific gravity, ur 1.005 1.003 - 1.030 [facility] ([place]) Comment:Testing performed by : [address], [address] pH, urine 5.5 [facility] ([place]) Comment: Interpretive Data U rine pH is affected by diet, medications, systemic acid-base disturbances, and renal tubular function. pH may affect urinary stone formation. For example, urine pH below 6.0 may help reduce the tendency for calcium phosphate stones and pH greater than 6.0 may reduce the tendency for uric acid stone formation. Source: [facility] [employer] Current Interpretive Data was last revised on 2017 Testing performed by: [address] [address] Protein, ur ql Negative Negative [facility] ([place]) Comment:Testing performed by : [address] [address] Glucose, ur ql Negative Negative [facility] ([place]) Comment:Testing performed by : [address] [address] Ketones, ur 1+(A) Negative [facility] ([place]) Comment:Testing performed by : [address] [address] Bilirubin, ur Negative Negative [facility] ([place]) Comment:Testing performed by : [address] [address] Blood, ur Negative Negative [facility] ([place]) Comment:Testing performed by : [address] [address] Urobilinogen, ur <2.0 <2.0 mg/dL [facility] ([place]) Comment:Testing performed by : [address] [address] Nitrite, ur Negative Negative [facility] ([place]) Comment:Testing performed by : [facility], [address] [place] [address]., [address] Leukocyte esterase, ur Negative Negative [facility] ([place]) Comment:Testing performed by : [address], [address] UA reflex comment Reflex conditions for microscopic UA not met. [facility] ([place]) Comment:Testing performed by : [facility], [address] [place] [address], [address] Urine, clean voided 04/16/2024 12:06 PM DOCK ATTENDANT 04/16/2024 12:07 PM DOCK ATTENDANT us Subhash Corey MD LAB URINE ORDERABLES Final Res ult [facility] ([place]) 1 [facility] Department [place] [address] * (ABNORMAL) CBC with auto differential (04/16/2024 12:06 PM DOCK ATTENDANT) WBC 6.4 3.8 - 9.9 K/cumm Comment:Testing performed by : [address], [address] Hgb 14.7 11.9 - 15.5 g/dL [facility] ([place]) Comment:Testing performed by : [address], [address] Hct 45.1 35.6 - 45.5 % [facility] ([place]) Comment:Testing performed by : [facility], [address] [place] [address], [address] Plt 206 150 - 400 K/cumm [facility] ([place]) Comment:Testing performed by : [address], [address] MPV 10.8 9.1 - 12.3 fL [facility] ([place]) Comment:Testing performed by : [address], [address] RBC 4.62 3.90 - 5.20 M/cumm [facility] ([place]) Comment:Testing performed by : [address], [place]., [address] MCV 97.6(H) 81.3 - 96.4 fL [facility] ([place]) Comment:Testing performed by : [address], [address] MCH 31.8 27.1 - 33.3 pg [facility] ([place]) Comment:Testing performed by : [address], [address] MCHC 32.6 32.3 - 35.7 g/dL [facility] ([place]) Comment:Testing performed by : [facility], [address] [place] [address], [address] RDW CV 11.9 11.1 - 14.9 % [facility] ([place]) Comment:Testing performed by : [facility], [address] [place] [address], [address] RDW SD 42.7 35.7 - 48.1 fL [facility] ([place]) Comment:Testing performed by : [address], [address] NRBC abs 0.00 0.00 - 0.01 K/cumm [facility] ([place]) Comment:Testing performed by : [address], [address] Blood 04/16/2024 12:0 6 PM DOCK ATTENDANT 04/16/2024 12:08 PM DOCK ATTENDANT us Subhash Corey MD LAB BLOOD ORDERABLES Final Res ult [facility] ([place]) 1 [facility] Department [place] [address] * Hepatitis panel, acute Blood (04/16/2024 12:06 PM DOCK ATTENDANT) Hep A IgM Nonreactive Nonreactive Comment: Interpretive Data: If Hep A IgM Ab is reported as Equivocal, a new sample should be drawn in two weeks for testing. Current interpretive data was last revised on 19. Testing performed by: [address], [address] Hep B core IgM Nonreactive Nonreactive C PATRI[facility]IA [facility] ([place]) Comment: Interpretive Data If HepB Core IgM Ab is reported as Equivocal, a new sample should be drawn in two weeks for testing. Current interpretive data was last revised on 19. Testing performed by: [address] [address] Hep C Ab Nonreactive Nonreactive [facility] ([place]) Comment: Interpretive Data Nonreactive: Antibodies to HCV not detected. Does NOT exclude the possibility of recent exposure to HCV. Equivocal: Equivocal for HCV antibodies. Supplemental molecular testing will be automatically performed to determine infection status in accordance with current CDC screening recommendations. Reactive: Positive for HCV antibodies. This may represent current or past HCV infection. Supplemental molecular testing will be automatically performed to determine current infection status in accordance with current CDC screening recommendations. Interpretive data was last revised on 2019. Testing performed by: [address] [address] HepBsAg Nonreactive Nonreactive [facility] ([place]) Comment:Testing performed by : [address] [address] Blood 04/16/2024 12:0 6 PM DOCK ATTENDANT 04/16/2024 12:09 PM DOCK ATTENDANT Subhash Corey MD LAB MICROBIOLOGY - GENERAL ORD ERABLES Final Result [facility] ([place]) 1 [facility] Department [place] [address] * Hepatitis B surface antibody (immune status) Blood (04/16/2024 12:06 PM DOCK ATTENDANT) Pathologist [facility] HBsAb (immune status) Nonreactive Comment: Interpretive Data Nonreactive: This result is consistent with a lack of immunity to Hepatitis B Virus when used in the setting of routine screening. Equivocal: The immune status of the individual should be further assessed, if appropriate, after consideration of clinical status, risk factors, and additional diagnostic information. Reactive: This result is consistent with immunity to Hepatitis B Virus when used in the setting of routine screening. Current interpretive data was last revised on 19. Testing performed by: [address] [place]., [address] Blood 04/16/2024 12:0 6 PM DOCK ATTENDANT 04/16/2024 12:10 PM DOCK ATTENDANT us Subhash Corey MD LAB MICROBIOLOGY - GENERAL ORD ERABLES Final Result Performing Organization Address [facility]/ZIP Co de Phone Number [facility] ([place]) 1 [place] [address] * Erythrocyte sedimentation rate (04/16/2024 12:06 PM DOCK ATTENDANT) Pathologist [facility] Erythrocyte sedimentation rate 12 1 - 20 mm/hr Comment:Testing performed by : [address], [address] Blood 04/16/2024 12:0 6 PM DOCK ATTENDANT 04/16/2024 12:08 PM DOCK ATTENDANT us Subhash Corey MD LAB BLOOD ORDERABLES Final Res ult Performing Organization Address [facility] Co de Phone Number [facility] ([place]) 1 [place] [address] * Rheumatoid factor (04/16/2024 12:06 PM DOCK ATTENDANT) Pathologist [facility] Rheumatoid factor, quant 10 <=15 IUnits/mL Comment:Testing performed by : [address], [address] Blood 04/16/2024 12:0 6 PM DOCK ATTENDANT 04/16/2024 12:07 PM DOCK ATTENDANT us Subhash Corey MD LAB BLOOD ORDERABLES Final Res ult Performing Organization Address [facility] Co de Phone Number [facility] ([place]) [address] [place] [address] * CRP (acute phase) (04/16/2024 12:06 PM DOCK ATTENDANT) Pathologist [facility] CRP <3.0 <=10.0 mg/L Comment:Testing performed by : [facility], [address] [place] [address], [address] Blood 04/16/2024 12:0 6 PM DOCK ATTENDANT 04/16/2024 12:07 PM DOCK ATTENDANT us Subhash Corey MD LAB BLOOD ORDERABLES Final Res ult [facility] ([place]) 1 [facility] [place] [address] * Uric acid (04/16/2024 12:06 PM DOCK ATTENDANT) Uric acid 3.2 2.5 - 7.0 mg/dL Comment:Testing performed by : [facility], [address] [place] [address]., [address] Blood 04/16/2024 12:0 6 PM DOCK ATTENDANT 04/16/2024 12:07 PM DOCK ATTENDANT us Subhash Corey MD LAB BLOOD ORDERABLES Final Res ult Performing Organization Address [facility]/ZIP Co de Phone Number [facility] ([place]) [address] [place] [address] * TSH (04/16/2024 12:06 PM DOCK ATTENDANT) Thyroid Stimulating Hormone 0.91 0.30 - 4.20 mcIUnit/mL Comment:Testing performed by : [facility], [address] [place] [address]., [address] Blood 04/16/2024 12:0 6 PM DOCK ATTENDANT 04/16/2024 12:07 PM DOCK ATTENDANT us Subhash Corey MD LAB BLOOD ORDERABLES Final Res ult [facility] ([place]) 1 [place] [address] * Phosphorus (04/16/2024 12:06 PM DOCK ATTENDANT) Phosphorus, pl 3.5 2.3 - 4.5 mg/dL Comment:Testing performed by : [facility], [address] [place] [address]., [address] Blood 04/16/2024 12:0 6 PM DOCK ATTENDANT 04/16/2024 12:07 PM DOCK ATTENDANT us Subhash Corey MD LAB BLOOD ORDERABLES Final Res ult [facility] ([place]) 1 [facility] [place] [address] * IgA (04/16/2024 12:06 PM DOCK ATTENDANT) Immunoglobulin A 259 70 - 400 mg/dL Comment:Testing performed by : [facility], [address] [place] [address], [address] Blood 04/16/2024 12:0 6 PM DOCK ATTENDANT 04/16/2024 12:07 PM DOCK ATTENDANT us Subhash Corey MD LAB BLOOD ORDERABLES Final Res ult Performing Organization Address [facility] Co de Phone Number [facility] ([place]) 1 [facility] [place] [address] * IgG (04/16/2024 12:06 PM DOCK ATTENDANT) Immunoglobulin G 1,142 700 - 1,600 mg/dL Comment:Testing performed by : [facility], [address] [place] [address], [place]., [address] Blood 04/16/2024 12:0 6 PM DOCK ATTENDANT 04/16/2024 12:07 PM DOCK ATTENDANT us Subhash Corey MD LAB BLOOD ORDERABLES Final Res ult [facility] ([place]) 1 [facility] [place] [address] * Comprehensive metabolic panel (04/16/2024 12:06 PM DOCK ATTENDANT) Sodium 140 135 - 145 mmol/L Comment:Testing performed by : [facility], [address] [place] [address]., [address] Potassium, pl 3.7 3.3 - 4.9 mmol/L [facility] ([place]) Comment:Testing performed by : [facility], [address] [place] [address]., [address] Chloride 102 97 - 110 mmol/L [facility] ([place]) Comment:Testing performed by : [facility], [address] [place] [address], [address] CO2 25 22 - 32 mmol/L [facility] ([place]) Comment:Testing performed by : [address], [address] Anion gap 13 2 - 15 mmol/L [facility] ([place]) Comment:Testing performed by : [address], [address] BUN 10 6 - 25 mg/dL [facility] ([place]) Comment:Testing performed by : [address], [address] Creatinine 0.75 0.60 - 1.10 mg/dL [facility] ([place]) Comment:Testing performed by : [address], [address] Glucose 84 70 - 199 mg/dL [facility] ([place]) Comment: Interpretive Data Fasting glucose >/= 126 mg/dl is diagnostic for diabetes. Fasting is defined as no caloric intake for at least 8 hours. Fasting glucose between 100 mg/dl to 125 mg/dl is diagnostic of prediabetes. In a patient with classic symptoms of hyperglycemia or hyperglycemic crisis, a random glucose >/= 200 mg/dl is diagnostic for diabetes. In the absence of unequivocal hyperglycemia, results should be confirmed by repeat testing. The classification and Diagnosis of Diabetes Diabetes Care 2021; 46: S19-S40. Current interpretive data was last revised 2022. Testing performed by: [address], [address] Calcium 9.6 8.5 - 10.3 mg/dL [facility] ([place]) Comment:Testing performed by : [address], [address] Bilirubin, total 0.4 0.1 - 1.2 mg/dL [facility] ([place]) Comment:Testing performed by : [facility], [address] [place] [address]., [address] Protein, pl 7.5 6.5 - 8.5 g/dL [facility] ([place]) Comment:Testing performed by : [facility], [address] [place] [address], [address] Albumin 4.7 3.5 - 5.0 g/dL [facility] ([place]) Comment:Testing performed by : [facility], [address] [place] [address], [address] Alk phos 66 40 - 130 Units/L [facility] ([place]) Comment:Testing performed by : [facility], [address] [place] [address], [address] ALT 20 7 - 45 Units/L [facility] ([place]) Comment:Testing performed by : [facility], [address] [place] [address], [address] AST 28 10 - 45 Units/L [facility] ([place]) Comment:Testing performed by : [facility], [address] [place] [address], [address] Blood 04/16/2024 12:0 6 PM DOCK ATTENDANT 04/16/2024 12:07 PM DOCK ATTENDANT us Subhash Corey MD LAB BLOOD ORDERABLES Final Res ult [facility] ([place]) 1 [facility] Department [place] [address] from Last 3 Months Insurance LUIS ALLEGIANCE LUIS [employer]LEGIANCE Care Teams Gluing Machine Offbearer Relationship Specialty Start Date End Date Mallory Kay DO PCP - General Internal Medicine 03/10/23
--- OUTSIDE RECORDS SUMMARY | 2024-04-17 08:00 | XMS_ITS | Continuity of Care Document ---
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 Name Role Phone Mallory Kay DO Unavailable [...] MG - Active Procedures Procedure Date OFFICE GCZJH-FHR-GBZDKICE ANTINUCLEAR ANTIBODIES (MELISSA) C-REACTIVE PROTEIN (CRP) GENERAL HEALTH PANEL CYCLIC CITRULLINE PEPTIDE (CCP) 024 RHEUMATOID FACTOR: QN RBC SED RATE, AUTOMATED IMMUN ADMIN (INC PERCUTANEOUS) SINGLE, F IRST INJ INFLUENZA VACCINE, 0.5mL DOSAGE; FLUZONE ROUTINE VENIPUNCTURE [place] OFFICE QVJVI-QUV-HKQUHLDU BODY MASS INDEX DOCD SYST BP LT 130 MM HG DIAST BP < 80 MM HG OFFICE EMFEQ-UEB-HBISRJEN BODY MASS INDEX DOCD SYST BP LT 130 MM HG DIAST BP < 80 MM HG Pt inelig neg scrn depres OFFICE TEURE-TQM-LRLBVSQM BODY MASS INDEX DOCD SYST BP GE 130 - 139MM HG DIAST BP 80-89 MM HG OFFICE XDKQD-TDQ-UOYTSTLD OFFICE MHCYU-MXJ-CSFRXRNR BODY MASS INDEX DOCD SYST BP LT 130 MM HG DIAST BP < 80 MM HG DSCHRG MED/CURRENT MED MERGE OFFICE GLIKH-ROK-NDINUHEI BODY MASS INDEX DOCD SYST BP LT 130 MM HG DIAST BP < 80 MM HG FORM CHARGE GENERAL HEALTH PANEL ROUTINE VENIPUNCTURE [place] OFFICE PWFQY-MIQ-WLPXKLZD BODY MASS INDEX DOCD SYST BP LT 130 MM HG DIAST BP < 80 MM HG Brief Emotional/Behavioral A ssessment, With Scoring/Doct, Per Stndrd Instrument Brief Emotional/Behavioral A ssessment, With Scoring/Doct, Per Stndrd Instrument Clin depression screen doc OFFICE XFTRK-RFE-VOHB-MED BODY MASS INDEX DOCD SYST BP LT 130 MM HG DIAST BP < 80 MM HG Advance Directives Directive Yes / No Effective Date File Name No Information Encounters Encounter Description Practice Location Reason(s) For Visit Diagnoses Date Provider Providers Copied on Encounter [facility], [address], [place], [place], [id number] , tel: [phone] [facility] No Information 5 Eliza Mallory. [address] [place] [address], [id number] , . tel: [phone] [facility], [address], [place], [place], [address] , tel: [phone] [facility] No Information 5 Dinesh Gaylin. [address] [place] [address], [facility], . tel: [phone] [facility], [address], [place], [place], [address] , tel: [phone] [facility] No Information 5 Eliza Mallory. [address] [place] [address], [id number] , [place]. tel: [phone] [facility], [address], [place], [place], [address] , tel: [phone] [facility] FibromyalgiaTinea unguium 5 Eliza Mallory. [address] [place] [address], [id number] , [place]. tel: [phone] [facility], [address], [place], [place], [address] , [place] tel: [phone] [facility] No Information 4 Eliza Tejada. [address] [place] [address], [id number] , [place]. tel: [phone] [facility], [address], [place], [place], [address] , [place] tel: [phone] [facility] Encounter for screening mammogram for malignant neoplasm of breastBreast pain, left 4 Eliza Tejada. [address] [place] [address], [id number] , [place]. tel: [phone] OFFICE MNLMG-OAN-QL [facility], [address], [place], [place], [address] , [place] tel: [phone] [facility] Chronic Conditions (chief complaint)o ther (chief complaint) Major depressive disorder, recurrent, moderateYeast infectionMemory changesPolyarthral ladonna 4 Hearn Rosi. [address] [place] [address], [id number] , [place]. tel: [phone] Referring Provider: Mallory Ross, [address] [place] [address], [address] . tel:[phone] [facility], [address], [place], [place], [address] , [place] tel: [phone] [facility] History of pneumonia 4 Eliza Tejada. [address] [place] [address], [id number] , [place]. tel: [phone] [facility], [address], [place], [place], [address] , [place] tel: [phone] [facility] No Information 4 Francisco Betts. [address] [address], [place], [place], [address] , [place]. tel: [phone] Referring Provider: Mahesh Montiel, [address] [place] [address], [address]. tel:[phone] OFFICE VUGAW-IZT-WA [facility], [address], [place], [place], [address] , tel: [phone] [facility] 3 month (chief complaint)C hronic Conditions (chief complaint)c hronic conditions (chief complaint) Body mass index [BMI] 27.0-27.9, adultOther epilepsy, intractable, without status epilepticusMigrain e with aura, not intractable, without status migrainosusMajor depressive disorder, recurrent, moderateFibromyalg iaRadiculopathy, cervical regionRadiculopath y, lumbar regionPolyarthralg ia 4 Dinesh Aragon. [address] [place] [address], [address], . tel: [phone] Referring Provider: Mallory Ross, [address] [place] [address], [address] . tel:[phone] [facility], [address], [place], [place], [address] , [place] tel: [phone] [facility] Low back pain, unspecified back pain laterality, unspecified chronicity, unspecified whether sciatica presentFibromyalgi a 4 Eliza Tejada. [address] [place] [address], [id number] , [place]. tel: [phone] [facility], [address], [place], [place], [address] , tel: [phone] [facility] No Information 4 Dinesh Aragon. [address] [place] [address], [address], . tel: [phone] OFFICE JPISY-XLX-VH [facility], [address], [place], [place], [address] , tel: [phone] [facility] 6 week (chief complaint)C hronic Conditions (chief complaint)c hronic conditions (chief complaint) Body mass index [BMI] 25.0-25.9, adultOther epilepsy, intractable, without status epilepticusMajor depressive disorder, recurrent, moderateAnxiety disorder, unspecifiedRadicul opathy, cervical regionLumbar radiculopathy, rightEncounter for screening mammogram for malignant neoplasm of breast Josh- 4 Dinesh Aragon. [address] [place] [address], [address], . tel: [phone] Referring Provider: Mallory Ross, [address] [place] [address], [address] . tel:[phone] OFFICE JCOQZ-TMX-RO TAILED [facility], [address], [place], [place], [address] , tel: [phone] [facility] Follow-Up (chief complaint)a bdominal pain (chief complaint)b ack pain (chief complaint)C hronic Conditions (chief complaint) Radiculopathy, cervical regionOther epilepsy, intractable, without status epilepticusFibromy algiaMigraine with aura, not intractable, without status migrainosusBody mass index [BMI] 23.0-23.9, adult May- 4 Eliza Tejada. [address] [place] [address], [id number] , [place]. tel: [phone] Referring Provider: Mallory Ross, [address] [place] [address], [address] . tel:[phone] [facility], [address], [place], [place], [address] , [place] tel: [phone] [facility] Cervical radiculopathy 4 Eliza Tejada. [address] [place] [address], [id number] , [place]. tel: [phone] [facility], [address], [place], [place], [address] , [place] tel: [phone] [facility] Telehealth (chief complaint)C hronic Conditions (chief complaint) FibromyalgiaOther epilepsy, intractable, without status epilepticus 4 Dinesh Aragon. [address] [place] [address], [address], . tel: [phone] Referring Provider: Mallory Ross, [address] [place] [address], [address] . tel:[phone] OFFICE FRMDQ-BHY-XU [facility], [address], [place], [place], [address] , [place] tel: [phone] [facility] 3 week (chief complaint)C hronic Conditions (chief complaint) MDD (major depressive disorder), recurrent episode, moderateMigraine with aura and without status migrainosus, not intractableFibromy algiaHeart palpitationsGAD (generalized anxiety disorder)Other epilepsy, intractable, without status epilepticus 4 Dinesh Aragon. [address] [place] [address], [address], [place]. tel: [phone] Referring Provider: Mallory Ross, [address] [place] [address], [address] . tel:[phone] [facility], [address], [place], [place], [address] , [place] tel: [phone] [facility] No Information 4 Hearn Rosi. [address] [place] [address], [id number] , [place]. tel: [phone] OFFICE RMSQT-CBF-NQ [facility], [address], [place], [place], [address] , [place] tel: [phone] [facility] ER fu (chief complaint)C hronic Conditions (chief complaint) Heart palpitationsMigrai ne with aura and without status migrainosus, not intractableGastric ulcer, unspecified chronicity, unspecified whether gastric ulcer hemorrhage or perforation presentNonintracta ble epilepsy with status epilepticus, unspecified epilepsy typeBrain fog Fe 4 Dinesh Aragon. [address] [place] [address], [address], [place]. tel: [phone] Referring Provider: Mallory Ross, [address] [place] [address], [address] . tel:[phone] [facility], [address], [place], [place], [address] , tel: [phone] [facility] No Information 0 4 Eliza Tejada. [address] [place] [address], [id number] , [place]. tel: [phone] [facility], [address], [place], [place], [address] , tel: [phone] [facility] No Information 0 4 Francisco Betts. [address], [id number] , . tel: [phone] Referring Provider: Mahesh Montiel, [address] [place] [address], [address]. tel:[phone] OFFICE EULNV-WJJ-TY [facility], [address], [place], [place], [address] , tel: [phone] [facility] Fatigue (chief complaint) Other fatigueGeneralized weaknessBody mass index [BMI] 23.0-23.9, adultGastric ulcer, unspecified chronicity, unspecified whether gastric ulcer hemorrhage or perforation presentMigraine with aura and without status migrainosus, not intractableGAD (generalized anxiety disorder)MDD (major depressive disorder), recurrent episode, moderateNonintract able epilepsy with status epilepticus, unspecified epilepsy typeBrain fogPFO (patent foramen ovale) 0 4 Dinesh Aragon. [address] [place] [address], [address], [place]. tel: [phone] Referring Provider: Mallory Ross, [address] [place] [address], [address] . tel:[phone] OFFICE GMOCB-YDG-QP -MED [facility], [address], [place], [place], [address] , [place] tel: [phone] [facility] Laura new pt (chief complaint) [...] malignant neoplasm of breast 3 Nadiya Aranda. [address] [place] [address], [id number] , . tel: [phone] Referring Provider: Mallory Ross, [address] [place] [address], [address] . tel:[phone] Family History Family Member Type Diagnosis Age At Onset No Information Immunizations Vaccine Date Status Comments Fluzone Trivalent, split virus, 0.5mL dosage administered Source: New Immuniza tion Record Payers Payer name Insurance type Covered republican ID Authoriza tion(s) [employer] CI [id number] [employer] CI [id number] Social History Type Description Quantity Date Captured [...] Level 3 ordered Referral Referred To: [address], [id number] Ordered: DIAGNOSTIC MAMMOGRAM (CAD) ONE BREAST Appointment date/timeframe: 05/03/2024 ordered Referral Referred To: [address], [place], [phone] Ordered: DIAGNOSTIC MAMMOGRAM (CAD) BOTH BREASTS Appointment date/timeframe: 05/03/2024 ordered Referral Referred To: [facility] Ordered: Referrals: [facility] Appointment date/timeframe: 04/24/2024 ordered Referral Referred To: [address] [place] [address] [address] [place], [phone] Ordered: Chest x-ray, PA and lateral Appointment date/timeframe: 04/07/2024 ordered Referral Referred To: Freda Ott [address] [facility]
[address] [place], [phone] Ordered: Referrals: Pain Medicine. Freda Ott. Evaluation/diagnostic/treatment - Level 3 Appointment date/timeframe: 11/09/2023 ordered Referral Referred To: [address] [place] [address], [id number] [phone] Ordered: SCREENING MAMMOGRAM (CAD) Appointment date/timeframe: 11/02/2023 ordered Referral Referred To: Freda Ott [address] [facility]
[address] [place], [phone] Ordered: Referrals: Anesthesiology. Freda Ott. 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 in [facility]. Hospital Follow-Up The patient w as seen today for a hospital follow- up visit. abdominal pain Chronic Conditions *See Chronic Conditions HPI Telehealth I provided this telemedicine visit with real-time audio and video. The patient gave informed consent for the use of telemedicine for this visit. Pt presents on [email or web address] platform via audio and visual interaction. Patient was located in their car driving in [place] and I was located at the office in [place], [place]. Patient has diagnosis of fibromyalgia and [...] ER f/u on 04.20. She presented to [facility] in [place] on April 15 due to heart palpitations. [...] here with her . She presented to [facility] in [place] on April 15 due to heart palpitations. In the emergency room she reported that her Apple Watch noted that she had atrial fibrillation. EKG unremarkable and workup. She was referred to cardiology to wear a Holter monitor.Saw cardiology Tuesday - [facility] and wore a holter for 1 [...] She went to the emergency room at [facility] on March 10 for similar symptoms [...] at night.She used to see neurology at [facility] but was dissatisfied with her care and [...] also able to review previous labs from [facility] including CSF sampling from 2020 and 2022. [...] disease.patient is interested in seeing cardiology at [facility]. new pt Patient presents to office to establish care as a new patient.Previous PCP: Dr Mallory FanThe patient is single and lives at home with her 17-year-old son. 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 She also has a 22-year-old son and [...] the abdomen and pelvis on Tuesday at [place].migraines: issues since age 16. reports daily headaches [...] oophorectomy, 2 c-sections, D and CFamily hx:Son (Eomry): SVT, HTN, anxiety, depressionSon: hear murmurGranddaughter: seizuresMother: age 72 d/t HF, COPD (smoker), alcoholism, CAD, MDD, anxiety, migraines, brain tumor and aneurysmFather: alcoholism, HTN, DM, diverticulitis, CAD w/ stentingSister: age 47, alcoholism, OSASister: age 46, CABG x 4Sister: aliveBrother: HTN, DDD, Brother: livingMaternal grandmother: , CVA, CA, HFScreenings:Colorectal screening - 01/12/2023Mammogram: noPap: s/p hysterectomyEye [...] You are interested i n establishing with psychiatry.[facility] behavioral health walk-in clinic is open Tuesday - Tuesday 8 to 5.[address] [place] [address]Flqby: [phone] options [facility] [phone] call if you need additional recommendations.Please call [...] the following: Medications, including prescription drugs and qdgd-yqk-nutdctk pain relievers.Aerobic exercise and muscle strengthening exercise.Stress [...] send an order for a mammogram to [facility] today Related to Body mass index [...] send a referr al to neurology at [facility] to get you established and assist [...]
--- OUTSIDE RECORDS SUMMARY | 2024-04-17 08:00 | XMS_ITS | Encounter Summary ---
Author Organization [facility] Healthcare Address [address] [place] [address] Care Team Providers Care Orderly Name Role Phone Mallory Kay DO Primary Care Provider [phone] Encounter Details Date Type Department Care Team (Late st Contact Info) Description 04/16/2024 11:55 AM FRONT DESK AGENT Lab [facility] [address] [place] [address] Arrived Social History Tobacco Use [...] on file Legal Sex Female 10:49 PM FRONT DESK AGENT Gender Identity Not on file Sexual Orientation Not on file documented as of this encounter Plan of Treatment Pending Results Name Type Priority Associated Diagnoses Date /Time Cyclic citrul peptide antibody, IgG Lab Routine 04/16/2024 12:06 PM FRONT DESK AGENT Scheduled Orders Name Type Priority Associated Diagnoses Orde r Schedule Angiotensin converting enzyme Lab Routine Ordered: 04/16/2024 TB test, quantiferon gold Lab Routine Ordered: 04/16/2024 documented as of this encounter Procedures Procedure Name Priority Date/Time Associated Diagnosis Comments EGFR Routine 04/16/2024 12:06 PM FRONT DESK AGENT DIFFERENTIAL AUTO Routine 04/16/2024 12: 06 PM FRONT DESK AGENT URINALYSIS AND REFLEX TO MICROSCOPIC Routine 04/16/2024 12:06 PM FRONT DESK AGENT CBC WITH AUTO DIFFERENTIAL Routine 04/16/2024 12:06 PM FRONT DESK AGENT HEPATITIS PANEL, ACUTE Routine 12:06 PM FRONT DESK AGENT HEPATITIS B SURFACE ANTIBODY (IMMUNE STATUS) Routine 04/16/2024 12:06 PM FRONT DESK AGENT ERYTHROCYTE SEDIMENTATION RATE Routine 04/16/2024 12:06 PM FRONT DESK AGENT RHEUMATOID FACTOR Routine 04/16/2024 12: 06 PM FRONT DESK AGENT CRP (ACUTE PHASE) Routine 04/16/2024 12: 06 PM FRONT DESK AGENT URIC ACID Routine 04/16/2024 12:06 PM FRONT DESK AGENT TSH Routine 04/16/2024 12:06 PM FRONT DESK AGENT PHOSPHORUS Routine 04/16/2024 12:06 PM FRONT DESK AGENT IGA Routine 04/16/2024 12:06 PM FRONT DESK AGENT IGG Routine 04/16/2024 12:06 PM FRONT DESK AGENT COMPREHENSIVE METABOLIC PANEL Routine 04/16/2024 12:06 PM FRONT DESK AGENT documented in this encounter Results * eGFR (04/16/2024 12:06 PM FRONT DESK AGENT) eGFR >90 >=60 mL/min/1. 73 m2 Comment: [...] was last reviewed 2020. Testing performed by: [facility], [address] [place] [address]., [address] Blood 04/16/2024 12:0 6 PM FRONT DESK AGENT 04/16/2024 6:40 PM FRONT DESK AGENT Subhash Corey MD LAB BLOOD ORDERABLES Final Res ult SHREYA MAX (SALIX) 1 [facility] Department [place] [address] * Phosphorus (04/16/2024 12:06 PM FRONT DESK AGENT) Phosphorus, pl 3.5 2.3 - 4.5 mg/dL Comment:Testing performed by : [facility], [address] [place] [address]., [address] Blood 04/16/2024 12:0 6 PM FRONT DESK AGENT 04/16/2024 12:07 PM FRONT DESK AGENT Subhash Corey MD LAB BLOOD ORDERABLES Final Res ult SHREYA MAX (SALIX) [address] [place] [address] [place] [address] * Differential, auto (04/16/2024 12:06 PM FRONT DESK AGENT) Neutrophil abs 4.0 1.5 - 6.5 K/cumm Comment:Testing performed by : [facility], [address] [place] [address]., [address] Imm gran abs 0.0 0.0 - 0.1 K/cumm [facility] ([place]) Comment:Testing performed by : [facility], [address] [place] [address]., [address] Lymphocyte abs 1.8 0.8 - 3.3 K/cumm [facility] ([place]) Comment:Testing performed by : [facility], [address] [place] [address]., [address] Monocyte abs 0.4 0.2 - 0.8 K/cumm [facility] ([place]) Comment:Testing performed by : [facility], [address] [place] [address]., [address] Eosinophil abs 0.1 0.0 - 0.5 K/cumm [facility] ([place]) Comment:Testing performed by : [facility], [address] [place] [address]., [address] Basophil abs 0.1 0.0 - 0.1 K/cumm [facility] ([place]) Comment:Testing performed by : [facility], [address] [place] [address]., [address] Neutrophil pct 62.5 % [facility] ([place]) Comment: Interpretive Data Percent cell count reference ranges are not reported, since discordance with absolute values may lead to misinterpretation of CBC data. Current Interpretive Data was last revised on 2017. Testing performed by: [facility], [address] [place] [address]., [address] Imm gran pct 0.3 % [facility] ([place]) Comment: Interpretive Data Percent cell count reference ranges are not reported, since discordance with absolute values may lead to misinterpretation of CBC data. Current Interpretive Data was last revised on 2017. Testing performed by: [address] [address] Lymphocyte pct 28.5 % [facility] ([place]) Comment: Interpretive Data Percent cell count reference ranges are not reported, since discordance with absolute values may lead to misinterpretation of CBC data. Current Interpretive Data was last revised on 2017. Testing performed by: [address] [address] Monocyte pct 6.7 % [facility] ([place]) Comment: Interpretive Data Percent cell count reference ranges are not reported, since discordance with absolute values may lead to misinterpretation of CBC data. Current Interpretive Data was last revised on 2017. Testing performed by: [address] [address] Eosinophil pct 0.9 % [facility] ([place]) Comment: Interpretive Data Percent cell count reference ranges are not reported, since discordance with absolute values may lead to misinterpretation of CBC data. Current Interpretive Data was last revised on 2017. Testing performed by: [address] [address] Basophil pct 1.1 % SHREYA MAX (EWA) Comment: Interpretive Data Percent cell count reference ranges are not reported, since discordance with absolute values may lead to misinterpretation of CBC data. Current Interpretive Data was last revised on 2017. Testing performed by: [address], [address] Blood 04/16/2024 12:0 6 PM FRONT DESK AGENT 04/16/2024 12:08 PM FRONT DESK AGENT us Subhash Corey MD LAB BLOOD ORDERABLES Final Res ult SHREYA MAX (SALIX) 1 [facility] Department [place] [address] * Comprehensive metabolic panel (04/16/2024 12:06 PM FRONT DESK AGENT) Sodium 140 135 - 145 mmol/L Comment:Testing performed by : [address], [address] Potassium, pl 3.7 3.3 - 4.9 mmol/L [facility] ([place]) Comment:Testing performed by : [address], [address] Chloride 102 97 - 110 mmol/L [facility] ([place]) Comment:Testing performed by : [address], [address] CO2 25 22 - 32 mmol/L [facility] ([place]) Comment:Testing performed by : [address], [address] Anion gap 13 2 - 15 mmol/L [facility] ([place]) Comment:Testing performed by : [address], [address] BUN 10 6 - 25 mg/dL [facility] ([place]) Comment:Testing performed by : [address] [place]., [address] Creatinine 0.75 0.60 - 1.10 mg/dL [facility] ([place]) Comment:Testing performed by : [address], [address] Glucose 84 70 - 199 mg/dL CERNER [...] classification and Diagnosis of Diabetes Diabetes Care 202; 46: S19-S40. Current interpretive data was last revised 2022. Testing performed by: [address], [address] Calcium 9.6 8.5 - 10.3 mg/dL [facility] ([place]) Comment:Testing performed by : [address], [address] Bilirubin, total 0.4 0.1 - 1.2 mg/dL [facility] ([place]) Comment:Testing performed by : [address], [address] Protein, pl 7.5 6.5 - 8.5 g/dL [facility] ([place]) Comment:Testing performed by : [address], [address] Albumin 4.7 3.5 - 5.0 g/dL [facility] ([place]) Comment:Testing performed by : [address], [address] Alk phos 66 40 - 130 Units/L [facility] ([place]) Comment:Testing performed by : [address], [address] ALT 20 7 - 45 Units/L [facility] ([place]) Comment:Testing performed by : [address], [address] AST 28 10 - 45 Units/L [facility] ([place]) Comment:Testing performed by : [address], [address] Blood 04/16/2024 12:0 6 PM FRONT DESK AGENT 04/16/2024 12:07 PM FRONT DESK AGENT Subhash Corey MD LAB BLOOD ORDERABLES Final Res ult [facility] ([place]) 1 [facility] Department [place] [address] * (ABNORMAL) CBC with auto differential (04/16/2024 12:06 PM FRONT DESK AGENT) WBC 6.4 3.8 - 9.9 K/cumm Comment:Testing performed by : [address], [address] Hgb 14.7 11.9 - 15.5 g/dL [facility] ([place]) Comment:Testing performed by : [address], [address] Hct 45.1 35.6 - 45.5 % [facility] ([place]) Comment:Testing performed by : [address], [address] Plt 206 150 - 400 K/cumm [facility] ([place]) Comment:Testing performed by : [address], [address] MPV 10.8 9.1 - 12.3 fL [facility] ([place]) Comment:Testing performed by : [address], [address] RBC 4.62 3.90 - 5.20 M/cumm [facility] ([place]) Comment:Testing performed by : [address], [address] MCV 97.6(H) 81.3 - 96.4 fL [facility] ([place]) Comment:Testing performed by : [address], [address] MCH 31.8 27.1 - 33.3 pg [facility] ([place]) Comment:Testing performed by : [address], [address] MCHC 32.6 32.3 - 35.7 g/dL [facility] ([place]) Comment:Testing performed by : [facility], [address] [place] [address], [address] RDW CV 11.9 11.1 - 14.9 % [facility] ([place]) Comment:Testing performed by : [facility], [address] [place] [address], [address] RDW SD 42.7 35.7 - 48.1 fL [facility] ([place]) Comment:Testing performed by : [facility], [address] [place] [address], [address] NRBC abs 0.00 0.00 - 0.01 K/cumm SHREYA MAX (EWA) Comment:Testing performed by : [facility], [address] [place] [address], [address] Blood 04/16/2024 12:0 6 PM FRONT DESK AGENT 04/16/2024 12:08 PM FRONT DESK AGENT Subhash Corey MD LAB BLOOD ORDERABLES Final Res ult SHREYA MAX (SALIX) 1 [facility] [place] [address] * CRP (acute phase) (04/16/2024 12:06 PM FRONT DESK AGENT) CRP <3.0 <=10.0 mg/L Comment:Testing performed by : [facility], [address] [place] [address], [address] Blood 04/16/2024 12:0 6 PM FRONT DESK AGENT 04/16/2024 12:07 PM FRONT DESK AGENT Subhash Corey MD LAB BLOOD ORDERABLES Final Res ult BROOKEJAG MANSOOR (SALIX) 1 [facility] [place] [address] * IgA (04/16/2024 12:06 PM FRONT DESK AGENT) Immunoglobulin A 259 70 - 400 mg/dL Comment:Testing performed by : [facility], [address] [place] [address]., [address] Blood 04/16/2024 12:0 6 PM FRONT DESK AGENT 04/16/2024 12:07 PM FRONT DESK AGENT us Subhash Corey MD LAB BLOOD ORDERABLES Final Res ult SHREYA MAX (EWA) 1 [facility] [place] [address] * IgG (04/16/2024 12:06 PM FRONT DESK AGENT) Immunoglobulin G 1,142 700 - 1,600 mg/dL Comment:Testing performed by : [facility], [address] [place] [address], [address] Blood 04/16/2024 12:0 6 PM FRONT DESK AGENT 04/16/2024 12:07 PM FRONT DESK AGENT us Subhash Corey MD LAB BLOOD ORDERABLES Final Res ult Performing Organization Address [facility] Co de Phone Number SHREYA MAX (EWA) 1 [facility] [place] [address] * Hepatitis B surface antibody (immune status) Blood (04/16/2024 12:06 PM FRONT DESK AGENT) HBsAb (immune status) Nonreactive Comment: Interpretive Data [...] last revised on 19. Testing performed by: [address] [address] Blood 04/16/2024 12:0 6 PM FRONT DESK AGENT 04/16/2024 12:10 PM FRONT DESK AGENT us Subhash Corey MD LAB MICROBIOLOGY - GENERAL ORD ERABLES Final Result SHREYA MANSOOR (EWA) 1 [facility] Department [place] [address] * Hepatitis panel, acute Blood (04/16/2024 12:06 PM FRONT DESK AGENT) Hep A IgM Nonreactive Nonreactive Comment: Interpretive Data: If Hep A IgM Ab is reported as Equivocal, a new sample should be drawn in two weeks for testing. Current interpretive data was last revised on 19. Testing performed by: [address] [address] Hep B core IgM Nonreactive Nonreactive Bettie MAX (EWA) Comment: Interpretive Data If HepB Core IgM Ab is reported as Equivocal, a new sample should be drawn in two weeks for testing. Current interpretive data was last revised on 19. Testing performed by: [facility], [address] [place] [address]., [address] Hep C Ab Nonreactive Nonreactive SHREYA MAX [...] last revised on 2019. Testing performed by: [facility], [address] [place] [address]., [address] HepBsAg Nonreactive Nonreactive SHREYA MAX (EWA) Comment:Testing performed by : [address] [address] Blood 04/16/2024 12:0 6 PM FRONT DESK AGENT 04/16/2024 12:09 PM FRONT DESK AGENT Subhash Corey MD LAB MICROBIOLOGY - GENERAL ORD ERABLES Final Result BROOKEJAG MAX (EWA) [address] [place] [phone] * Rheumatoid factor (04/16/2024 12:06 PM FRONT DESK AGENT) Rheumatoid factor, quant 10 <=15 IUnits/mL Comment:Testing performed by : [address], [address] Blood 04/16/2024 12:0 6 PM FRONT DESK AGENT 04/16/2024 12:07 PM FRONT DESK AGENT us Subhash Corey MD LAB BLOOD ORDERABLES Final Res ult SHREYA MAX (SALIX) [address] [place] [phone] * Erythrocyte sedimentation rate (04/16/2024 12:06 PM FRONT DESK AGENT) Erythrocyte sedimentation rate 12 1 - 20 mm/hr Comment:Testing performed by : [facility], [address] [place] [address], [address] Blood 04/16/2024 12:0 6 PM FRONT DESK AGENT 04/16/2024 12:08 PM FRONT DESK AGENT us Subhash Corey MD LAB BLOOD ORDERABLES Final Res ult SHREYA MAX (EWA) [address] [place] [id number] * TSH (04/16/2024 12:06 PM FRONT DESK AGENT) Thyroid Stimulating Hormone 0.91 0.30 - 4.20 mcIUnit/mL Comment:Testing performed by : [address] [address] Blood 04/16/2024 12:0 6 PM FRONT DESK AGENT 04/16/2024 12:07 PM FRONT DESK AGENT us Subhash Corey MD LAB BLOOD ORDERABLES Final Res ult SHREYA MAX (EWA) 1 [facility] [place] [address] * (ABNORMAL) Urinalysis reflex to microscopic (04/16/2024 12:06 PM FRONT DESK AGENT) Color, ur Yellow Yellow Comment:Testing performed by : [address] [address] Clarity, ur Clear Clear SHREYA Ross (EWA) Comment:Testing performed by : [address] [address] Specific gravity, ur 1.005 1.003 - 1.030 SHREYA MAX (EWA) Comment:Testing performed by : [address], [address] pH, urine 5.5 SHREYA MAX (EWA) Comment: Interpretive Data U rine pH is affected by diet, medications, systemic acid-base disturbances, and renal tubular function. pH may affect urinary stone formation. For example, urine pH below 6.0 may help reduce the tendency for calcium phosphate stones and pH greater than 6.0 may reduce the tendency for uric acid stone formation. Source: [facility] Current Interpretive Data was last revised on 2017 Testing performed by: [facility], [address] [place] [address]., [address] Protein, ur ql Negative Negative [facility] ([place]) Comment:Testing performed by : [address] [address] Glucose, ur ql Negative Negative [facility] ([place]) Comment:Testing performed by : [address] [address] Ketones, ur 1+(A) Negative SHREYA Ross (EWA) Comment:Testing performed by : [address] [address] Bilirubin, ur Negative Negative [facility] ([place]) Comment:Testing performed by : [address] [address] Blood, ur Negative Negative [facility] ([place]) Comment:Testing performed by : [address] [address] Urobilinogen, ur <2.0 <2.0 mg/dL SHREYA MAX (EWA) Comment:Testing performed by : [facility], [address] [place] [address]., [address] Nitrite, ur Negative Negative SHREYA Ross (EWA) Comment:Testing performed by : [facility], [address] [place] [address]., [address] Leukocyte esterase, ur Negative Negative SHREYA MAX (EWA) Comment:Testing performed by : [facility], [address] [place] [address], [address] UA reflex comment Reflex conditions for microscopic UA not met. SHREYA MAX (EWA) Comment:Testing performed by : [facility], [address] [place] [address], [address] Urine, clean voided 04/16/2024 12:06 PM FRONT DESK AGENT 04/16/2024 12:07 PM FRONT DESK AGENT us Subhash Corey MD LAB URINE ORDERABLES Final Res ult Performing Organization Address City/[facility]/ZIP Co de Phone Number SHREYA MAX (EWA) 1 [facility] [place] [address] * Uric acid (04/16/2024 12:06 PM FRONT DESK AGENT) Uric acid 3.2 2.5 - 7.0 mg/dL Comment:Testing performed by : [facility], [address] [place] [address], [address] Blood 04/16/2024 12:0 6 PM FRONT DESK AGENT 04/16/2024 12:07 PM FRONT DESK AGENT Subhash Corey MD LAB BLOOD ORDERABLES Final Res ult SHREYA MAX (SALIX) 1 [facility] [place] [address] documented in this encounter Visit Diagnoses Not on filedocumented in this encounter Care Teams Orderly Relationship Specialty Start Date End Date Mallory Kay DO PCP - General Internal Medicine 03/10/23 documented as of this encounter
--- OUTSIDE RECORDS SUMMARY | 2024-04-17 08:00 | XMS_ITS | Continuity of Care Document ---
Author Organization [facility] Address [address] [place] [address] Phone Care Team Providers Care Sem Manager Name Role Phone Maxime Acuña Unavailable Unavailable [...] Diagnoses Date Provider Providers Copied on Encounter [facility], [address], [place], [id number], [place] tel:[phone] [facility] No Information [address]. [address], [place], [id number] , [place]. tel:[phone] Office/outpa tient visit,new, mod [facility], [address], [place], [id number], [place] tel:[phone] [facility] wrist (chief complaint) Strain of wrist, right, initial encounterTendinitis of right wrist 6 Gurinder [address]. [address], [place], [id number] , . tel:[phone] [facility], [address], [place], [id number], tel:[phone] [facility] No Information 6 Gur[address]. [address], [place], [id number] , . tel:[phone] Referring Provider: Maxime Fairchild, [address] [place], [address] . tel:[phone] Family History Family Member Type Diagnosis Age At Onset Problem (finding) Family history of hyper tension Problem (finding) Family history of chronic obstructive lung disease Problem (finding) Family history of diabetes mellitus in first degree relative Problem (finding) Family history of pulmo nary emphysema Payers Payer name Insurance type Covered libertarian ID Authoriza tiesmer(s) [employer] Medicaid [place] [id number] Social History Type Description Quantity Date Captured [...]
--- OUTSIDE RECORDS SUMMARY | 2024-04-17 08:00 | XMS_ITS | Clinical Summary ---
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 Encounters Date Type Department Care Team Description 02/14/2024 7:48 AM TURF FARMER - 02/14/2024 11:59 PM TURF FARMER Hospital Encounter [facility] Mammography [facility] [address] Licha Kay, DO Discharge Disposition: Home or [...] Sex Assigned at Female 04/05/2023 8:40 AM TURF FARMER Legal Sex Female 6:08 PM CDT Gender Identity Female 04/05/2023 8:40 AM TURF FARMER Sexual Orientation Straight 04/05/2023 8: 40 AM TURF FARMER Occupation Industry Job Start Date Job End [...] Adult (#1) 2023 11/15/2022, 01/27/2012 PHQ-2 (Physician [place]) 02/22/2024 Mammogram Screening 02/13/2026 02/14/2024 HPV Vaccines [...] LIZ BILAT DIGI STAT 02/14/2024 8:16 AM TURF FARMER Breast pain, left from Last 3 Months Results * MG DIAG W LIZ BILAT DIGI (02/14/2024 8:16 AM TURF FARMER) Anatomical Region Laterality Modality Breast Bilateral Mammography 02/14/2024 8:32 AM TURF FARMER Impressions 02/14/2024 8:35 AM TURF FARMER =====IMPRESSION:===== No mammographic findings suggestive of malignancy ASSESSMENT: ACR BI-RADS 2 - BENIGN FINDING(S) Recommendation: 1: Routine Screening Bilateral Ordered By: LICHA KAY Interpreted By: González Higginbotham MD, 02/14/2024 8:32 AM Narrative 02/14/2024 8:35 AM TURF FARMER [facility] [address] [place] [address] EXAMINATION: Digital bilateral diagnostic mammogram with 3-D [...] from Last 3 Months Insurance Care Teams Acquisition Editor Relationship Specialty Start Date End Date [place], Licha A, DO [address] [place] [address] PCP - General INTERNAL MEDICINE 03/11/23
--- OUTSIDE RECORDS SUMMARY | 2024-04-17 08:00 | XMS_ITS | Clinical Summary ---
Author Organization [facility] Address [address] [place] [address] Care Team Providers Care Baggage Security Checker Name Role Phone ElizaMallory Crissy RICHTER Primary Care Provider [phone] Allergies Active Allergy Reactions Criticality Noted Date [...] Department Care Team Description 04/16/2024 11:55 AM BRANCH OPERATIONS MANAGER Lab [facility] [address] [place] [address] Arrived 04/09/2024 11:00 AM BRANCH OPERATIONS MANAGER Office Visit [facility] Pulmonary at [address] [place] [address] Azam Gordon DO Shortness of [...] on file Legal Sex Female 10:49 PM BRANCH OPERATIONS MANAGER Gender Identity Not on file Sexual Orientation Not on file Obstetrics History Last Filed Vital Signs Vital Sign Reading Time Taken Comments Blood Pressure 117/76 04/09/2024 10:48 AM BRANCH OPERATIONS MANAGER Pulse 70 04/09/2024 10:48 AM BRANCH OPERATIONS MANAGER Temperature 36.5 C (97.7 F) 04/09/2024 10:48 AM BRANCH OPERATIONS MANAGER Respiratory Rate 16 06/09/2023 10:25 AM CDT Oxygen Saturation 98% 04/09/2024 10:48 AM BRANCH OPERATIONS MANAGER Inhaled Oxygen Concentration - - Weight 83.2 kg (183 lb 8 oz) 04/09/2024 10:48 AM BRANCH OPERATIONS MANAGER Height 162.6 cm (5' 4 ) 04/09/2024 10:48 AM BRANCH OPERATIONS MANAGER Body Mass Index 31.5 04/09/2024 10:48 AM BRANCH OPERATIONS MANAGER Plan of Treatment Health Maintenance Due Date Last Done Comments Depression Screening 1981 DTaP/Tdap/Td Vaccine (1 - Tdap) 1992 Varicella Vaccines (1 of 2 - 13+ 2-dose series) 1994 Regular Well Visit/Exam 18-64 09/20/1999 Covid-19 Vaccine (4 - 2023-2 5 season) 2023 06/06/2021, 06/01/2020, 05/12/2020 Breast Cancer Screening-Mammogram 02/13/2025 02/14/2024, 02/14/2024 Influenza Vaccine Completed 11/07/2023, 11/15/2022 Hepatitis B Screening Completed 04/16/2024 Hepatitis C Screening Completed 04/16/2024 HPV Vaccines Aged Out No longer eligi ble based on patient's age to complete this topic Pneumococcal vaccine <65 Aged Out No longer eligible based on patient's age to complete this topic Procedures Procedure Name Priority Date/Time Associated Diagnosis Comments EGFR Routine 04/16/2024 12:06 PM BRANCH OPERATIONS MANAGER PHOSPHORUS Routine 04/16/2024 12:06 PM BRANCH OPERATIONS MANAGER DIFFERENTIAL AUTO Routine 04/16/2024 12: 06 PM BRANCH OPERATIONS MANAGER COMPREHENSIVE METABOLIC PANEL Routine 04/16/2024 12:06 PM BRANCH OPERATIONS MANAGER CBC WITH AUTO DIFFERENTIAL Routine 04/16/2024 12:06 PM BRANCH OPERATIONS MANAGER CRP (ACUTE PHASE) Routine 04/16/2024 12: 06 PM BRANCH OPERATIONS MANAGER IGA Routine 04/16/2024 12:06 PM BRANCH OPERATIONS MANAGER IGG Routine 04/16/2024 12:06 PM BRANCH OPERATIONS MANAGER RHEUMATOID FACTOR Routine 04/16/2024 12: 06 PM BRANCH OPERATIONS MANAGER ERYTHROCYTE SEDIMENTATION RATE Routine 04/16/2024 12:06 PM BRANCH OPERATIONS MANAGER TSH Routine 04/16/2024 12:06 PM BRANCH OPERATIONS MANAGER URINALYSIS AND REFLEX TO MICROSCOPIC Routine 04/16/2024 12:06 PM BRANCH OPERATIONS MANAGER URIC ACID Routine 04/16/2024 12:06 PM BRANCH OPERATIONS MANAGER HEPATITIS B SURFACE ANTIBODY (IMMUNE STATUS) Routine 04/16/2024 12:06 PM BRANCH OPERATIONS MANAGER HEPATITIS PANEL, ACUTE Routine 12:06 PM BRANCH OPERATIONS MANAGER from Last 3 Months Results * eGFR (04/16/2024 12:06 PM BRANCH OPERATIONS MANAGER) eGFR >90 >=60 mL/min/1. 73 m2 Comment: [...] was last reviewed 2020. Testing performed by: [facility], [address] [place] [address], [place]., [id number] Blood 04/16/2024 12:0 6 PM BRANCH OPERATIONS MANAGER 04/16/2024 6:40 PM BRANCH OPERATIONS MANAGER us Subhash Corey MD LAB BLOOD ORDERABLES Final Res ult SHREYA MAX YACHATS) 9 [facility] [place] [address] * Differential, auto (04/16/2024 12:06 PM BRANCH OPERATIONS MANAGER) Neutrophil abs 4.0 1.5 - 6.5 K/cumm Comment:Testing performed by : [facility], [address] [place] [address]., [address] Imm gran abs 0.0 0.0 - 0.1 K/cumm [facility] ([place]) Comment:Testing performed by : [facility], [address] [place] [address]., [address] Lymphocyte abs 1.8 0.8 - 3.3 K/cumm [facility] ([place]) Comment:Testing performed by : [facility], [address] [place] [address]., [address] Monocyte abs 0.4 0.2 - 0.8 K/cumm [facility] ([place]) Comment:Testing performed by : [facility], [address] [place] [address]., [address] Eosinophil abs 0.1 0.0 - 0.5 K/cumm [facility] ([place]) Comment:Testing performed by : [facility], [address] [place] [address]., [address] Basophil abs 0.1 0.0 - 0.1 K/cumm [facility] ([place]) Comment:Testing performed by : [facility], [address] [place] [address]., [address] Neutrophil pct 62.5 % [facility] ([place]) Comment: Interpretive Data Percent cell count reference ranges are not reported, since discordance with absolute values may lead to misinterpretation of CBC data. Current Interpretive Data was last revised on 2017. Testing performed by: [facility], [address] [place] [address]., [address] Imm gran pct 0.3 % [facility] ([place]) Comment: Interpretive Data Percent cell count reference ranges are not reported, since discordance with absolute values may lead to misinterpretation of CBC data. Current Interpretive Data was last revised on 2017. Testing performed by: [facility], [address] [place] [address]., [address] Lymphocyte pct 28.5 % [facility] ([place]) Comment: Interpretive Data Percent cell count reference ranges are not reported, since discordance with absolute values may lead to misinterpretation of CBC data. Current Interpretive Data was last revised on 2017. Testing performed by: [address], [address] Monocyte pct 6.7 % [facility] ([place]) Comment: Interpretive Data Percent cell count reference ranges are not reported, since discordance with absolute values may lead to misinterpretation of CBC data. Current Interpretive Data was last revised on 2017. Testing performed by: [address] [address] Eosinophil pct 0.9 % ERWIN R MANSOOR (E[place]) Comment: Interpretive Data Percent cell count reference ranges are not reported, since discordance with absolute values may lead to misinterpretation of CBC data. Current Interpretive Data was last revised on 2017. Testing performed by: [address] [address] Basophil pct 1.1 % SHREYA MAX ([place]) Comment: Interpretive Data Percent cell count reference ranges are not reported, since discordance with absolute values may lead to misinterpretation of CBC data. Current Interpretive Data was last revised on 2017. Testing performed by: [address], [address] Blood 04/16/2024 12:0 6 PM BRANCH OPERATIONS MANAGER 04/16/2024 12:08 PM BRANCH OPERATIONS MANAGER us Subhash Corey MD LAB BLOOD ORDERABLES Final Res ult SHREYA MAX ([place]) 1 [facility] [place] [address] * (ABNORMAL) Urinalysis reflex to microscopic (04/16/2024 12:06 PM BRANCH OPERATIONS MANAGER) Color, ur Yellow Yellow Comment:Testing performed by : [address] [address] Clarity, ur Clear Clear SHREYA STEELE ([place]) Comment:Testing performed by : [address] [address] Specific gravity, ur 1.005 1.003 - 1.030 SHREYA MAX ([place]) Comment:Testing performed by : [address], [address] pH, urine 5.5 SHREYA MAX (EWA) Comment: Interpretive Data U rine pH is affected by diet, medications, systemic acid-base disturbances, and renal tubular function. pH may affect urinary stone formation. For example, urine pH below 6.0 may help reduce the tendency for calcium phosphate stones and pH greater than 6.0 may reduce the tendency for uric acid stone formation. Source: [facility] [employer] Current Interpretive Data was last revised on 2017 Testing performed by: [facility], [address] [place] [address], [address] Protein, ur ql Negative Negative [facility] ([place]) Comment:Testing performed by : [facility], [address] [place] [address], [address] Glucose, ur ql Negative Negative [facility] ([place]) Comment:Testing performed by : [address], [address] Ketones, ur 1+(A) Negative [facility] ([place]) Comment:Testing performed by : [address], [address] Bilirubin, ur Negative Negative [facility] ([place]) Comment:Testing performed by : [address], [address] Blood, ur Negative Negative [facility] ([place]) Comment:Testing performed by : [address], [address] Urobilinogen, ur <2.0 <2.0 mg/dL [facility] ([place]) Comment:Testing performed by : [address], [address] Nitrite, ur Negative Negative [facility] ([place]) Comment:Testing performed by : [address], [address] Leukocyte esterase, ur Negative Negative [facility] ([place]) Comment:Testing performed by : [address], [address] UA reflex comment Reflex conditions for microscopic UA not met. [facility] ([place]) Comment:Testing performed by : [address], [address] Urine, clean voided 04/16/2024 12:06 PM BRANCH OPERATIONS MANAGER 04/16/2024 12:07 PM BRANCH OPERATIONS MANAGER us Saulat Madhav MD LAB URINE ORDERABLES Final Res ult [facility] ([place]) [facility] [place] [address] * (ABNORMAL) CBC with auto differential (04/16/2024 12:06 PM BRANCH OPERATIONS MANAGER) WBC 6.4 3.8 - 9.9 K/cumm Comment:Testing performed by : [facility], [address] [place] [address], [address] Hgb 14.7 11.9 - 15.5 g/dL [facility] ([place]) Comment:Testing performed by : [address], [address] Hct 45.1 35.6 - 45.5 % [facility] ([place]) Comment:Testing performed by : [address], [address] Plt 206 150 - 400 K/cumm [facility] ([place]) Comment:Testing performed by : [address], [address] MPV 10.8 9.1 - 12.3 fL [facility] ([place]) Comment:Testing performed by : [address], [address] RBC 4.62 3.90 - 5.20 M/cumm [facility] ([place]) Comment:Testing performed by : [address], [address] MCV 97.6(H) 81.3 - 96.4 fL [facility] ([place]) Comment:Testing performed by : [address], [address] MCH 31.8 27.1 - 33.3 pg [facility] ([place]) Comment:Testing performed by : [address], [address] MCHC 32.6 32.3 - 35.7 g/dL [facility] ([place]) Comment:Testing performed by : [address], [address] RDW CV 11.9 11.1 - 14.9 % [facility] ([place]) Comment:Testing performed by : [facility], [address] [place] [address]., [address] RDW SD 42.7 35.7 - 48.1 fL SHREYA MAX ([place]) Comment:Testing performed by : [facility], [address] [place] [address]., [address] NRBC abs 0.00 0.00 - 0.01 K/cumm SHREYA MAX ([place]) Comment:Testing performed by : [facility], [address] [place] [address]., [address] Blood 04/16/2024 12:0 6 PM BRANCH OPERATIONS MANAGER 04/16/2024 12:08 PM BRANCH OPERATIONS MANAGER us Subhash Corey MD LAB BLOOD ORDERABLES Final Res ult SHREYA MAX ([place]) 1 [facility] [place] [address] * Hepatitis panel, acute Blood (04/16/2024 12:06 PM BRANCH OPERATIONS MANAGER) Hep A IgM Nonreactive Nonreactive Comment: Interpretive Data: If Hep A IgM Ab is reported as Equivocal, a new sample should be drawn in two weeks for testing. Current interpretive data was last revised on 19. Testing performed by: [facility], [address] [place] [address]., [address] Hep B core IgM Nonreactive Nonreactive Bettie MAX (EWA) Comment: Interpretive Data If HepB Core IgM Ab is reported as Equivocal, a new sample should be drawn in two weeks for testing. Current interpretive data was last revised on 19. Testing performed by: [facility], [address] [place] [address]., [address] Hep C Ab Nonreactive Nonreactive SHREYA MAX [...] last revised on 2019. Testing performed by: [facility], [address] [place] [address]., [address] HepBsAg Nonreactive Nonreactive SHREYA MAX (E[place]) Comment:Testing performed by : [facility], [address] [place] [address]., [address] Blood 04/16/2024 12:0 6 PM BRANCH OPERATIONS MANAGER 04/16/2024 12:09 PM BRANCH OPERATIONS MANAGER Subhash Corey MD LAB MICROBIOLOGY - GENERAL ORD ERABLES Final Result Performing Organization Address City/[facility]/ZIP Co de Phone Number SHREYA MAX (EWA) 1 [facility] [place] [address] * Hepatitis B surface antibody (immune status) Blood (04/16/2024 12:06 PM BRANCH OPERATIONS MANAGER) HBsAb (immune status) Nonreactive Comment: Interpretive Data [...] last revised on 19. Testing performed by: [facility], [address] [place] [address]., [address] Blood 04/16/2024 12:0 6 PM BRANCH OPERATIONS MANAGER 04/16/2024 12:10 PM BRANCH OPERATIONS MANAGER us Subhash Corey MD LAB MICROBIOLOGY - GENERAL ORD ERABLES Final Result Performing Organization Address City/[facility]/ZIP Co de Phone Number SHREYA MAX (YACHATS) 1 [facility] [place] [address] * Erythrocyte sedimentation rate (04/16/2024 12:06 PM BRANCH OPERATIONS MANAGER) Erythrocyte sedimentation rate 12 1 - 20 mm/hr Comment:Testing performed by : [facility], [address] [place] [address]., [address] Blood 04/16/2024 12:0 6 PM BRANCH OPERATIONS MANAGER 04/16/2024 12:08 PM BRANCH OPERATIONS MANAGER Result Ifeoma Corey MD LAB BLOOD ORDERABLES Final Res ult SHREYA MAX (EWA) 1 [place] [address] * Rheumatoid factor (04/16/2024 12:06 PM BRANCH OPERATIONS MANAGER) Rheumatoid factor, quant 10 <=15 IUnits/mL Comment:Testing performed by : [facility], [address] [place] [address], [id number] Blood 04/16/2024 12:0 6 PM BRANCH OPERATIONS MANAGER 04/16/2024 12:07 PM BRANCH OPERATIONS MANAGER Result Ifeoma Corey MD LAB BLOOD ORDERABLES Final Res ult Performing Organization Address [facility] Co de Phone Number SHREYA MAX (EWA) 1 [place] [address] * CRP (acute phase) (04/16/2024 12:06 PM BRANCH OPERATIONS MANAGER) CRP <3.0 <=10.0 mg/L Comment:Testing performed by : [facility], [address] [place] [address], [id number] Blood 04/16/2024 12:0 6 PM BRANCH OPERATIONS MANAGER 04/16/2024 12:07 PM BRANCH OPERATIONS MANAGER Result Ifeoma Corey MD LAB BLOOD ORDERABLES Final Res ult Performing Organization Address City/[facility]/ZIP Co de Phone Number SHREYA MAX (EWA) 1 [place] [address] * Uric acid (04/16/2024 12:06 PM BRANCH OPERATIONS MANAGER) Uric acid 3.2 2.5 - 7.0 mg/dL Comment:Testing performed by : [facility] [address] [place] [address], [address] Blood 04/16/2024 12:0 6 PM BRANCH OPERATIONS MANAGER 04/16/2024 12:07 PM BRANCH OPERATIONS MANAGER us Subhash Corey MD LAB BLOOD ORDERABLES Final Res ult SHREYA MAX (YACHATS) 1 [facility] [place] [address] * TSH (04/16/2024 12:06 PM BRANCH OPERATIONS MANAGER) Thyroid Stimulating Hormone 0.91 0.30 - 4.20 mcIUnit/mL Comment:Testing performed by : [facility], [address] [place] [address], [id number] Blood 04/16/2024 12:0 6 PM BRANCH OPERATIONS MANAGER 04/16/2024 12:07 PM BRANCH OPERATIONS MANAGER us Subhash Corey MD LAB BLOOD ORDERABLES Final Res ult Performing Organization Address [facility]/ZIP Co de Phone Number SHREYA MAX (YACHATS) 1 [facility] [place] [address] * Phosphorus (04/16/2024 12:06 PM BRANCH OPERATIONS MANAGER) Phosphorus, pl 3.5 2.3 - 4.5 mg/dL Comment:Testing performed by : [facility], [address] [place] [address], [place]., [address] Blood 04/16/2024 12:0 6 PM BRANCH OPERATIONS MANAGER 04/16/2024 12:07 PM BRANCH OPERATIONS MANAGER us Subhash Corey MD LAB BLOOD ORDERABLES Final Res ult SHREYA MAX (YACHATS) 1 [facility] [place] [address] * IgA (04/16/2024 12:06 PM BRANCH OPERATIONS MANAGER) Immunoglobulin A 259 70 - 400 mg/dL Comment:Testing performed by : [facility], [address] [place] [address]., [address] Blood 04/16/2024 12:0 6 PM BRANCH OPERATIONS MANAGER 04/16/2024 12:07 PM BRANCH OPERATIONS MANAGER us Subhash Corey MD LAB BLOOD ORDERABLES Final Res ult Performing Organization Address City/[facility]/ZIP Co de Phone Number SHREYA MAX (EWA) 1 [facility] [place] [address] * IgG (04/16/2024 12:06 PM BRANCH OPERATIONS MANAGER) Pathologist [facility] Immunoglobulin G 1,142 700 - 1,600 mg/dL Comment:Testing performed by : [facility], [address] [place] [address], [id number] Blood 04/16/2024 12:0 6 PM BRANCH OPERATIONS MANAGER 04/16/2024 12:07 PM BRANCH OPERATIONS MANAGER Subhash Corey MD LAB BLOOD ORDERABLES Final Res ult Performing Organization Address [facility]/ZIP Co de Phone Number BROOKEJAG MAX (EWA) 1 [facility] [place] [address] * Comprehensive metabolic panel (04/16/2024 12:06 PM BRANCH OPERATIONS MANAGER) Pathologist [facility] Sodium 140 135 - 145 mmol/L Comment:Testing performed by : [facility], [address] [place] [address]., [address] Potassium, pl 3.7 3.3 - 4.9 mmol/L [facility] ([place]) Comment:Testing performed by : [facility], [address] [place] [address]., [address] Chloride 102 97 - 110 mmol/L [facility] ([place]) Comment:Testing performed by : [address] [address] CO2 25 22 - 32 mmol/L [facility] ([place]) Comment:Testing performed by : [facility], [address] [place] [address]., [address] Anion gap 13 2 - 15 mmol/L [facility] ([place]) Comment:Testing performed by : [address], [address] BUN 10 6 - 25 mg/dL [facility] ([place]) Comment:Testing performed by : [address], [address] Creatinine 0.75 0.60 - 1.10 mg/dL [facility] ([place]) Comment:Testing performed by : [address], [address] Glucose 84 70 - 199 mg/dL CERNER [...] was last revised 2022. Testing performed by: [address], [address] Calcium 9.6 8.5 - 10.3 mg/dL [facility] ([place]) Comment:Testing performed by : [address] [address] Bilirubin, total 0.4 0.1 - 1.2 mg/dL [facility] ([place]) Comment:Testing performed by : [address], [address] Protein, pl 7.5 6.5 - 8.5 g/dL [facility] ([place]) Comment:Testing performed by : [address], [address] Albumin 4.7 3.5 - 5.0 g/dL [facility] ([place]) Comment:Testing performed by : [address], [address] Alk phos 66 40 - 130 Units/L [facility] ([place]) Comment:Testing performed by : [address], [address] ALT 20 7 - 45 Units/L [facility] ([place]) Comment:Testing performed by : [facility], [address] [place] [address]., [address] AST 28 10 - 45 Units/L [facility] ([place]) Comment:Testing performed by : [facility], [address] [place] [address]., [address] Blood 04/16/2024 12:0 6 PM BRANCH OPERATIONS MANAGER 04/16/2024 12:07 PM BRANCH OPERATIONS MANAGER us Subhash Corey MD LAB BLOOD ORDERABLES Final Res ult [facility] ([place]) 1 [facility] [place] [address] from Last 3 Months Insurance S[employer]ARTIR Lude[employer]GIANCE [employer]ude[employer] Care Teams Baggage Security Checker Relationship Specialty Start Date End Date Mallory Kay DO PCP - General Internal Medicine 03/10/23
== END ==
PROVIDERS: PCP Internal Medicine; Visit Provider Internal Medicine
DX: M79.7 Fibromyalgia (principal); M19.041 Primary osteoarthritis, right hand; M19.042 Primary osteoarthritis, left hand; M47.896 Other spondylosis, lumbar region; M53.3 Sacrococcygeal disorders, not elsewhere classified; M19.072 Primary osteoarthritis, left ankle and foot; M77.32 Calcaneal spur, left foot; M19.071 Primary osteoarthritis, right ankle and foot; M77.31 Calcaneal spur, right foot
CPT/HCPCS: 72220; 73130; 73630